=== PATIENT | male | born 1995 | race Caucasian/White ===

== ENCOUNTER 2023-07-01 23:10 | Emergency (ER) | payer MEDICAID, SELFPAY ==
[2023-07-01 23:11] VITALS: BP 147/94; PULSE 64; RESP 18; TEMP 36.1; O2SAT 100
[2023-07-01 23:22] VITALS: BMI 35.3
[2023-07-01] MEDS: Oxycodone/Apap 5/325 Tablet PO (23:37)
--- NOTE | 2023-07-01 23:38 | RAD_ITS ---
INDICATION: pain EXAMINATION/TECHNIQUE: X-RAY - RIGHT XR Ankle Min 3 Views 3 VIEWS COMPARISON: No relevant prior comparison study available FINDINGS: SOFT TISSUES: No soft tissue swelling or gas. No radiopaque foreign body. BONES/JOINTS: No acute fracture or subluxation.. Normal alignment. Preservation of the joint space.. No sclerotic or destructive changes observed. RAD/Ankle min 3 Views IMPRESSION: Negative. Electronically Signed: Moriah Arguelles MD at 0:15 EST ,
--- NOTE | 2023-07-02 00:26 | EX.ED.DYSGE1 ---
HPI History of Present Illness Chief Complaint: Lower Extremity Injury Informant: patient and spouse/S.O. Narrative Narrative: Patient is a 27-year-old male with no significant past medical history. He states on Thursday he jumped off a truck bed and when he landed it was on a piece of concrete that was uneven causing his right ankle to roll inward. He states he had pain at that time but felt that it would improve therefore he waited a few days. He states that despite taking it easy and giving it time the ankle has been persistently swollen and painful and has had difficulty ambulating. He has concern for fracture and therefore comes in for evaluation [facility] Medical History no medical history no medical history Home Medications oxycodone-acetaminophen 5 mg-325 mg tablet (Percocet) 1 tab PO Q6H PRN pain 3 days #12 tabs 07/02/23 [Rx Last Taken Unknown] Allergy/AdvReac Type Severity Reaction Status Date / Time Penicillins Allergy Severe Swelling Verified 07/01/23 23:12 Family History (Updated 07/01/23 @ 23:21 by Christina Douglass) Mother Thyroid disorder Surgical History (Updated 07/01/23 @ 23:21 by Christina Douglass) H/O wrist surgery Hx of appendectomy Social History (Updated 07/01/23 @ 23:21 by Christina Douglass) household members: significant other and children housing: apartment Smoking Status: Current every day smoker tobacco type: cigarettes ROS ROS ED Constitutional Constitutional ED: Denies chills or fever(s) ENT ENT ED: Denies sore throat Cardiovascular Cardiovascular: Denies chest pain Respiratory/Chest Respiratory/Chest: Denies cough or dyspnea Gastrointestinal Gastrointestinal: Denies abdominal pain, diarrhea, nausea or vomiting Genitourinary Genitourinary ED: Denies dysuria Musculoskeletal Musculoskeletal: Reports other Details: positive Right ankle pain Integumentary Denies rash Neurologic Neurologic: Denies headache(s) or paresthesias Hematologic/Lymphatic Hematologic/Lymphatic: Denies easy bleeding or easy bruising EXAM Physical Exam Const Vital Signs: 07/01/23 23:11 Temperature 96.9 F L Temperature Source Temporal Pulse Rate 64 Respiratory Rate 18 Blood Pressure 147/94 H Blood Pressure Mean 111 Pulse Ox 100 Oxygen Delivery Method Room Air Positive well nourished and well developed General Appearance ED: well developed HEENT HEENT Narrative: Normocephalic atraumatic Eyes PERRL and EOMs intact bilaterally Neck supple Resp normal respiratory effort and clear to auscultation bilaterally Cardio regular rate and regular rhythm Extremity Extremity Narrative: Right lower extremity is neurovascularly intact. There is mild soft tissue swelling along the lateral aspect. There is pain on palpation underneath the lateral malleolus. Achilles tendon is intact. There is mild laxity with inversion of the right ankle compared to the left. No obvious bony deformity or joint effusion. No pain with palpation of the right foot. remainder of the exam is normal Neuro oriented x3, CN's II-XII intact bilaterally and no sensory deficits noted Sensorium / Orientation: alert Psych mental status grossly normal Skin no rashes or lesions noted MDM MDM MDM Narrative Medical decision making narrative: Patient presented to the ER with report of a inversion injury to his right ankle. Despite taking time and reducing activity he has had persistent pain and swelling. Differential diagnosis is for acute ankle fracture versus grade 1 versus grade 2 ankle sprain versus ankle contusion. The x-ray was obtained to check for potential fracture and this revealed no fracture dislocation or joint effusion. By exam he has pain with inversion and slight laxity on the right compared to left indicating a grade 2 ankle sprain. He will be given a walking boot for stabilization but as he is neurovascular intact without any signs of acute fracture or dislocation he is otherwise safe for discharge History & Record Review Discussion w/independent historian: Patient and Significant other Radiography Diagnostic Testing: Clinical Impression(s) from Imaging Studies Ankle X-Ray 07/01/23 23:38 IMPRESSION: Negative. Electronically Signed: Moriah Arguelles MD at 0:15 EST , X-ray of the right ankle as interpreted by the emergency medicine physician reveals no acute fracture or dislocation or joint effusion Discharge Plan Triage Chief Complaint: Lower Extremity Injury ED Provider: Misha Cuenca Dx/Rx/DC Orders Clinical Impression: Grade 2 ankle sprain Instructions: ED Ankle Sprain (Adult) Prescriptions: New oxycodone-acetaminophen [Percocet] 5-325 mg tablet 1 tab PO Q6H PRN (Reason: pain) 3 Days Qty: 12 0RF Primary Care Provider: Care Physician,No Primary Referrals: Hubert Chiang DPM [Med Staff - Active Staff] - Care Physician,No Primary [Primary Care Provider] - Activity Restrictions/Additional Instructions: Please wear your walking boot to help stabilize your ankle which will reduce pain and speed healing. If you are still having symptoms after 7 to 10 days of wearing the walking boot then either return to the ER or follow-up with podiatry for further evaluation. Disposition Disposition: Home, Self Care
== END 2023-07-02 00:43 | disposition home or self-care (01) ==
PROVIDERS: Emergency Provider Emergency Medicine; Visit Provider Emergency Medicine
DX: S93.401A Sprain of unspecified ligament of right ankle, initial encounter (principal); F17.210 Nicotine dependence, cigarettes, uncomplicated; X50.1XXA Overexertion from prolonged static or awkward postures, initial encounter
CPT/HCPCS: 73610; 99283

== ENCOUNTER 2023-08-22 19:34 | Emergency (ER) | payer MEDICAID, SELFPAY ==
[2023-08-22 19:35] VITALS: BP 127/73; PULSE 117; RESP 24; TEMP 37.1; O2SAT 98; BMI 33.8
--- NOTE | 2023-08-22 20:10 | EDS_ITS ---
HPI History of Present Illness Chief Complaint: Weakness Informant: patient Onset/Context/Timing Onset: Today Context: Sudden Onset Quality: Weakness Location: Generalized Worsened by: Nothing Relieved by: Nothing Narrative Narrative: Patient presents with confusion that began today. states that the patient was bowling and a garage that was not well ventilated. states he had been doing this for approximately 4 hours. Patient started having some nausea and vomiting. states that the patient was confused and was not making sense when he was talking. Patient denies any hematemesis or coffee-ground emesis. Patient denies any urinary complaints. Patient admits to some subjective chills and a sore throat. Patient also admits to a headache. Patient states he feels weak all over. PFSH [facility] Medical History Asthma Home Medications ondansetron 4 mg disintegrating tablet 4 mg PO Q8H PRN PRN Nausea #10 tabs 08/22/23 [Rx Last Taken Unknown] Allergy/AdvReac Type Severity Reaction Status Date / Time Penicillins Allergy Severe Swelling Verified 08/22/23 19:40 Family History (Updated 07/01/23 @ 23:21 by Christina Douglass) Mother Thyroid disorder Surgical History H/O wrist surgery Hx of appendectomy Social History household members: significant other and children housing: apartment Smoking Status: Current every day smoker tobacco type: cigarettes ROS ROS ED Constitutional Constitutional ED: Reports chills and subjective; Denies fever(s) Eyes Eyes: Denies blurry vision or change in vision ENT ENT ED: Reports sore throat; Denies rhinorrhea Cardiovascular Cardiovascular: Denies chest pain or palpitations Respiratory/Chest Respiratory/Chest: Denies cough or dyspnea Gastrointestinal Gastrointestinal: Reports nausea and vomiting Genitourinary Genitourinary ED: Denies dysuria or hematuria Musculoskeletal Musculoskeletal: Denies back pain or neck pain Integumentary Denies abscess or rash Neurologic Neurologic: Reports headache(s) and paresthesias; Denies weakness Allergic/Immunologic Allergic/Immunologic ED: Denies mouth swelling or urticaria EXAM Physical Exam Const Vital Signs: 08/22/23 19:35 08/22/23 19:40 08/22/23 20:52 Temperature 98.7 F Temperature Source Oral Pulse Rate 117 H Pulse Rate [Lying] 104 H Pulse Rate [Sitting (for 1 minute prior to obtaining)] 118 H Respiratory Rate 24 H Respiratory Effort Normal Non-Labored Respiratory Pattern Tachypnea Blood Pressure 127/73 H Blood Pressure [Lying] 142/58 H Blood Pressure [Sitting (for 1 minute prior to obtaining)] 114/77 Blood Pressure Mean 91 Blood Pressure Mean [Lying] 86 Blood Pressure Mean [Sitting (for 1 minute prior to obtaining)] 89 Pulse Ox 98 Oxygen Delivery Method Room Air 08/22/23 21:34 Temperature Temperature Source Pulse Rate 105 H Pulse Rate [Lying] Pulse Rate [Sitting (for 1 minute prior to obtaining)] Respiratory Rate Respiratory Effort Respiratory Pattern Blood Pressure 135/73 H Blood Pressure [Lying] Blood Pressure [Sitting (for 1 minute prior to obtaining)] Blood Pressure Mean 93 Blood Pressure Mean [Lying] Blood Pressure Mean [Sitting (for 1 minute prior to obtaining)] Pulse Ox 96 Oxygen Delivery Method Room Air Positive well nourished and well developed General Appearance ED: well developed and NAD Neck supple and no JVD Resp normal respiratory effort and clear to auscultation bilaterally Cardio regular rhythm Rate: tachycardic GI non-distended Palpation: soft and tender epigastric, LUQ and RUQ; Negative for guarding or rebound tenderness present Neuro oriented x3, CN's II-XII intact bilaterally and no sensory deficits noted Sensorium / Orientation: alert Motor Exam: strength 5/5 throughout Psych mental status grossly normal MDM MDM MDM Narrative Medical decision making narrative: Differential diagnosis includes dehydration, acute kidney injury, electrolyte abnormality, gastroenteritis, intracranial bleeding, pneumonia, and pneumonitis. CT scan of the brain will be obtained to assess for intracranial bleeding. Chest x-ray will be obtained to assess for pneumonia and pneumonitis. CBC will be obtained to assess for leukocytosis and anemia. Comprehensive metabolic profile will be obtained to assess for hepatic function, renal function, and electrolyte abnormality. Serum lactate will be obtained to assess for sepsis. PT with INR and PTT will be obtained to assess for coagulopathy. Blood cultures will be obtained to assess for sepsis. Lab Data Attestation: I reviewed the patient's lab results. Lab results narrative: CBC was reviewed. There is a mild leukocytosis of 18.5. The remainder is within normal limits. Comprehensive metabolic profile was reviewed and was within normal limits. PT was INR and PTT were reviewed and were within normal limits. Serum lactate was reviewed and was normal at 1.5. Urinalysis was reviewed. There is no evidence of urinary tract infection or hematuria. COVID- 19 PCR was reviewed and was negative. Influenza PCR was reviewed and was negative. RSV PCR was reviewed and was negative. Labs: Laboratory Results - last 24 hr 08/22/23 08/22/23 20:30 20:50 WBC 18.5 H RBC 5.28 Hgb 16.1 Hct 47.7 MCV 90.3 MCH 30.5 MCHC 33.8 RDW Std Deviation 41.1 RDW Coeff of Jessica 12.5 Plt Count 220 MPV 11.0 Immature Gran % (Auto) 0.400 Neut % (Auto) 91.8 H Lymph % (Auto) 4.1 L [place] % (Auto) 2.8 Eos % (Auto) 0.7 Baso % (Auto) 0.2 Absolute Neuts (auto) 17.0 H Absolute Lymphs (auto) 0.75 L Nucleated RBC % 0 PT 13.5 INR 1.0 APTT 26.1 Sodium 140 Potassium 4.1 Chloride 110 H Carbon Dioxide 24.0 Anion Gap 6 BUN 19 H Creatinine 1.23 Estim Creat Clear Calc 119.56 Est GFR (MDRD) Af Amer 90 Est GFR (MDRD) Non-Af 74 BUN/Creatinine Ratio 15.4 Glucose 117 H Lactic Acid 1.5 Calcium 9.0 Total Bilirubin 0.50 AST 28 ALT 75 H Alkaline Phosphatase 73 Total Creatine Kinase 162 Total Protein 7.5 Albumin 3.9 Globulin 3.6 Albumin/Globulin Ratio 1.1 Urine Color Yellow Urine Clarity Clear Urine pH 6.0 Ur Specific [place] 1.020 Urine Protein 30 H Urine Glucose (UA) Normal Urine Ketones 5 H Urine Occult Blood 10 H Urine Nitrite Negative Urine Bilirubin 1 H Urine Urobilinogen 1 H Ur Leukocyte Esterase 25 H Urine RBC 0-5 SEEN Urine WBC 0-5 SEEN Ur Squamous Epith Cells 0-5 SEEN Urine Bacteria 0 SEEN Urine Mucus 0 SEEN Radiography Diagnostic Testing: Clinical Impression(s) from Imaging Studies Brain CT 08/22/23 20:17 IMPRESSION: Normal unenhanced CT scan of the brain. Electronically Signed: Jude Serrano MD at 21:35 EST , Chest X-Ray 08/22/23 21:01 IMPRESSION: Poor inspiration with some bibasilar atelectasis. Electronically Signed: Jude Serrano MD at 21:15 EST , CT scan of the brain was obtained. There is no acute intracranial abnormality. This was interpreted by the radiologist and was also independently reviewed by myself. PA and lateral chest x-ray was obtained. There are 2 views. On my independent interpretation, lung cameron are clear. There is normal cardiac silhouette. B trisha thorax is normal. There is no acute process noted. Radiologist also interpreted the x-ray and agrees. Treatment and Re-Evaluation :: Orthostatic vital signs were obtained and patient's blood pressure did drop from lying to sitting. Patient was given IV fluids and Zofran. Patient is feeling better on reevaluation. Patient was advised of his findings. Patient was given a prescription for Zofran. Patient was instructed to drink plenty of fluids. Patient was instructed to follow-up with his primary care physician in 5 to 7 days. Patient and family understood and were agreeable with the plan. All questions were answered. Discharge Plan Triage Chief Complaint: Weakness ED Provider: Carlos Diehl Dx/Rx/DC Orders Clinical Impression: Dyspnea, Dehydration Instructions: ED Dehydration (Adult) Prescriptions: New ondansetron [ondansetron] 4 mg tablet,disintegrating 4 mg PO Q8H PRN PRN (Reason: Nausea) Qty: 10 0RF Primary Care Provider: Care Physician,No Primary Referrals: Wade Vickers MD [Med Staff - Alarm Installation Technician] - 5-7 Days Care Physician,No Primary [Primary Care Provider] - Disposition Disposition: Home, Self Care
--- OUTSIDE RECORDS SUMMARY | 2023-08-22 20:14 | XMS RPT_ITS | CCD ---
Author Name Unknown Address [address] [place] [address] Organization [facility] Care Team Providers Care Oracle Security Consultant Name Role Phone [phone] Unavailable Unavailable MARION HERZOG Unavailable Unavailable Unavailable Primary Care Provider Unavailabl e Unavailable Primary Care Provider Unavailabl e Unavailable Primary Care Provider Unavailabl e No, Physician Primary Care Provider Unavailabl e GEORGINA NOONAN Attending Unavailable NO, PHYSICIAN Primary Care Unavailable HUBERT DARNELL Attending Unavailable NO, PHYSICIAN Primary Care Unavailable HUBERT DARNELL JR. Attending Unavail able NO, PHYSICIAN Primary Care Unavailable NO, PHYSICIAN Primary Care Unavailable TORI GUERRA Attending Unavailabl e Unavailable Primary Care Provider Unavailabl e LORI BLANCHARD Referring Unavailable LORI BLANCHARD Attending Unavailable LORI CONCEPCION Unavailable Unavailable Primary Care Provider Unavailabl e Allergies Allergy Classification Reported Allergen(s) Allergy Type Date of Onset Reaction(s) Facility Penicillins (antibiotic) (3 sources) Amoxicillin Drug Allergy 0 Swelling, Anaphylaxis [facility] (1 source) penicillin; Translations: [PCN (penicillin)] Drug Allergy [facility] (6 sources) Amoxicillin Drug Allergy 0 Swelling [facility] (10 sources) Penicillins; Translations: [PENICILLINS] Propensity to adverse reactions to drug 0 Swelling [facility] (1 source) Penicillins Propensity to adverse reactions to drug 1 Anaphylaxis [facility] (1 source) Penicillins Drug Allergy 0 Anaphylaxis, Swelling [facility] Medications Current Medications Medication Drug Class(es) Dates Sig (Normalized) Sig (Original) [id number] 200 actuat albuterol 0.09 mg/actuat metered dose inhaler (2 sources) beta2-Adrenergic Agonist Start: 05-10-2020 take 2 puff(s) by inhalation every four hours as needed for wheezing albuterol 108 (90 Base) MCG/ACT Aero Soln inhaler Inhale 2 puffs every 4 hours as needed for Wheezing. 1 Inhaler 0 05/10/2020 Active albuterol 108 (90 Base) MCG/ACT Aero Soln inhaler (1 source) Start: 05-10-2020 take 2 puff(s) by inhalation every four hours as needed for wheezing albuterol 108 (90 Base) MCG/ACT Aero Soln inhaler Inhale 2 puffs every 4 hours as needed for Wheezing. 1 Inhaler 0 05/10/2020 Active azithromycin 500 mg oral tablet (2 sources) Macrolide Antimicrobial Start: 08-09-2022 End: 08-13-2022 take 1 tablet by mouth once daily azithromycin 500 MG tablet Take 1 tablet by mouth daily for 4 days. 4 tablet 0 08/09/2022 08/13/2022 Active Completed/Discontinued Medications Medication Drug Class(es) Dates Sig (Normalized) Sig (Original) acetaminophen 500 mg oral tablet (1 source) Start: 05-10-2020 End: 05-10-2020 acetaminophen (TYLENOL) tablet 1,000 mg Problems Active Problems Problem Classification Problem Date Documented Date Episodic/Chronic Chronic obstructive pulmonary disease and bronchiectasis (3 sources) Bronchitis; Translations: [Bronchitis, not specified as acute or chronic] Onset: 08-09-2022 Episodic Disorders of teeth and jaw (1 source) Jaw pain; Translations: [Jaw pain] Episodic Fever of unknown origin (1 source) Fever; Translations: [Fever, unspecified fever cause] Episodic Immunizations and screening for infectious disease (2 sources) Exposure to sexually transmissible disorder; Translations: [Contact with and (suspected) exposure to other viral communicable diseases] Episodic Other ear and sense organ disorders (3 sources) Hearing loss; Translations: [Unspecified hearing loss, unspecified ear] Onset: 06-04-2021 Chronic Other lower respiratory disease (1 source) Cough; Translations: [Cough] Episodic Other skin disorders (1 source) Folliculitis; Translations: [Follicular disorder, unspecified] Episodic Other upper respiratory infections (3 sources) Upper respiratory infection; Translations: [Acute upper respiratory infection, unspecified] Onset: 08-09-2022 Episodic Skin and subcutaneous tissue infections (2 sources) Cellulitis of foot; Translations: [Cellulitis of right lower limb] Episodic Skin and subcutaneous tissue infections (1 source) Paronychia of finger of right hand; Translations: [Paronychia of finger of right hand] Sprains and strains (1 source) Strain of muscle, fascia and tendon of lower back, initial encounter; Translations: [Strain of lumbar region, initial encounter] Onset: 05-09-2022 Episodic Superficial injury; contusion (2 sources) Contusion of hand; Translations: [Contusion of lower back and pelvis, initial encounter] Onset: 05-09-2022 Episodic Unclassified (1 source) Acute bilateral low back pain without sciatica; Translations: [Acute bilateral low back pain without sciatica] Onset: 05-09-2022 Past or Other Problems Problem Classification Problem Date Documented Da te Episodic/Chronic Allergic reactions (1 source) Allergy, unspecified, initial encounter; Translations: [Allergic rash present on examination] Episodic Other ear and sense organ disorders (3 sources) Acute infective otitis externa; Translations: [Other infective otitis externa, left ear] Onset: 06-04-2021 Episodic NEGATED: Highlighted row has been ruled out!Unclassified (1 source) No known active problems 05-10-2020 Results Test Name Value Interpretation Reference Range Facil ity Vital Signs Date Time Vital Sign Value Performing Clinician Facility 08-09-2022 01:30-0500 Body height 185.4 cm Lori Concepcion DO Work Phone: [facility] 08-09-2022 01:29-0500 Body temperature 98.49 [degF] Lori Concepcion DO Work Phone: [facility] 08-09-2022 01:29-0500 Diastolic blood pressure 74 mm[Hg] Lori Concepcion DO Work Phone: [facility] 08-09-2022 01:29-0500 Heart rate 78 /min Lori Concepcion DO Work Phone: [facility] 08-09-2022 01:29-0500 Respiratory rate 19 /min Lori Concepcion DO Work Phone: [facility] 08-09-2022 01:29-0500 SaO2% (BldA) [Mass fraction] 98 % Lori Concepcion DO Work Phone: [facility] 08-09-2022 01:29-0500 Systolic blood pressure 133 mm[Hg] Lori Concepcion DO Work Phone: [facility] 02-18-2022 22:29-0400 Diastolic blood pressure 67 mm[Hg] Wayne Flores MD Work Phone: 4(853)948-002983 [place] [address] 02-18-2022 22:29-0400 Heart rate 59 /min Wayne Flores MD Work Phone: 4(552)293-040283 [place] [address] 02-18-2022 22:29-0400 Respiratory rate 16 /min Wayne Flores MD Work Phone: 3(982)987-661783 [place] [address] 02-18-2022 22:29-0400 SaO2% (BldA) [Mass fraction] 98 % Wayne Flores MD Work Phone: 2(281)956-402883 [place] [address] 02-18-2022 22:29-0400 Systolic blood pressure 125 mm[Hg] Wayne Flores MD Work Phone: 4(162)455-447183 [place] [address] 02-18-2022 19:39-0400 Body height 182.9 cm Wayne Flores MD Work Phone: 4(016)898-630283 [place] [address] 02-18-2022 19:39-0400 Body mass index (BMI) [Ratio] 27.12 kg/m2 Wayne Flores MD Work Phone: 0(923)056-818083 [place] [address] 02-18-2022 19:39-0400 Body weight 90.72 kg Wayne Flores MD Work Phone: 6(819)166-200583 [place] [address] 02-18-2022 19:38-0400 Body temperature 98.71 [degF] Wayne Flores MD Work Phone: 5(081)344-721183 [place] [address] 06-04-2021 14:02-0400 Body height 182.9 cm Hubert Darnell DO Work Phone: [facility] 06-04-2021 14:02-0400 Body mass index (BMI) [Ratio] 35.52 kg/m2 Hubert Darnell DO Work Phone: [facility] 06-04-2021 14:02-0400 Body temperature 98.6 [degF] Hubert Darnell DO Work Phone: [facility] 06-04-2021 14:02-0400 Body weight 118.8 kg Hubert Darnell DO Work Phone: [facility] 06-04-2021 14:02-0400 Diastolic blood pressure 75 mm[Hg] Hubert Navasde DO Work Phone: [facility] 06-04-2021 14:02-0400 Heart rate 97 /min Hubert Darnell DO Work Phone: [facility] 06-04-2021 14:02-0400 Systolic blood pressure 115 mm[Hg] Hubert Darnell DO Work Phone: [facility] 02-14-2021 08:55-0400 Body height 182.9 cm Georgina Saran DO Work Phone: [facility] 02-14-2021 08:55-0400 Body mass index (BMI) [Ratio] 29.84 kg/m2 Georgina Saran DO Work Phone: [facility] 02-14-2021 08:55-0400 Body temperature 98.01 [degF] Georgina Saran DO Work Phone: [facility] 02-14-2021 08:55-0400 Body weight 99.79 kg Georgina Saran DO Work Phone: [facility] 02-14-2021 08:55-0400 Diastolic blood pressure 92 mm[Hg] Georgina Saran DO Work Phone: [facility] 02-14-2021 08:55-0400 Heart rate 80 /min Georgina Saran DO Work Phone: [facility] 02-14-2021 08:55-0400 Respiratory rate 14 /min Georgina Saran DO Work Phone: [facility] 02-14-2021 08:55-0400 SaO2% (BldA) [Mass fraction] 97 % Georgina Saran DO Work Phone: [facility] 02-14-2021 08:55-0400 Systolic blood pressure 107 mm[Hg] Georgina Noonan DO Work Phone: [facility] 01-13-2021 10:08-0400 Body height 182.9 cm Orlando Almonte DO Work Phone: [facility] 01-13-2021 10:07-0400 Body temperature 97.39 [degF] Orlando Almonte DO Work Phone: [facility] 01-13-2021 10:07-0400 Diastolic blood pressure 94 mm[Hg] Orlando Graysonk DO Work Phone: [facility] 01-13-2021 10:07-0400 Heart rate 75 /min Orlando Almonte DO Work Phone: [facility] 01-13-2021 10:07-0400 Respiratory rate 16 /min Orlando Almonte DO Work Phone: [facility] 01-13-2021 10:07-0400 SaO2% (BldA) [Mass fraction] 99 % Orlando Almonte DO Work Phone: [facility] 01-13-2021 10:07-0400 Systolic blood pressure 136 mm[Hg] Orlando Almonte DO Work Phone: [facility] 05-10-2020 13:34-0400 BMI (Body Mass Index) 28.37 kg/m2 [facility] 05-10-2020 13:34-0400 Body weight 97.52 kg [facility] [employer] [facility] 05-10-2020 13:34-0400 Height 185.4 cm [facility] [employer] [facility] 05-10-2020 13:33-0400 Body Temperature 97.81 [degF] [facility] [employer] [facility] 05-10-2020 13:33-0400 BP Diastolic 70 mm[Hg] [facility] [employer] [facility] 05-10-2020 13:33-0400 BP Systolic 133 mm[Hg] [facility] [employer] [facility] 05-10-2020 13:33-0400 Pulse (Heart Rate) 98 /min [facility] [employer] [facility] 05-10-2020 13:33-0400 Pulse Oximetry 98 % [employer] [facility] 05-10-2020 13:33-0400 Respiratory Rate 16 /min [facility] 02-16-2020 17:16-0400 Height 177.8 [facility] 17:15-0400 Body Temperature 98.01 [degF] [facility]-16-[facility] 17:15-0400 BP Diastolic 67 mm[Hg] [facility] 02-16-2020 17:15-0400 BP Systolic 130 mm[Hg] [facility] 02-16-2020 17:15-0400 Pulse (Heart Rate) 88 /min [facility] 02-16-2020 17:15-0400 Pulse Oximetry 96 % [facility] 02-16-2020 17:15-0400 Respiratory Rate 16 /min [facility] 11-15-2019 06:11-0400 BMI (Body Mass Index) 29.16 kg/m2 [facility] 11-15-2019 06:11-0400 Body weight 97.52 kg [facility] 11-15-2019 06:11-0400 Height 182.9 cm [facility] 11-15-2019 06:10-0400 Body Temperature 98.2 [degF] [facility] 11-15-2019 06:10-0400 BP Diastolic 70 mm[Hg] [facility] 11-15-2019 06:10-0400 BP Systolic 125 mm[Hg] [facility] 11-15-2019 06:10-0400 Pulse (Heart Rate) 63 /min [facility] 11-15-2019 06:10-0400 Pulse Oximetry 98 % [facility] 11-15-2019 06:10-0400 Respiratory Rate 18 /min [facility] 09-15-2019 23:28-0500 Body weight 90.72 kg [facility] Encounters Encounter Date Encounter Type Care Provider Facility Start: 08-09-2022 End: 08-09-2022 Emergency department patient visit LORI CONCEPCION [facility] Start: 08-09-2022 End: 08-09-2022 Emergency department patient visit Lori Concepcion DO Work Phone: [facility] Start: 05-14-2022 ambulatory LORI Posadas [facility] Start: 05-09-2022 End: 05-09-2022 Emergency department patient visit Facility:[facility] Start: 02-18-2022 End: 02-18-2022 Emergency department patient visit Wayne Flores MD Work Phone: [facility] Start: 06-11-2021 End: 06-11-2021 Emergency department patient visit [facility] Start: 06-04-2021 End: 06-04-2021 ambulatory [facility] Start: 06-04-2021 End: 06-04-2021 [facility] Procedures Date Procedure Procedure Detail Performing Clinician Start: 02-18-2022 Ct maxillofacial w/o contrast material Wayne Flores MD Work Phone: Start: 02-14-2021 Gluc bld gluc mntr d ev cleared fda spec home use Georgina Noonan DO Work Phone: Start: 02-14-[address] [facility] Start: 01-13-2021 Radex foot complete minimum 3 views Orlando Almonte DO Work Phone: Start: 01-13-2021 Bacterial culture an d sensitivity Orlando Almonte DO Work Phone: Start: 05-10-2020 Iadna nos amplified probe tq each organism Gladis Hallman Work Phone: Start: 05-10-2020 Iaadiadoo streptococ cus group a Gladis Hallman Work Phone: Start: 05-10-2020 Throat culture Shorty Adames Work Phone: Start: 05-10-2020 Plain chest X-ray Gladis Hallman Work Phone: Start: 11-15-2019 Radiography of hand Rob Anglin Work Phone: Start: 08-13-2014 SURGICAL PATHOLOGY, CONVERTED Masood Neville MD Work Phone: Plan of Treatment Date Care Activity Detail Author Start: 04-10-2023 Influenza vaccination Influenza Vaccine (#1) [facility] Start: 08-10-2022 Depression Assessment Depression Assessment [facility] Start: 04-10-2022 Influenza vaccination INFLUENZA VACCINE (#1) [facility] Start: 06-25-2021 End: 06-25-2021 Patient encounter procedure 06/25/2021 Office Visit Otolaryngology Hubert Darnell, DO [address] [id number] [facility] Start: 04-10-2021 Influenza vaccination [facility] Start: 04-10-2020 Influenza vaccination [facility] Start: 04-10-2019 Influenza vaccination INFLUENZA VACCINE (#1) [facility] Start: 2013 Third diphtheria, tetanus and acellular pertussis (DTaP) vaccination TDAP (ADULT) [facility] Start: 2013 Urine microalbumin profile DTaP,Tdap,Td Vaccine (1 - Tdap) [facility] Start: 2012 Hepatitis C screening Hepatitis C Screening [facility] Start: 2012 Hepatitis C Screening Hepatitis C Screening [facility] Start: 2012 HIV Screening HIV Screening [facility] Start: 2012 Tetanus vaccination TETANUS [facility] Start: 2009 HIV screening [facility] Start: 2007 HIV screening HIV SCREENING DISCUSSION [facility] Start: 2006 COVID-19 VACCINE (1) COVID-19 VACCINE (1) [facility] Start: 2006 Depression screening using PHQ-9 (Patient Health Questionnaire 9) score Depression Screening (PHQ-2/9) [facility] Start: 2005 Vaccination for human papillomavirus HPV VACCINE ADOL (1 - Male 2-dose series) [facility] Start: 2000 PNEUMOCOCCAL VACCINE SERIES (1 - PCV) PNEUMOCOCCAL VACCINE SERIES (1 - PCV) [facility] Start: 2000 Pneumococcal Vaccine: Ped or At-Risk (1 of 2 - PPSV23) Pneumococcal Vaccine: Ped or At-Risk (1 of 2 - PPSV23) [facility] Start: 1997 History and physical examination, annual for health maintenance Wellness Visit [facility] Start: 02-23-1995 COVID-19 VACCINE (#1) COVID-19 VACCINE (#1) [facility] Start: 1994 Hepatitis B Vaccine (1 of 3 - 3-dose series) Hepatitis B Vaccine (1 of 3 - 3-dose series) [facility] Start: 1994 Hepatitis C antibody, confirmatory test HEPATITIS C VIRUS SCREENING [facility] Start: 1994 Hepatitis C screening HEPATITIS C VIRUS SCREENING [facility] Start: 1994 Tetanus vaccination [facility] Bacterial culture an d sensitivity CULTURE WOUND Microbiology STAT 01/13/2021 10:55 AM EDT [facility] NOVEL CORONAVIRUS- NASOPHARYNGEAL NOVEL CORONAVIRUS- NASOPHARYNGEAL Microbiology STAT 05/10/2020 2:41 PM EDT [facility] Throat culture CULTURE THROAT Microbiology Routine 05/10/2020 2:30 PM EDT [facility] Payers Date Payer Category Payer Unknown [facility] [id number] 2021-Present [address] [place] [address] [id number] 2021 Medicaid [id number] 2019 Unknown [employer] xxxxxxxxxxx 2019-Present xxxxxxxxxxx [id number] 2019 Unknown [employer] [id number] 2019-Present [id number] 1994 Unknown [id number] 1994 Unknown [id number] 1994 Unknown [id number] 1994 Unknown [id number] 1994 Unknown [id number] 1994 Unknown [id number] Unknown [id number] Social History Date Type Detail Facility Start: 09-15-2019 End: 11-15-2019 Tobacco smoking status NVIS Current every day smoker [facility] History of tobacco use Cigarette Smoker [employer] Start: 11-15-2019 End: 2022 Cigarettes smoked current (pack per day) - [facility] Start: 11-15-2019 End: 08-09-2022 Alcohol intake Ex-drinker (finding) [facility] Start: 1994 Sex Assigned At Not on file [employer] Exposure to SARS-CoV -2 (event) Unable to assess [employer] Start: 09-15-2019 End: 02-16-2020 Tobacco use and exposure [facility] Start: 02-16-2020 End: 01-13-2021 Alcohol intake Current [facility]finding[facility] Start: 04-29-2022 End: 08-09-2022 Exposure to SARS-CoV-2 (event) Not sure [employer] Start: 02-14-2021 End: 06-04-2021 Alcohol intake Lifetime non-drinker (finding) [facility] Start: 02-14-2021 History SDOH Alcohol Frequency 1 [facility] Start: 02-14-2021 Tobacco Comment 5 per day [facility] Start: 2022 Area Deprivation Index [facility] National Score (1-10 0), lower number is lower risk 92 [facility] Clinical Notes 01-13-2021 to 08-09-2022 Discharge InstructionsAttachmentsLori Concepcion DO - 08/09/2022 1:29 AM Jeramy Concepcion DO - 08/09/2022 1:29 AM Marquez Flores MD - 02/18/2022 10:40 PM EDTPatient InstructionsInstructions Note Date & Type Note Facility 08-09-2022 Hospital Discharg e instructions Lori Concepcion DO - 08/09/2022 1:45 AM EST Increase fluids. Drink plenty of water. Stay hydrated. Zithromax once a day for the next 4 days. Bromfed-DM syrup 4 times a day for cough congestion runny nose. Flonase nasal spray to spray twice a day for 7 days. Stop smoking. Recheck with her primary care provider in 2-4 days as needed. Return if worse cough, congestion, runny nose, shortness of breath, wheezing, weakness/lethargy, poor oral intake, fever. The following attachments cannot be sent through Care Everywhere.URI (Upper Respiratory Infection) (Tongan)Acute Bronchitis or Chest Cold Care Instructions ([facility]) (Tongan)Tobacco Use: Quitting (Tongan)documented in this encounter [facility] 08-09-2022 Physician Emergen cy department Note Emergency Department Report [facility] EMERGENCY MEDICINE Service Date:.08/09/22 PCP: No primary care provider on file. Chief Complaint: Chief Complaint Patient presents with Cough Headache One week of chills, CLEARY and non-productive cough. Pt stated I haven't been able to sleep because of this cough. Denied fever, stated I had a fever the first couple days but none since. HPI Carlyle Herrera is a 26 y.o. male presents to the ED today due to cough x 1 week. 26-year-old male presents to ER with complaint of a cough for about a week. Copy of clear yellow phlegm. States she has had some fever and chills for the past few days. Cough seems to be worse when he lays down. He is complaining of runny nose and nasal congestion. Some mild sore throat. He says it feels itchy. Vital signs are stable. He is afebrile. Pulse ox is 98% on room air. He is a smoker. States he is not taking any prescription medicines. Denies any other health problems. Review of Systems: Review of Systems Constitutional: Negative for chills, fever and unexpected weight change. HENT: Positive for rhinorrhea and sore throat. Negative for sinus pressure, sinus pain and trouble swallowing. Eyes: Negative for pain and redness. Respiratory: Positive for cough. Negative for shortness of breath and wheezing. Cardiovascular: Negative for chest pain, palpitations and leg swelling. Gastrointestinal: Negative for abdominal pain. Genitourinary: Negative for flank pain. Musculoskeletal: Negative for back pain and neck pain. Skin: Negative for rash. Neurological: Negative for dizziness and headaches. All other systems reviewed and are negative. Past Medical History: Past Medical History: Diagnosis Date Asthma Past Surgical History: Past Surgical History: Procedure Laterality Date APPENDECTOMY HAND SURGERY Right PENILE SURGERY Allergies: Allergies Allergen Reactions Amoxicillin Swelling Penicillins Swelling Medications: Discharge Medication List as of 08/09/2022 1:53 AM START taking these medications Details azithromycin 500 MG tablet Take 1 tablet by mouth daily for 4 days. Print Disp-4 tablet, R-0 fluticasone 50 MCG/ACT Suspension nasal spray 2 sprays per nostril BID for 7 days. Print Disp-16 g, R-0 dzijaohosjwlkcq-eibcgwmribdoibi-dlr tromethorphan (Bromfed DM) 30-2-10 MG/5ML Syrup Take 5 mL by mouth every 6 hours as needed for Cold Symptoms, Cough, Congestion or Rhinitis. Print Disp-118 mL, R-0 STOP taking these medications diclofenac sodium [address] Comments: Reason for Stopping: tizanidine 2 MG tablet Comments: Reason for Stopping: traMADol 50 MG tablet Comments: Reason for Stopping: Family History: History reviewed. No pertinent family history. Social History: Social History Socioeconomic History Marital status: Single Spouse name: Not on file Number of children: Not on file Years of education: Not on file Highest education level: Not on file Occupational History Not on file Tobacco Use Smoking status: Every Day Packs/day: 0.50 Types: Cigarettes Smokeless tobacco: Never Substance and Sexual Activity Alcohol use: Not Currently Drug use: Never Sexual activity: Not on file Other Topics Concern Not on file Social History Narrative Not on file Social Determinants of Health Financial Resource Strain: Not on file Food Insecurity: Not on file Transportation Needs: Not on file Physical Activity: Not on file Stress: Not on file Social Connections: Not on file Intimate Partner Violence: Not on file Housing Stability: Not on file Physical Exam: Physical Exam Vitals and nursing note reviewed. Constitutional: General: He is not in acute distress. Appearance: Normal appearance. He is normal weight. He is not ill-appearing or toxic-appearing. HENT: Head: Normocephalic and atraumatic. Right Ear: Tympanic membrane normal. Nose: Congestion present. Mouth/Throat: Mouth: Mucous membranes are moist. Pharynx: Oropharynx is clear. No oropharyngeal exudate or posterior oropharyngeal erythema. Eyes: General: Right eye: No discharge. Left eye: No discharge. Extraocular Movements: Extraocular movements intact. Conjunctiva/sclera: Conjunctivae normal. Pupils: Pupils are equal, round, and reactive to light. Cardiovascular: Rate and Rhythm: Normal rate and regular rhythm. Pulses: Normal pulses. Heart sounds: Normal heart sounds. No murmur heard. No gallop. Pulmonary: Effort: Pulmonary effort is normal. No respiratory distress. Breath sounds: Normal breath sounds. No wheezing, rhonchi or rales. Abdominal: General: Abdomen is flat. Bowel sounds are normal. Palpations: Abdomen is soft. Tenderness: There is no abdominal tenderness. There is no guarding or rebound. Musculoskeletal: General: No swelling or tenderness. Normal range of motion. Cervical back: Normal range of motion and neck supple. No rigidity or tenderness. Right lower leg: No edema. Left lower leg: No edema. Skin: General: Skin is warm and dry. Capillary Refill: Capillary refill takes less than 2 seconds. Findings: No bruising, erythema or rash. Neurological: General: No focal deficit present. Mental Status: He is alert and oriented to person, place, and time. Vital Signs During ED Visit Patient Vitals for the past 24 hrs: BP Temp Temp src Pulse Resp SpO2 Height 08/09/22 0130 -- -- -- -- -- -- 1.854 m (6' 1 ) 08/09/22 0129 133/74 98.5 F (36.9 C) Tympanic 78 19 98 % -- Orders/Results: Orders Placed This Encounter guaiFENesin-dextromethorphan (ROBITUSSIN DM) 100-10 MG/5ML syrup 10 mL Azithromycin (ZITHROMAX) tablet 500 mg azithromycin 500 MG tablet cniyxhhdwjbnrev-sdfpudctdvmjzwd-lqa tromethorphan (Bromfed DM) 30-2-10 MG/5ML Syrup fluticasone 50 MCG/ACT Suspension nasal spray Radiographic Imaging No orders to display Procedures: Procedures Moderate Sedation Procedure: No ED Summary/MDM DDx; upper respiratory infection, I will syndrome, flu, cold, pharyngitis, sinusitis, bronchitis, pneumonia. 26-year-old male presents to ER with complaint of cough congestion for about a week. Coughing up clear yellow phlegm. Runny nose and congestion. Vital signs are stable. He is afebrile. Pulse ox is 98% on room air.. Patient states he is a smoker. Physical exam was unremarkable. Lungs are clear. Moderate nasal congestion with some posterior drainage. Throat is slightly erythematous without exudate. Lungs are clear to auscultation bilaterally with some mild rails that clears with cough. He is not in any respiratory distress. Will treat for upper respiratory infection and bronchitis. Patient given a dose of Zithromax while in the ER. Also had Robitussin-DM. He will be on Zithromax once a day for next 4 days. Flonase nasal spray to spray bilaterally twice a day for 7 days. Bromfed-DM cough syrup 4 times a day as needed for cough congestion runny nose. Patient placed to quit smoking. Increase fluids. Drink plenty of water. Stay hydrated. Tylenol, ibuprofen as needed for pain fever and body aches. Recheck with his primary care provider in 2-4 days as needed. Return if worse cough, congestion, shortness of breath, wheezing, weakness/lethargy, poor oral intake, fever. Discharged home in good condition with his girlfriend. He voices understanding of his discharge instructions. Clinical Impression: 1. Upper respiratory tract infection, unspecified type 2. Bronchitis No follow-ups on file. Discharge Medication List as of 08/09/2022 1:53 AM START taking these medications Details azithromycin 500 MG tablet Take 1 tablet by mouth daily for 4 days. Print Disp-4 tablet, R-0 fluticasone 50 MCG/ACT Suspension nasal spray 2 sprays per nostril BID for 7 days. Print Disp-16 g, R-0 afcaslcseotcdxz-jfrqhwfbxdyifzd-kom tromethorphan (Bromfed DM) 30-2-10 MG/5ML Syrup Take 5 mL by mouth every 6 hours as needed for Cold Symptoms, Cough, Congestion or Rhinitis. Print Disp-118 mL, R-0 Discharge Medication List as of 08/09/2022 1:53 AM STOP taking these medications diclofenac sodium 50 MG Tab Comments: Reason for Stopping: tizanidine 2 MG tablet Comments: Reason for Stopping: traMADol 50 MG tablet Comments: Reason for Stopping: An After Visit Summary was printed and given to the patient with above information. . Lori Concepcion DO 08/09/22211 [facility] 08-09-2022 Emergency department Note Emergency Department Report [facility] EMERGENCY MEDICINE Service Date:.08/09/22 PCP: No primary care provider on file. Chief Complaint: Chief Complaint Patient presents with Cough Headache One week of chills, CLEARY and non-productive cough. Pt stated I haven't been able to sleep because of this cough. Denied fever, stated I had a fever the first couple days but none since. COURTNEY Herrera is a 26 y.o. male presents to the ED today due to cough x 1 week. 26-year-old male presents to ER with complaint of a cough for about a week. Copy of clear yellow phlegm. States she has had some fever and chills for the past few days. Cough seems to be worse when he lays down. He is complaining of runny nose and nasal congestion. Some mild sore throat. He says it feels itchy. Vital signs are stable. He is afebrile. Pulse ox is 98% on room air. He is a smoker. States he is not taking any prescription medicines. Denies any other health problems. Review of Systems: Review of Systems Constitutional: Negative for chills, fever and unexpected weight change. HENT: Positive for rhinorrhea and sore throat. Negative for sinus pressure, sinus pain and trouble swallowing. Eyes: Negative for pain and redness. Respiratory: Positive for cough. Negative for shortness of breath and wheezing. Cardiovascular: Negative for chest pain, palpitations and leg swelling. Gastrointestinal: Negative for abdominal pain. Genitourinary: Negative for flank pain. Musculoskeletal: Negative for back pain and neck pain. Skin: Negative for rash. Neurological: Negative for dizziness and headaches. All other systems reviewed and are negative. Past Medical History: Past Medical History: Diagnosis Date Asthma Past Surgical History: Past Surgical History: Procedure Laterality Date APPENDECTOMY HAND SURGERY Right PENILE SURGERY Allergies: Allergies Allergen Reactions Amoxicillin Swelling Penicillins Swelling Medications: Discharge Medication List as of 08/09/2022 1:53 AM START taking these medications Details azithromycin 500 MG tablet Take 1 tablet by mouth daily for 4 days. Print Disp-4 tablet, R-0 fluticasone 50 MCG/ACT Suspension nasal spray 2 sprays per nostril BID for 7 days. Print Disp-16 g, R-0 tlagudoxehrkbcc-gwgainqcutglpwc-lts tromethorphan (Bromfed DM) 30-2-10 MG/5ML Syrup Take 5 mL by mouth every 6 hours as needed for Cold Symptoms, Cough, Congestion or Rhinitis. Print Disp-118 mL, R-0 STOP taking these medications diclofenac sodium [address] Comments: Reason for Stopping: tizanidine 2 MG tablet Comments: Reason for Stopping: traMADol 50 MG tablet Comments: Reason for Stopping: Family History: History reviewed. No pertinent family history. Social History: Social History Socioeconomic History Marital status: Single Spouse name: Not on file Number of children: Not on file Years of education: Not on file Highest education level: Not on file Occupational History Not on file Tobacco Use Smoking status: Every Day Packs/day: 0.50 Types: Cigarettes Smokeless tobacco: Never Substance and Sexual Activity Alcohol use: Not Currently Drug use: Never Sexual activity: Not on file Other Topics Concern Not on file Social History Narrative Not on file Social Determinants of Health Financial Resource Strain: Not on file Food Insecurity: Not on file Transportation Needs: Not on file Physical Activity: Not on file Stress: Not on file Social Connections: Not on file Intimate Partner Violence: Not on file Housing Stability: Not on file Physical Exam: Physical Exam Vitals and nursing note reviewed. Constitutional: General: He is not in acute distress. Appearance: Normal appearance. He is normal weight. He is not ill-appearing or toxic-appearing. HENT: Head: Normocephalic and atraumatic. Right Ear: Tympanic membrane normal. Nose: Congestion present. Mouth/Throat: Mouth: Mucous membranes are moist. Pharynx: Oropharynx is clear. No oropharyngeal exudate or posterior oropharyngeal erythema. Eyes: General: Right eye: No discharge. Left eye: No discharge. Extraocular Movements: Extraocular movements intact. Conjunctiva/sclera: Conjunctivae normal. Pupils: Pupils are equal, round, and reactive to light. Cardiovascular: Rate and Rhythm: Normal rate and regular rhythm. Pulses: Normal pulses. Heart sounds: Normal heart sounds. No murmur heard. No gallop. Pulmonary: Effort: Pulmonary effort is normal. No respiratory distress. Breath sounds: Normal breath sounds. No wheezing, rhonchi or rales. Abdominal: General: Abdomen is flat. Bowel sounds are normal. Palpations: Abdomen is soft. Tenderness: There is no abdominal tenderness. There is no guarding or rebound. Musculoskeletal: General: No swelling or tenderness. Normal range of motion. Cervical back: Normal range of motion and neck supple. No rigidity or tenderness. Right lower leg: No edema. Left lower leg: No edema. Skin: General: Skin is warm and dry. Capillary Refill: Capillary refill takes less than 2 seconds. Findings: No bruising, erythema or rash. Neurological: General: No focal deficit present. Mental Status: He is alert and oriented to person, place, and time. Vital Signs During ED Visit Patient Vitals for the past 24 hrs: BP Temp Temp src Pulse Resp SpO2 Height 08/09/22 0130 -- -- -- -- -- -- 1.854 m (6' 1 ) 08/09/22 0129 133/74 98.5 F (36.9 C) Tympanic 78 19 98 % -- Orders/Results: Orders Placed This Encounter guaiFENesin-dextromethorphan (ROBITUSSIN DM) 100-10 MG/5ML syrup 10 mL Azithromycin (ZITHROMAX) tablet 500 mg azithromycin 500 MG tablet xkvgyjzaslcytnp-icywtmkpzilfnpe-lkv tromethorphan (Bromfed DM) 30-2-10 MG/5ML Syrup fluticasone 50 MCG/ACT Suspension nasal spray Radiographic Imaging No orders to display Procedures: Procedures Moderate Sedation Procedure: No ED Summary/MDM DDx; upper respiratory infection, I will syndrome, flu, cold, pharyngitis, sinusitis, bronchitis, pneumonia. 26-year-old male presents to ER with complaint of cough congestion for about a week. Coughing up clear yellow phlegm. Runny nose and congestion. Vital signs are stable. He is afebrile. Pulse ox is 98% on room air.. Patient states he is a smoker. Physical exam was unremarkable. Lungs are clear. Moderate nasal congestion with some posterior drainage. Throat is slightly erythematous without exudate. Lungs are clear to auscultation bilaterally with some mild rails that clears with cough. He is not in any respiratory distress. Will treat for upper respiratory infection and bronchitis. Patient given a dose of Zithromax while in the ER. Also had Robitussin-DM. He will be on Zithromax once a day for next 4 days. Flonase nasal spray to spray bilaterally twice a day for 7 days. Bromfed-DM cough syrup 4 times a day as needed for cough congestion runny nose. Patient placed to quit smoking. Increase fluids. Drink plenty of water. Stay hydrated. Tylenol, ibuprofen as needed for pain fever and body aches. Recheck with his primary care provider in 2-4 days as needed. Return if worse cough, congestion, shortness of breath, wheezing, weakness/lethargy, poor oral intake, fever. Discharged home in good condition with his girlfriend. He voices understanding of his discharge instructions. Clinical Impression: 1. Upper respiratory tract infection, unspecified type 2. Bronchitis No follow-ups on file. Discharge Medication List as of 08/09/2022 1:53 AM START taking these medications Details azithromycin 500 MG tablet Take 1 tablet by mouth daily for 4 days. Print Disp-4 tablet, R-0 fluticasone 50 MCG/ACT Suspension nasal spray 2 sprays per nostril BID for 7 days. Print Disp-16 g, R-0 jjnuhgxodaodqeb-tpljihncfcbotfw-qtg tromethorphan (Bromfed DM) 30-2-10 MG/5ML Syrup Take 5 mL by mouth every 6 hours as needed for Cold Symptoms, Cough, Congestion or Rhinitis. Print Disp-118 mL, R-0 Discharge Medication List as of 08/09/2022 1:53 AM STOP taking these medications diclofenac sodium 50 MG Tab Comments: Reason for Stopping: tizanidine 2 MG tablet Comments: Reason for Stopping: traMADol 50 MG tablet Comments: Reason for Stopping: An After Visit Summary was printed and given to the patient with above information. . Lori Concepcion DO 08/09/22211 documented in this encounter [facility] 02-18-2022 Emergency department Note Emergency Department Report [facility] EMERGENCY DEPARTMENT Service Date:.02/19/22 PCP: No primary care provider on file. Chief Complaint: Chief Complaint Patient presents with Jaw Pain Left jaw. States accidentally cracked jaw while trying to crack neck and now painful, hard to chew and can't close mouth x1 week. COURTNEY Herrera is a 26 y.o. male presents to the ED today due to Left jaw pain. Patient state he was trying to crack his neck and right-sided shoulder. Patient states that he felt a pop and difficulty closing his jaw. Patient denies difficulty swallowing denies neck pain. Patient denies fever or chills. Patient denies cough. Review of Systems: Review of Systems All other systems reviewed and are negative. Past Medical History: Past Medical History: Diagnosis Date Asthma Past Surgical History: Past Surgical History: Procedure Laterality Date APPENDECTOMY HAND SURGERY Right PENILE SURGERY Allergies: Allergies Allergen Reactions Amoxicillin Swelling Penicillins Swelling Medications: Discharge Medication List as of 02/18/2022 10:16 PM START taking these medications Details ibuprofen 600 MG tablet Take 1 tablet by mouth every 6 hours as needed for Mild Pain. Normal Disp-20 tablet, R-0 CONTINUE these medications which have NOT CHANGED Details albuterol 108 (90 Base) MCG/ACT Aero Soln inhaler Inhale 2 puffs every 4 hours as needed for Wheezing. Normal Disp-1 Inhaler,R-0 methylPREDNIsolone 4 MG Tab Therapy Pack tablet Take 6 tablets by mouth on day 1, 5 tabs on day 2, 4 tabs on day 3, 3 tabs on day 4, 2 tabs on day 5, 1 tab on day 6, then stop. Normal Disp-21 tablet,R-0 ymwaestn-uioutntmq-sdgtlsjkfzhwqs 3.5-64044-4 Solution otic solution 4 drops by Otic route 4 times daily. Print Disp-10 mL, R-0 sdsfnklqubcxgkc-uaqbxykfyygoapl-mxt tromethorphan (Bromfed DM) 30-2-10 MG/5ML Syrup Take 1/2 teaspoon PO every 6 hours as needed Normal Disp-100 mL,R-0 Family History: History reviewed. No pertinent family history. Social History: Social History Socioeconomic History Marital status: Single Spouse name: Not on file Number of children: Not on file Years of education: Not on file Highest education level: Not on file Occupational History Not on file Tobacco Use Smoking status: Current Every Day Smoker Packs/day: 0.50 Types: Cigarettes Smokeless tobacco: Never Used Substance and Sexual Activity Alcohol use: Not Currently Drug use: Never Sexual activity: Not on file Other Topics Concern Not on file Social History Narrative Not on file Social Determinants of Health Financial Resource Strain: Not on file Food Insecurity: Not on file Transportation Needs: Not on file Physical Activity: Not on file Stress: Not on file Social Connections: Not on file Intimate Partner Violence: Not on file Housing Stability: Not on file Physical Exam: Physical Exam Constitutional: Appearance: Normal appearance. HENT: Head: Normocephalic and atraumatic. Right Ear: Tympanic membrane, ear canal and external ear normal. Left Ear: Tympanic membrane, ear canal and external ear normal. Nose: Nose normal. Mouth/Throat: Mouth: Mucous membranes are moist. Pharynx: Oropharynx is clear. Eyes: Pupils: Pupils are equal, round, and reactive to light. Cardiovascular: Rate and Rhythm: Normal rate and regular rhythm. Heart sounds: Normal heart sounds. Pulmonary: Effort: Pulmonary effort is normal. Breath sounds: Normal breath sounds. Abdominal: General: Bowel sounds are normal. There is no distension. Palpations: Abdomen is soft. Tenderness: There is no abdominal tenderness. Musculoskeletal: General: Normal range of motion. Cervical back: Normal range of motion and neck supple. Comments: Left TMJ Skin: General: Skin is warm and dry. Capillary Refill: Capillary refill takes less than 2 seconds. Findings: No erythema. Neurological: General: No focal deficit present. Mental Status: He is alert and oriented to person, place, and time. Mental status is at baseline. Psychiatric: Mood and Affect: Mood normal. Behavior: Behavior normal. Vital Signs During ED Visit Patient Vitals for the past 24 hrs: BP Temp Temp src Pulse Resp SpO2 Height Weight 02/18/222228 125/67 -- -- 59 16 98 % -- -- 02/18/221938 -- -- -- -- -- -- 1.829 m (6') 90.7 kg (200 lb) 02/18/221937 129/67 98.7 F (37.1 C) Oral 85 18 98 % -- -- Differential Diagnosis: Contusion, sprain Orders/Results: Orders Placed This Encounter CT FACIAL WITHOUT CONTRAST AMB REFERRAL TO FAMILY PRACTICE ketorolac (TORADOL) injection 15 mg ibuprofen 600 MG tablet Results for orders placed or performed during the hospital encounter of 01/13/21 CULTURE WOUND Specimen: FOOT; Skin Result Value Ref Range SPECIMEN DESCRIPTION FOOT GRAM STAIN NO RESULT-CULT STREPTOCOCCUS PYOGENES SERO GROUP A REPORT STATUS 01/16/2021 ORGANISM IDENTIFIED STREPTOCOCCUS PYOGENES SERO GROUP A HEAVY GROWTH ORGANISM IDENTIFIED METHICILLIN RESISTANT STAPH AUREUS Susceptibility Methicillin resistant staph aureus - EVERARDO (UG/ML/INTERP)* Oxacillin Resistant Clindamycin Sensitive Erythromycin Resistant Tetracycline Sensitive Vancomycin Sensitive Rifampin Sensitive PENICILLIN G Resistant Gentamicin Sensitive Levofloxacin Sensitive Inducible Clindamycin Resistance Susceptible Trimethoprim/Sulfamethoxazol Sensitive * METHICILLIN RESISTANT STAPH AUREUS Streptococcus pyogenes sero group a heavy growth - EVERARDO (UG/ML/INTERP)* Ampicillin Sensitive Clindamycin Resistant Erythromycin Resistant PENICILLIN G Sensitive Tetracycline Resistant Vancomycin Sensitive Levofloxacin Sensitive Cefotaxime Sensitive Ceftriaxone Sensitive Inducible Clindamycin Resistance Resistant * STREPTOCOCCUS PYOGENES SERO GROUP A HEAVY GROWTH Radiographic Imaging CT FACIAL WITHOUT CONTRAST Final Result IMPRESSION: Unremarkable CT of the maxillofacial structures. The right and left TMJs appear normal. Moderate Sedation Procedure: No Procedures: Procedures ED Summary: Imaging is unremarkable. Patient be discharged home in stable condition with follow-up on outpatient patient. Patient be given analgesic medication. The patient has changes symptoms are worse symptoms, any other issues he can return for reevaluation otherwise a follow-up on outpatient basis Clinical Impression: 1. Jaw pain No follow-ups on file. Discharge Medication List as of 02/18/2022 10:16 PM START taking these medications Details ibuprofen 600 MG tablet Take 1 tablet by mouth every 6 hours as needed for Mild Pain. Normal Disp-20 tablet, R-0 Discharge Medication List as of 02/18/2022 10:16 PM An After Visit Summary was printed and given to the patient with above information. . . Wayne Flores MD 02/19/22 0429 documented in this encounter [facility] 02-18-2022 Physician Emergen cy department Note Emergency Department Report [facility] EMERGENCY DEPARTMENT Service Date:.02/19/22 PCP: No primary care provider on file. Chief Complaint: Chief Complaint Patient presents with Jaw Pain Left jaw. States accidentally cracked jaw while trying to crack neck and now painful, hard to chew and can't close mouth x1 week. HPI Carlyle Herrera is a 26 y.o. male presents to the ED today due to Left jaw pain. Patient state he was trying to crack his neck and right-sided shoulder. Patient states that he felt a pop and difficulty closing his jaw. Patient denies difficulty swallowing denies neck pain. Patient denies fever or chills. Patient denies cough. Review of Systems: Review of Systems All other systems reviewed and are negative. Past Medical History: Past Medical History: Diagnosis Date Asthma Past Surgical History: Past Surgical History: Procedure Laterality Date APPENDECTOMY HAND SURGERY Right PENILE SURGERY Allergies: Allergies Allergen Reactions Amoxicillin Swelling Penicillins Swelling Medications: Discharge Medication List as of 02/18/2022 10:16 PM START taking these medications Details ibuprofen 600 MG tablet Take 1 tablet by mouth every 6 hours as needed for Mild Pain. Normal Disp-20 tablet, R-0 CONTINUE these medications which have NOT CHANGED Details albuterol 108 (90 Base) MCG/ACT Aero Soln inhaler Inhale 2 puffs every 4 hours as needed for Wheezing. Normal Disp-1 Inhaler,R-0 methylPREDNIsolone 4 MG Tab Therapy Pack tablet Take 6 tablets by mouth on day 1, 5 tabs on day 2, 4 tabs on day 3, 3 tabs on day 4, 2 tabs on day 5, 1 tab on day 6, then stop. Normal Disp-21 tablet,R-0 qsjoplbn-fgbulrotu-myjyfiwxdwzcse 3.5-82439-1 Solution otic solution 4 drops by Otic route 4 times daily. Print Disp-10 mL, R-0 mbdhiqcktyolngw-swtejsafzoqyqgm-gcx tromethorphan (Bromfed DM) 30-2-10 MG/5ML Syrup Take 1/2 teaspoon PO every 6 hours as needed Normal Disp-100 mL,R-0 Family History: History reviewed. No pertinent family history. Social History: Social History Socioeconomic History Marital status: Single Spouse name: Not on file Number of children: Not on file Years of education: Not on file Highest education level: Not on file Occupational History Not on file Tobacco Use Smoking status: Current Every Day Smoker Packs/day: 0.50 Types: Cigarettes Smokeless tobacco: Never Used Substance and Sexual Activity Alcohol use: Not Currently Drug use: Never Sexual activity: Not on file Other Topics Concern Not on file Social History Narrative Not on file Social Determinants of Health Financial Resource Strain: Not on file Food Insecurity: Not on file Transportation Needs: Not on file Physical Activity: Not on file Stress: Not on file Social Connections: Not on file Intimate Partner Violence: Not on file Housing Stability: Not on file Physical Exam: Physical Exam Constitutional: Appearance: Normal appearance. HENT: Head: Normocephalic and atraumatic. Right Ear: Tympanic membrane, ear canal and external ear normal. Left Ear: Tympanic membrane, ear canal and external ear normal. Nose: Nose normal. Mouth/Throat: Mouth: Mucous membranes are moist. Pharynx: Oropharynx is clear. Eyes: Pupils: Pupils are equal, round, and reactive to light. Cardiovascular: Rate and Rhythm: Normal rate and regular rhythm. Heart sounds: Normal heart sounds. Pulmonary: Effort: Pulmonary effort is normal. Breath sounds: Normal breath sounds. Abdominal: General: Bowel sounds are normal. There is no distension. Palpations: Abdomen is soft. Tenderness: There is no abdominal tenderness. Musculoskeletal: General: Normal range of motion. Cervical back: Normal range of motion and neck supple. Comments: Left TMJ Skin: General: Skin is warm and dry. Capillary Refill: Capillary refill takes less than 2 seconds. Findings: No erythema. Neurological: General: No focal deficit present. Mental Status: He is alert and oriented to person, place, and time. Mental status is at baseline. Psychiatric: Mood and Affect: Mood normal. Behavior: Behavior normal. Vital Signs During ED Visit Patient Vitals for the past 24 hrs: BP Temp Temp src Pulse Resp SpO2 Height Weight 02/18/22 2229 125/67 -- -- 59 16 98 % -- -- 02/18/221938 -- -- -- -- -- -- 1.829 m (6') 90.7 kg (200 lb) 02/18/221937 129/67 98.7 F (37.1 C) Oral 85 18 98 % -- -- Differential Diagnosis: Contusion, sprain Orders/Results: Orders Placed This Encounter CT FACIAL WITHOUT CONTRAST AMB REFERRAL TO FAMILY PRACTICE ketorolac (TORADOL) injection 15 mg ibuprofen 600 MG tablet Results for orders placed or performed during the hospital encounter of 01/13/21 CULTURE WOUND Specimen: FOOT; Skin Result Value Ref Range SPECIMEN DESCRIPTION FOOT GRAM STAIN NO RESULT-CULT STREPTOCOCCUS PYOGENES SERO GROUP A REPORT STATUS 01/16/2021 ORGANISM IDENTIFIED STREPTOCOCCUS PYOGENES SERO GROUP A HEAVY GROWTH ORGANISM IDENTIFIED METHICILLIN RESISTANT STAPH AUREUS Susceptibility Methicillin resistant staph aureus - EVERARDO (UG/ML/INTERP)* Oxacillin Resistant Clindamycin Sensitive Erythromycin Resistant Tetracycline Sensitive Vancomycin Sensitive Rifampin Sensitive PENICILLIN G Resistant Gentamicin Sensitive Levofloxacin Sensitive Inducible Clindamycin Resistance Susceptible Trimethoprim/Sulfamethoxazol Sensitive * METHICILLIN RESISTANT STAPH AUREUS Streptococcus pyogenes sero group a heavy growth - EVERARDO (UG/ML/INTERP)* Ampicillin Sensitive Clindamycin Resistant Erythromycin Resistant PENICILLIN G Sensitive Tetracycline Resistant Vancomycin Sensitive Levofloxacin Sensitive Cefotaxime Sensitive Ceftriaxone Sensitive Inducible Clindamycin Resistance Resistant * STREPTOCOCCUS PYOGENES SERO GROUP A HEAVY GROWTH Radiographic Imaging CT FACIAL WITHOUT CONTRAST Final Result IMPRESSION: Unremarkable CT of the maxillofacial structures. The right and left TMJs appear normal. Moderate Sedation Procedure: No Procedures: Procedures ED Summary: Imaging is unremarkable. Patient be discharged home in stable condition with follow-up on outpatient patient. Patient be given analgesic medication. The patient has changes symptoms are worse symptoms, any other issues he can return for reevaluation otherwise a follow-up on outpatient basis Clinical Impression: 1. Jaw pain No follow-ups on file. Discharge Medication List as of 02/18/2022 10:16 PM START taking these medications Details ibuprofen 600 MG tablet Take 1 tablet by mouth every 6 hours as needed for Mild Pain. Normal Disp-20 tablet, R-0 Discharge Medication List as of 02/18/2022 10:16 PM An After Visit Summary was printed and given to the patient with above information. . . Wayne Flores MD 02/19/22 0421 [facility] 06-04-2021 Instructions Hubert Darnell DO - 06/04/2021 2:06 PM EDT Assessment Diagnoses and all orders for this visit: Acute infective otitis externa, left Specimen take for culture and sensitivity. Active infection is noted on examination today. I placed the patient on both cortisporin and clindamycin 150mg. I have instructed them to call or follow up as scheduled. Start cortisporin Suspension, 0.3-0.1 %, 4 drops into affected ear, Otic, Twice a day, 14 days, 1, Refills 1 Cindamycin 150 one by mouth every 8 hours for 10 days (check allergy) Therapeutically equivalent generic alternative is not available or appropriate. Hearing loss, unspecified hearing loss type, unspecified laterality documented in this encounter [facility] 06-04-2021 History of Presen t illness Narrative Images from the original note were not included. Subjective Patient ID: Carlyle Herrera is a 25 y.o. male. 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 Patient reports he woke up with red swollen ear, went to . Ear drops provided, patient reports the drops burned his ears. Timing: no recent audiograms. cortisporin drops were prescribed. Used cortisporin ear drops for two days then stopped on his own. The following portions of the patient's history were reviewed and updated as appropriate: allergies, current medications, past family history, past medical history, past social history, past surgical history and problem list. Review of Systems Constitutional: Negative for chills and diaphoresis. HENT: Positive for ear discharge and hearing loss. Negative for ear pain. Eyes: Negative for discharge and redness. Respiratory: Negative for apnea and cough. Cardiovascular: Negative for chest pain and palpitations. Musculoskeletal: Negative for neck pain and neck stiffness. Skin: Negative for color change and pallor. Allergic/Immunologic: Negative for immunocompromised state. Neurological: Negative for facial asymmetry and numbness. Hematological: Does not bruise/bleed easily. Psychiatric/Behavioral: Negative for agitation and confusion. Objective Physical Exam Vitals and nursing note reviewed. Constitutional: Appearance: Normal appearance. He is well-developed. Comments: The patient is well-developed and well-nourished without obvious deformity. HENT: Head: Normocephalic and atraumatic. Right Ear: Tympanic membrane, ear canal and external ear normal. Left Ear: Tympanic membrane, ear canal and external ear normal. Drainage and swelling present. Ears: Nose: Nose normal. Mouth/Throat: Mouth: Mucous membranes are moist. Eyes: General: Lids are normal. Conjunctiva/sclera: Conjunctivae normal. Left eye: No chemosis. Pupils: Pupils are equal, round, and reactive to light. Neck: Thyroid: No thyromegaly. Trachea: No tracheal deviation. Cardiovascular: Rate and Rhythm: Normal rate and regular rhythm. Heart sounds: Normal heart sounds. Pulmonary: Effort: Pulmonary effort is normal. Breath sounds: Normal breath sounds. No stridor. Musculoskeletal: Cervical back: Normal range of motion and neck supple. Lymphadenopathy: Head: Right side of head: No submental, submandibular, preauricular, posterior auricular or occipital adenopathy. Left side of head: No submental, submandibular, preauricular, posterior auricular or occipital adenopathy. Cervical: No cervical adenopathy. Right cervical: No superficial cervical adenopathy. Left cervical: No superficial or deep cervical adenopathy. Skin: General: Skin is warm and dry. Neurological: Mental Status: He is alert and oriented to person, place, and time. Coordination: Coordination normal. Gait: Gait normal. Comments: III, IV, : EOM normal V: 1,2,3: normal sensation VII: Normal strength in all divisions. IX, X: Normal voice, palatal elevation and sensation XI: Shoulder strength normal XII: Tongue mobility normal Psychiatric: Mood and Affect: Mood is not anxious. Affect is not angry. Speech: Speech is not delayed or slurred. Behavior: Behavior normal. Behavior is not agitated or aggressive. Behavior is cooperative. Assessment/Plan: Diagnoses and all orders for this visit: Acute infective otitis externa, left Specimen take for culture and sensitivity. Active infection is noted on examination today. I placed the patient on both cortisporin and clindamycin 150mg. I have instructed them to call or follow up as scheduled. Start cortisporin Suspension, 0.3-0.1 %, 4 drops into affected ear, Otic, Twice a day, 14 days, 1, Refills 1 Cindamycin 150 one by mouth every 8 hours for 10 days (check allergy) Therapeutically equivalent generic alternative is not available or appropriate. I spent at least 48 minutes prepping the chart, charting, interviewing and interacting with patient, and post visit charting. Hearing loss, unspecified hearing loss type, unspecified laterality documented in this encounter [facility] 02-14-2021 Emergency department Note Patient has verbalized understanding of follow up, home care instructions, and prescriptions. Has no further questions or concerns. No signs of distress or discomfort noted upon departure. Presents to the ED c/o open sores and blisters on bilateral feet x 2 days. ED PROVIDER NOTE [facility] EMERGENCY DEPARTMENT NAME: Carlyle Herrera AGE: 25 y.o. : 1995 VISIT DATE: 02/14/2021 CSN: [id number] PCP: No primary care provider on file. Chief Complaint Patient presents with Rash 25-year-old male presents to the emergency department for redness and discomfort plantar aspect bilateral feet right greater than left. States that approximately 1 month ago he was treated for cellulitis with Bactrim, though symptoms resolved but have now returned. No fever. Denies history of MRSA. Takes no medications on a regular basis. He also states that he is noted a pruritic type rash in the occipital scalp. No new soaps medications or detergents. No complaints of headache. No other associated symptoms or complaint History reviewed. No pertinent past medical history. Past Surgical History: Procedure Laterality Date ORTHOPEDIC SURGERY right hand w/pins History reviewed. No pertinent family history. Social History Socioeconomic History Marital status: Not on file Spouse name: Not on file Number of children: Not on file Years of education: Not on file Highest education level: Not on file Occupational History Not on file Tobacco Use Smoking status: Current Every Day Smoker Types: Cigarettes Smokeless tobacco: Never Used Tobacco comment: 5 per day Vaping Use Vaping Use: Never used Substance and Sexual Activity Alcohol use: Never Drug use: Never Sexual activity: Not on file Other Topics Concern Not on file Social History Narrative Not on file Social Determinants of Health Financial Resource Strain: Difficulty of Paying Living Expenses: Food Insecurity: Worried About Running Out of Food in the Last Year: Ran Out of Food in the Last Year: Transportation Needs: Lack of Transportation (Medical): Lack of Transportation (Non-Medical): Physical Activity: Days of Exercise per Week: Minutes of Exercise per Session: Stress: Feeling of Stress : Social Connections: Frequency of Communication with Friends and Family: Frequency of Social Gatherings with Friends and Family: Attends [employer] Services: Active Member of Clubs or Organizations: Attends Club or Organization Meetings: Marital Status: No current outpatient medications on file prior to encounter. Allergies Allergen Reactions Penicillins Anaphylaxis Review of Systems Skin: As per HPI All other systems reviewed and are negative. Patient Vitals for the past 24 hrs: BP Temp Temp src Pulse Resp SpO2 Height Weight 02/14/21 0855 (!) 107/92 98 F (36.7 C) Oral 80 14 97 % 6' 99.8 kg (220 lb) Physical Exam Vitals and nursing note reviewed. Constitutional: General: He is not in acute distress. Appearance: Normal appearance. He is not ill-appearing, toxic-appearing or diaphoretic. HENT: Head: Normocephalic and atraumatic. Right Ear: Tympanic membrane, ear canal and external ear normal. Left Ear: Tympanic membrane, ear canal and external ear normal. Mouth/Throat: Mouth: Mucous membranes are moist. Pharynx: Oropharynx is clear. No oropharyngeal exudate or posterior oropharyngeal erythema. Eyes: Conjunctiva/sclera: Conjunctivae normal. Cardiovascular: Rate and Rhythm: Normal rate and regular rhythm. Heart sounds: Normal heart sounds. Pulmonary: Effort: Pulmonary effort is normal. Breath sounds: Normal breath sounds. Musculoskeletal: General: Normal range of motion. Cervical back: Normal range of motion and neck supple. Right lower leg: No edema. Left lower leg: No edema. Comments: No asymmetry or palpable cord. No clinical evidence of DVT Lymphadenopathy: Cervical: No cervical adenopathy. Skin: Comments: Patient has areas of folliculitis on the occipital scalp region. No abscess. No vesicles. No secondary cellulitis. Plantar aspect bilateral feet patient has areas of excoriation in the areas of the MTP joints. No abscess. No necrosis. No crepitus. There are some minimal localized erythema in these areas. No foreign body. Skin exam is otherwise normal. No petechiae or purpura Neurological: Mental Status: He is alert and oriented to person, place, and time. Psychiatric: Mood and Affect: Mood normal. Behavior: Behavior normal. Laboratory & Radiographic Imaging (if done): Results for orders placed or performed during the hospital encounter of 02/14/21 POC Glucose Result Value Ref Range Glucose 90 65 - 99 mg/dL No orders to display Procedures MDM The patient has been informed that they may have pre-hypertension or hypertension based on a blood pressure reading in the Emergency Department. I recommend that the patient call the primary care provider listed on their discharge instructions or a physician of their choice as soon as possible to arrange follow-up in the next 4 weeks for further evaluation of possible pre-hypertension or hypertension. . Clinical Impression: 1. Cellulitis of other specified site 2. Folliculitis ED Disposition ED Disposition Condition Comment Discharge Good Carlyle Smart discharged to home/self care in stable condition. Follow-up Information 1. Primary care provider of your choosing from provided list. Contact information for after-discharge care Follow-up information has not been specified. New Prescriptions clindamycin (CLEOCIN) 150 MG capsule Take 3 (three) capsules (450 mg total) by mouth 3 (three) times a day for 7 days . Georgina Noonan DO 02/14/21 0918 documented in this encounter [facility] 01-13-2021 Hospital Discharg e Orlando Cazares DO - 01/13/2021 Return to the emergency room if high fever occurs or if there is a new or worsening symptoms. Follow-up with [facility] referral line if no improvement in 2-3 days. The following attachments cannot be sent through Care Everywhere.Cellulitis (Tongan)documented in this encounter [facility] 01-13-2021 Emergency department Note eMERGENCY dEPARTMENT report [facility] DATE: 01/13/21 PCP: No primary care provider on file. CHIEF COMPLAINT: Chief Complaint Patient presents with Foot Pain Pt reports has been having issues with blisters on feet for 3-4 days s/p allowing friend to use his shower. Reports was itching at first but now is just blistered and pus drainage. Easy resps and no acute distress HPI: Carlyle Herrera is a 25 y.o. male who presents with pain and purulent drainage from the toes of both feet. The patient reports that he had a blister on his left foot that he lanced it himself about 6 days ago. He then began to develop spreading redness and blistering to the toes of the left foot discomfort breast onto the right foot in between the toes as well. The patient has used multiple home treatments on his feet including soaps, peroxide, and a biotic ointment and antifungal ointments. He reports that the treatments make things worse and he has increased skin breakdown and multiple small blisters. There is been some drainage of pus. He has had no fever or chills. He has no redness or pain outside the area of the toes of both feet to about the MP joints. REVIEW OF SYSTEMS: Constitutional: Negative for fever, chills. Skin: Negative for rash, itching Musculoskeletal: See history of present illness PAST MEDICAL HISTORY: Past Medical History: Diagnosis Date Asthma SURGICAL HISTORY: Past Surgical History: Procedure Laterality Date APPENDECTOMY PENILE SURGERY CURRENT MEDICATIONS: Patient's Medications New Prescriptions SULFAMETHOXAZOLE-TRIMETHOPRIM 800-160 MG PER TABLET Take 1 tablet by mouth 2 times daily for 10 days. Previous Medications ALBUTEROL 108 (90 BASE) MCG/ACT AERO SOLN INHALER Inhale 2 puffs every 4 hours as needed for Wheezing. METHYLPREDNISOLONE 4 MG TAB THERAPY PACK TABLET Take 6 tablets by mouth on day 1, 5 tabs on day 2, 4 tabs on day 3, 3 tabs on day 4, 2 tabs on day 5, 1 tab on day 6, then stop. [id number] TROMETHORPHAN (BROMFED DM) 30-2-10 MG/5ML SYRUP Take 1/2 teaspoon PO every 6 hours as needed Modified Medications No medications on file Discontinued Medications No medications on file ALLERGIES: Allergies Allergen Reactions Amoxicillin Swelling Penicillins Swelling FAMILY HISTORY: History reviewed. No pertinent family history. SOCIAL HISTORY: Social History Socioeconomic History Marital status: Single Spouse name: Not on file Number of children: Not on file Years of education: Not on file Highest education level: Not on file Occupational History Not on file Tobacco Use Smoking status: Current Every Day Smoker Packs/day: 0.50 Types: Cigarettes Smokeless tobacco: Never Used Substance and Sexual Activity Alcohol use: Yes Drug use: Never Sexual activity: Not on file Other Topics Concern Not on file Social History Narrative Not on file Social Determinants of Health Financial Resource Strain: Difficulty of Paying Living Expenses: Food Insecurity: Worried About Running Out of Food in the Last Year: Ran Out of Food in the Last Year: Transportation Needs: Lack of Transportation (Medical): Lack of Transportation (Non-Medical): Physical Activity: Days of Exercise per Week: Minutes of Exercise per Session: Stress: Feeling of Stress : Social Connections: Frequency of Communication with Friends and Family: Frequency of Social Gatherings with Friends and Family: Attends [employer] Services: Active Member of Clubs or Organizations: Attends Club or Organization Meetings: Marital Status: Intimate Partner Violence: Fear of Current or Ex-Partner: Emotionally Abused: Physically Abused: Sexually Abused: PHYSICAL EXAM: Constitutional: Oriented and well-developed, well-nourished, and in no distress. Non-toxic appearance. HEENT: Normocephalic and atraumatic Musculoskeletal: The patient has several superficial-appearing blisters on his feet. These are found on the plantar surface in the area of his toes. There is no redness or swelling. There is no lymphangitic streaking. There is no pain proximal to the MP joints on either foot. The skin surrounding the tenderness appeared cracked and fissured with a whitish color that is more typical scalded or injured skin. Neurological: Alert and oriented. No weakness, tremor, or facial asymmetry. Normal speech. Normal muscle tone. Skin: Skin is warm and dry. No rash noted. No cyanosis or erythema. Psychiatric: Mood normal. Exhibits ordered thought content. Affect appears normal. VITAL SIGNS DURING ED VISIT: Patient Vitals for the past 24 hrs: BP Temp Temp src Pulse Resp SpO2 Height 01/13/21 1008 1.829 m (6') 01/13/21 1007 (!) 136/94 97.4 F (36.3 C) Temporal 75 16 99 % ED COURSE & MEDICAL DECISION MAKING: The Skin of the patient's feet has the appearance of an external injury by possibly chemical means and this may be secondary to the patient's treatment. There are areas which appear to have superficial infection. There is no air in the tissues. Plan will be to treat with Bactrim DS and the patient is instructed to use no more topical treatments to his feet. The patient is to return to the ED if he has any new or worsening symptoms. He is to follow-up with her physician if he is not seeing improvement within 2-3 days. ORDERS/RESULTS: Orders Placed This Encounter CULTURE WOUND XR FOOT LEFT 3 VIEWS sulfamethoxazole-trimethoprim 800-160 MG per tablet sulfamethoxazole-trimethoprim (BACTRIM DS) 800-160 MG per tablet 2 tablet IMAGING: XR FOOT LEFT 3 VIEWS Final Result IMPRESSION: No acute bony abnormality. No soft tissue gas. CLINICAL IMPRESSION: 1. Cellulitis of both feet DISPOSITION: Discharged to home. Plan as above No follow-ups on file. New Prescriptions SULFAMETHOXAZOLE-TRIMETHOPRIM 800-160 MG PER TABLET Take 1 tablet by mouth 2 times daily for 10 days. An after visit summary was printed and given to the patient with the above information. Portions of this chart were created using [employer] electronic dictation. Please excuse any typographical or grammatical errors contained herein. Orlando Almonte DO 01/13/21 1213 Ray@ bedside documented in this encounter [facility] Diagnosis Cellulitis of other specified site- Primary Folliculitis Other specified disease of hair and hair follicles [facility] Diagnosis Acute infective otitis externa, left- Primary Hearing loss, unspecified hearing loss type, unspecified laterality [facility] Diagnosis Jaw [facility]- Primary [facility] Diagnosis Upper respiratory tract infection, unspecified type- Primary Bronchitis Bronchitis, not specified as acute or chronic [facility]* Attachments The following attachments cannot be sent through Care Everywhere. * Cellulitis (Tongan) [facility] (narrative)* Consultation (Routine) - New Request Specialty Diagnoses / Procedures Referred By Baylee hartmann Referred To Contact Family Medicine Diagnoses Jaw pain Wayne Flores MD [address] [place] [address] Referral ID Status Reason Start Date Expiration Date V isits Requested Visits Authorized [id number] New Request 02/18/2022 03/15/2023 1 1 [facility] Summary Purpose Family History No Family History Records FoundNo Family History Records FoundNo Family History Records FoundNo Family History Records FoundNo Family History Records FoundNo Family History Records FoundNo Family History Records FoundNo Family History Records FoundNo Family History Records FoundNo Family History Records Found Advance Directives Documents on File Type Date Recorded 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 Expl anation Advance Directives and Livin g Will 02/14/2021 8:58 AM Reason for Referral Status Reason Specialty Diagnoses / Procedures Referred By Contact Referred To Contact New Request Family Medicine Diagnoses Traumatic hematoma of right hand, initial encounter Exposure to sexually transmitted disease (STD) Je Anglin MD [address] [place] [address] Status Reason Specialty Diagnoses / Procedures Referred By Contact Referred To Contact New Request Family Medicine Diagnoses Paronychia of finger of right hand Leanne Pak, [employer] [address] [place] [address] Status Reason Specialty Diagnoses / Procedures Referred By Contact Referred To Contact New Request Family Medicine Diagnoses Suspected COVID-19 virus infection Cough Fever, unspecified fever cause Gladis Hallman PA-C [address] [place] [address] Status Reason Specialty Diagnoses / Procedures Referred By Contact Referred To Contact Pending Review Urology Diagnoses Allergic rash present on examination Shorty Adames MD [address] [place] [address] Luly Pepper CNP [address] [phone] Discharge Instructions * Attachments The following attachments cannot be sent through Care Everywhere. * Sexually Transmitted Infections (STIs)([facility]) (Tongan) * Contusion: Hand (Tongan) documented in this encounter* Attachments The following attachments cannot be sent through Care Everywhere. * Paronychia (Tongan) documented in this encounter* Attachments The following attachments cannot be sent through Care Everywhere. * Coronavirus (COVID-19) Care Instructions After Testing ([facility]) (Tongan) documented in this encounter* Instructions* Shorty Adames MD - 09/15/2019 Benadryl 50 mg every 6 hours for next 48 hours. Apply bacitracin ointment to the area twice a day. Call Luly Billingsley tomorrow morning and schedule follow-up as soon as possible next week. Return to ER for reevaluation if you develop fever, increased redness, any difficulty urinating, orif you feel worse in any way. * Attachments The following attachments cannot be sent through Care Everywhere. * Allergic Reaction (Tongan) documented in this encounter Assessments Diagnosis Traumatic hematoma of right hand, initial encounter Exposure to sexually transmitted disease (STD) Contact with or exposure to venereal diseases Diagnosis Paronychia of finger of right hand Diagnosis Suspected COVID-19 virus infection- Primary Cough Fever, unspecified fever cause Diagnosis Allergic rash present on examination- Primary Additional Source Comments (unrecognized sect ion and content) No Status Records FoundNo Status Records FoundNo Status Records FoundNo Status Records FoundNo Status Records FoundNo Status Records FoundNo Status Records FoundNo Status Records FoundNo Status Records FoundNo Status Records Found INFORMATION SOURCE (unrecogn ized section and content) DATE CREATED AUTHOR AUTHOR'S ORGANIZ ATION 07/18/2018 [facility] DATE CREATED AUTHOR AUTHOR'S ORGANIZ ATION 05/11/2019 [facility] DATE CREATED AUTHOR AUTHOR'S ORGANIZ ATION 06/21/2019 [facility] DATE CREATED AUTHOR AUTHOR'S ORGANIZ ATION 04/04/2021 [facility] DATE CREATED AUTHOR AUTHOR'S ORGANIZ ATION 06/05/2021 [facility] DATE CREATED AUTHOR AUTHOR[facility]S [facility]IZ ATION [facility] CREATED AUTHOR AUTHOR'S ORGANIZ ATION 02/27/2022 [facility] DATE CREATED AUTHOR AUTHOR'S ORGANIZ ATION 05/13/2022 [facility] DATE CREATED AUTHOR AUTHOR'S ORGANIZ ATION 08/09/2022 [facility] Reason for Visit (unrecogniz ed section and content) Reason Comments Wound Infection Right pinky finger e dematous and red x 1 month after ingrown nail and injury in shop. Reason Comments Sore Throat Chills Fever Shortness of Breath Cough Pt presents with sor e throat, chills, cough and SOB since last night, states he went to work today and on temporal scan had temp of 101.2 Reason Comments Rash red rash around the penis area started last night, painful and itchy. Reason Comments Foot Pain Pt reports has been having issues with blisters on feet for 3-4 days s/p allowing friend to use his shower. Reports was itching at first but now is just blistered and pus drainage. 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 Patient reports he woke up with red swollen ear, went to . Ear drops provided, patient reports the drops burned his ears. Timing: no recent audiograms. cortisporin drops were prescribed. Reason Comments Jaw Pain Left jaw. States acc identally cracked jaw while trying to crack neck and now painful, hard to chew and can't close mouth x1 week. Reason Comments Cough Headache One week of chills, CLEARY and non-productive cough. Pt stated I haven't been able to sleep because of this cough. Denied fever, stated I had a fever the first couple days but none since. Xenia Francisco RN - 05/10/2020 3:15 PM Xenia Pedroza RN - 05/10/2020 2:54 PM Elizabeth Velasquez RN - 05/10/2020 1:26 PM EDT ED Notes (unrecognized secti on and content) Discharge instructions given verbalize understanding. Escort out door 16 per this RN COVID swab sent to lab Pt taken from door 16 to room 17 to negative airflow room, this nurse into room for triage and assessment in full PPE. documented in this encounter Scheduled Active and Recently Administ ered Medications (unrecognized section and content) Scheduled Medication Order 02/16/2022 02/17/2022 02/18/2022 ketorolac (TORADOL) injection 15 mg (COMPLETED) 15 mg, Intramuscular, ONCE, 1 dose, On 02/18/22 at 2230 2227 (Given - Provid er: Concepcion Mehta RN) Scheduled Medication Order 08/07/2022 08/08/2022 08/09/2022 Azithromycin (ZITHROMAX) tablet 500 mg (COMPLETED) 500 mg, Oral, ONCE, 1 dose, On 08/09/22 at 0145 0149 (Given - Provid er: Giacomo Tsai RN) guaiFENesin-dextromethorphan (ROBITUSSIN DM) 100-10 MG/5ML syrup 10 mL (COMPLETED) 10 mL, Oral, ONCE, 1 dose, On 08/09/22 at 0145 0149 (Given - Provid er: Giacomo Tsai RN) Care Teams (unrecognized sec tion and content) Source Comments (unrecognize d section and content) In the event this informatio n is protected by the Federal Confidentiality of Alcohol and Drug Abuse Patient Records regulations: The Federal rules restrict any use of the information to criminally investigate or prosecute any alcohol or drug abuse patient.[facility] FOR RECORDS PERTAINING TO PATIENTS WHO ARE OR HAVE BEEN ENROLLED IN A CHEMICAL DEPENDENCY/SUBSTANCEABUSE PROGRAM, SOME INFORMATION MAY BE OMITTED. This clinical summary was aggregated from multiple sources. Caution should be exercised in using it in the provision of clinical care. This summary normalizes information from multiple sources, and as a consequence, information in this document may materially change the coding, format and clinical context of patient data. In addition, data may be omitted in some cases. CLINICAL DECISIONS SHOULD BE BASED ON THE PRIMARY CLINICAL RECORDS. [facility]. provides no warranty or guarantee of the accuracy or completeness of information in this document.
--- NOTE | 2023-08-22 20:17 | CT_ITS ---
STUDY: CT BRAIN WITHOUT CONTRAST REASON FOR EXAM: Male, 27 years old. Headache RADIATION DOSAGE (If Supplied By Facility): CTDIvol = ( 44.99 ) mGy, DLP = ( 812.98 ) mGycm TECHNIQUE: Transaxial CT imaging of the brain was performed without administration of intravenous contrast material. Individualized dose optimization techniques were used for this CT. COMPARISON: No relevant priors. FINDINGS: Normal soft tissue structures. Normal calvarium. Normal size ventricles and extra-axial spaces for the patient''s age. Normal white matter tracts of the cerebral hemispheres. Normal basal ganglia and thalami. Normal brainstem. Normal cerebellum. There is no intracranial hemorrhage. There are no findings of an acute ischemic infarction. Normal visualized paranasal sinuses. CT/Brain/Head without Contrast IMPRESSION: Normal unenhanced CT scan of the brain. Electronically Signed: Jude Serrano MD at 21:35 EST ,
[2023-08-22] MEDS: 0.9% Normal Saline (1000mL) 1,000 ML 1000 ML IV ×2 (20:37→21:32)
[2023-08-22 20:52] VITALS: BP 114/77; BP 142/58; PULSE 104; PULSE 118
[2023-08-22 20:57] LABS: Absolute Lymphocyte Count 0.75 X10^3/uL (0.83-4.51); Basophil# 0.04 X10^3/uL; Basophil% 0.2 % (0-1); Eosinophil# 0.12 X10^3/uL; Eosinophils% 0.7 % (0-5); Hematocrit 47.7 % (40-54); Hemoglobin 16.1 g/dL (13.0-16.5); Lymphocyte # 0.75 X10^3/ul (0.83-4.51); Lymphocyte % 4.1 % (19-41); Mean Corp Hgb Conc 33.8 g/dL (32-36); Mean Corpuscular Hgb 30.5 pg (27.0-32.0); Mean Corpuscular Volume 90.3 fL (80-94); Monocyte# 0.51 X10^3/uL; Monocyte% 2.8 % (0-10); NRBC Flagged by Analyzer 0 % (0-5); Neutrophil # 16.95 X10^3/uL (2.7-7.7); Neutrophil % 91.8 % (47-70); Platelet Count 220 K/mm3 (150-450); RBC Distribution Width CV 12.5 % (11.6-14.6); RBC Distribution Width SD 41.1 fl (35.1-43.9); Red Blood Count 5.28 M/mm3 (4.6-6.2); White Blood Count 18.5 K/mm3 (4.4-11.0)
[2023-08-22 20:59] LABS: Bacteria 0 SEEN /hpf (None Seen); Mucous, Urine 0 SEEN /hpf (<or=2+)
--- NOTE | 2023-08-22 21:01 | RAD_ITS ---
STUDY: X-RAY CHEST REASON FOR EXAM: Male, 27 years old. Weakness TECHNIQUE: PA and lateral views of the chest. COMPARISON: None. FINDINGS: Poor inspiration with some bibasilar atelectasis. There is no demonstrated pleural abnormality. Normal size heart. Normal mediastinum and nissa. Normal visualized pulmonary arteries. Normal visualized aortic arch and descending thoracic aorta. Normal visualized thoracic spine. Normal visualized ribs, clavicles, and shoulders. There is no demonstrated abnormality of the visualized soft tissue structures of the upper abdomen. RAD/Chest PA and Lateral IMPRESSION: Poor inspiration with some bibasilar atelectasis. Electronically Signed: Jude Serrano MD at 21:15 [facility] ,
[2023-08-22 21:04] LABS: Prothrombin Time (Protime)PT. 13.5 SECONDS (11.7-14.9)
[2023-08-22 21:05] LABS: Partial Thromboplast Time 26.1 Seconds (24.1-36.2)
[2023-08-22 21:08] LABS: Color, Urine Yellow (Yellow); Glucose, Dipstick Normal (Normal); Ketone-Dipstick 5 mg/dl (Negative); Leukocyte Esterase-Dipstick 25 /ul (Negative); Nitrite-Dipstick Negative (Negative); Occult Blood-Urine 10 /ul (Negative); Protein-Dipstick 30 mg/dl (Negative); Urine Clarity Clear (Clear); Urine Urobilinogen 1 mg/dl (Normal)
[2023-08-22 21:08] LABS: ALB/GLOB Ratio 1.1 RATIO (0.9-2.4); AST(SGOT) 28 U/L (15-37); Alanine Aminotransfer ALT/SGPT 75 U/L (16-61); Albumin, Serum 3.9 g/dL (3.2-5.0); Alkaline Phosphatase 73 U/L (45-117); Anion Gap 6 (5-15); BUN 19 mg/dL (7-18); BUN/Creat Ratio 15.4 RATIO (10-20); CPK Total, Creatine Kinase 162 U/L (39-308); Chloride 110 mmol/L (98-107); Creatinine, Serum 1.23 mg/dL (0.70-1.30); EST Glomerular Filtration Rate 74 mL/min (>60); Est Glom Filt Rate - Afr Amer 90 mL/min (>60); Estimated Creatinine Clearance 119.56 ml/min; Globulin 3.6 g/dL (2.2-4.2); Glucose 117 mg/dL (74-106); Potassium 4.1 mmol/L (3.5-5.1); Protein, Total 7.5 g/dL (6.4-8.2); Sodium Level 140 mmol/L (136-145)
[2023-08-22 21:14] LABS: Urine Bilirubin Dipstick 1 mg/dL (Negative)
[2023-08-22 21:15] LABS: Red Blood Cells-Urine 0-5 SEEN /hpf (0-5); Squamous Epithelial Cells - UA 0-5 SEEN /hpf (0-5); White Blood Cells 0-5 SEEN /hpf (0-5)
[2023-08-22 21:31] LABS: Lactic Acid 1.5 mmol/L (0.4-1.9)
[2023-08-22] MEDS: Ondansetron 4 MG/2 ML Vial IV (21:31)
[2023-08-22 21:34] VITALS: BP 135/73; PULSE 105; O2SAT 96
[2023-08-22 22:38] VITALS: BP 134/69; PULSE 100; RESP 18; O2SAT 97
== END 2023-08-22 22:40 | disposition home or self-care (01) ==
PROVIDERS: Emergency Provider Emergency Medicine; Visit Provider Emergency Medicine
DX: R06.00 Dyspnea, unspecified (principal); J02.9 Acute pharyngitis, unspecified; Z11.52 Encounter for screening for COVID-19; R11.2 Nausea with vomiting, unspecified; R51.9 Headache, unspecified; E86.0 Dehydration; R41.0 Disorientation, unspecified; R20.2 Paresthesia of skin; J45.909 Unspecified asthma, uncomplicated; F17.210 Nicotine dependence, cigarettes, uncomplicated
CPT/HCPCS: 70450; 71046; 80053; 81001; 82550; 83605; 85025; 85610; 85730; 87631; 96361; 96374; 99285; J7030; A4216; J2405

== ENCOUNTER 2024-05-02 00:33 | Emergency (ER) | payer MEDICAID, SELFPAY ==
[2024-05-02 00:37] VITALS: BP 139/83; PULSE 85; RESP 18; TEMP 36.7; O2SAT 98; BMI 34.3
--- NOTE | 2024-05-02 00:50 | RAD_ITS ---
EXAM: XR LEFT FOREARM, 2 VIEWS CLINICAL INDICATION: injury TECHNIQUE: Frontal and lateral views of the left forearm. COMPARISON: No relevant prior studies available. FINDINGS: BONES/JOINTS: Unremarkable. No acute fracture. No dislocation. SOFT TISSUES: Unremarkable. RAD/Forearm 2 Views IMPRESSION: Negative left forearm x-rays. Electronically Signed: Luis Miguel Murcia MD at 1:21 EDT ,
--- NOTE | 2024-05-02 00:50 | EX.ED.UPPERE ---
HPI History of Present Illness Chief Complaint: Upper Extremity Injury Informant: patient and spouse/S.O. Narrative Narrative: 28-year-old male [id number] states he was standing on a 3 foot or so tall concrete wall lost his balance and fell off landing on his left elbow, with acute onset of significant pain in the elbow and down to the mid left forearm. Numbness and tingling in all fingers. This was at a [employer], desktop publishing associate splinted him, he did some Tylenol earlier and presents for evaluation. No other injury. [facility] Medical History Asthma Home Medications ?Medication ?Instructions ?Recorded ?Last Taken ?Type naproxen 500 mg tablet 500 mg PO BID PRN pain #14 tabs 05/02/24 Unknown Rx Allergy/AdvReac Type Severity Reaction Status Date / Time Penicillins Allergy Severe Swelling Verified 05/02/24 00:40 Family History (Updated 07/01/23 @ 23:21 by Christina Douglass) Mother Thyroid disorder Surgical History H/O wrist surgery Hx of appendectomy Social History household members: significant other and children housing: apartment Smoking Status: Current every day smoker tobacco type: cigarettes ROS ROS ED Constitutional Constitutional ED: Denies chills or fever(s) Musculoskeletal Musculoskeletal: Reports extremity pain; Denies neck pain Integumentary Denies Abrasions, rash or wounds Neurologic Neurologic: Denies paresthesias or weakness EXAM Physical Exam Const Vital Signs: 05/02/24 00:37 Temperature 98.0 F Temperature Source Temporal Pulse Rate 85 Respiratory Rate 18 Blood Pressure 139/83 H Blood Pressure Mean 101 Pulse Ox 98 Oxygen Delivery Method Room Air Positive well nourished and well developed General Appearance ED: well developed and NAD Neck full ROM and supple Back/Spine normal ROM and normal to inspection Extremity Extremity Narrative: Forearm sugar-tong splint left upper extremity taken down. There is swelling in the junction of the middle and proximal thirds dorsal left forearm without obvious deformity, tenderness throughout all bony prominences of the left elbow without deformity, extremely limited range of motion with regards to the wrist and the elbow. Able to move all his fingers without difficulty. No tenderness at the distal radius or ulna. No tenderness at the shoulder he can abduct without difficulty there. Neuro oriented x3 and no focal motor deficits Neuro Narrative: Subjective decreased sensation all fingers left hand, however sensation is intact and he can feel. Limited ability to test all nerve function due to limited range of motion at the wrist but he is able to move all of the fingers and spread them without difficulty. Sensorium / Orientation: alert Psych mental status grossly normal and thought process normal Skin no wounds Skin Narrative: Left upper extremity skin intact. Rashes: no rashes MDM MDM MDM Narrative Medical decision making narrative: Three-view x-ray series of the left elbow on my interpretation negative for acute fracture or large effusion. There is no dislocation. I also obtained 2 view x-ray series of the entire forearm so that I did not miss some more proximal radius or ulna shaft fracture or a fracture/dislocation syndrome involving the distal aspect. On my interpretation these are also normal. Patient reassured given a sling something for pain, and orthopedic follow-up if this does not improve within the next week or 2. Radiography Diagnostic Testing: Clinical Impression(s) from Imaging Studies Forearm X-Ray 05/02/24 00:50 IMPRESSION: Negative left forearm x-rays. Electronically Signed: Luis Miguel Murcia MD at 1:21 EDT , Elbow X-Ray 05/02/24 01:00 IMPRESSION: Negative left elbow. Electronically Signed: Luis Miguel Murcia MD at 1:21 EDT , Discharge Plan Triage Chief Complaint: Upper Extremity Injury ED Provider: Kaleb Hightower Dx/Rx/DC Orders Clinical Impression: Contusion of elbow, left Instructions: ED Contusion, Elbow, ED Sling Prescriptions: New naproxen 500 mg tablet 500 mg PO BID PRN (Reason: pain) Qty: 14 0RF Primary Care Provider: Care Physician,No Primary Referrals: Borruso,Bruno, DO [Med Staff - Active Staff] - 1 Week if not improving Care Physician,No Primary [Primary Care Provider] - Print Language: Cape Verdean Disposition Disposition: Home, Self Care
[2024-05-02] MEDS: oxyCODONE 5 MG Tablet PO (00:56)
--- NOTE | 2024-05-02 01:00 | RAD_ITS ---
EXAM: XR LEFT ELBOW COMPLETE, 3 OR MORE VIEWS CLINICAL INDICATION: injury TECHNIQUE: Frontal, lateral and oblique views of the left elbow. COMPARISON: No relevant prior studies available. FINDINGS: BONES/JOINTS: Unremarkable. There is no displacement of the anterior or posterior fat pads. No acute fracture. No subluxation. Normal alignment. Preservation of the joint space. No destructive or sclerotic lesions. SOFT TISSUES: Unremarkable. No soft tissue swelling or gas. No radiopaque foreign body. RAD/Elbow min 3 Views IMPRESSION: Negative left elbow. Electronically Signed: Luis Miguel Murcia MD at 1:21 EDT ,
[2024-05-02 01:30] VITALS: BP 125/75; PULSE 73; RESP 18; TEMP 36.2; O2SAT 94
== END 2024-05-02 01:31 | disposition home or self-care (01) ==
PROVIDERS: Emergency Provider Emergency Medicine; Visit Provider Emergency Medicine
DX: S50.02XA Contusion of left elbow, initial encounter (principal); W17.89XA Other fall from one level to another, initial encounter; F17.210 Nicotine dependence, cigarettes, uncomplicated
CPT/HCPCS: 73080; 73090; 99282

== ENCOUNTER 2024-05-23 13:51 | Inpatient (IN) | payer MEDICAID, SELFPAY ==
[2024-05-23] VITALS (9 sets, daily range): BP systolic 124–139; BP diastolic 80–87; PULSE 59–90; RESP 16–20; TEMP 36.6–36.7; O2SAT 96–98; BMI 35.4
[2024-05-23] MEDS: Morphine 4 MG/ML Syringe IV (14:00)
--- NOTE | 2024-05-23 14:00 | RAD_ITS ---
STUDY: X-RAY - RIGHT HAND REASON FOR EXAM: Male, 28 years old. Acute pain after trauma. TECHNIQUE: 3 view(s) of the hand. COMPARISON: None. FINDINGS: There is an acute, comminuted, osteochondral displaced and angulated fracture of the middle phalanx of the fourth digit. There is approximately 1 cm of overlap of the fracture fragments and valgus angulation at the fracture site. There is evidence of a soft tissue laceration and soft tissue swelling along with multiple small fracture fragments. There is anatomic alignment of the distal fracture fragment of the middle phalanx and the distal phalanx. There is an acute, comminuted, multi fragmented comminuted osteochondral and likely compound fracture of the proximal aspect of the proximal fifth phalanx with near amputation of the fifth finger between the fracture fragments. The distal fracture fragment of the proximal phalanx shows valgus angulation as well. There is anatomic alignment between the distal fracture fragment of the proximal fifth phalanx and the middle and distal phalanges. There is an apparent open wound between the fracture fragments suggesting compound fracture as mentioned above, there is significant soft tissue swelling. Normal radiocarpal articulation. Normal distal radioulnar joint. Normal visualized carpal bones. Normal carpal articulations Normal carpometacarpal articulation of the thumb. Normal second through fifth carpometacarpal joints. Normal metacarpi. Normal metacarpophalangeal joint of the thumb. Normal interphalangeal joint of the thumb. Normal proximal and distal phalanges of the thumb. Normal metacarpophalangeal joints of the second through fifth fingers. Normal proximal and distal interphalangeal joints of the second through fifth fingers. Normal remaining phalanges of the second through fifth fingers. RAD/Hand Min 3 Views IMPRESSION: There is an acute, comminuted, osteochondral displaced and angulated fracture of the middle phalanx of the fourth digit. There is overlap of the fracture fragments, valgus angulation at the fracture site and skin laceration and soft tissue swelling. There is an acute, comminuted, multi fragmented comminuted osteochondral and likely compound fracture of the proximal aspect of the proximal fifth phalanx with near amputation of the fifth finger between the fracture fragments. Orthopedic surgery consultation recommended Electronically Signed: Beck Pittman MD at 14:36 EDT ,
[2024-05-23] MEDS: Ondansetron 4 MG/2 ML Vial IV (14:01)
--- NOTE | 2024-05-23 14:02 | EDS_ITS ---
HPI History of Present Illness Chief Complaint: Trauma Informant: patient, friend and EMS Narrative Narrative: 28-year-old wuysw-avte-dpdqzewi male presents with a right hand injury, it was work-related. Apparently he somehow accidentally stuck his hand into the radiator fan of a forklift, which injured his fingers. Denies any other injury. Tetanus Immunization: Unknown [facility] Medical History Asthma Home Medications ?Medication ?Instructions ?Recorded ?Last Taken ?Type
--- NOTE | 2024-05-23 14:02 | EX.ED.UPPERE ---
HPI History of Present Illness Chief Complaint: Trauma Informant: patient, friend and EMS Narrative Narrative: 28-year-old yiygk-qspe-tkhbxfho male presents with a right hand injury, it was work-related. Apparently he somehow accidentally stuck his hand into the radiator fan of a forklift, which injured his fingers. Denies any other injury. Tetanus Immunization: Unknown [facility] Medical History Asthma Home Medications ?Medication ?Instructions ?Recorded ?Last Taken ?Type naproxen 500 mg tablet 500 mg PO BID PRN pain #14 tabs 05/02/24 Unknown Rx Allergy/AdvReac Type Severity Reaction Status Date / Time Penicillins Allergy Severe Swelling Verified 05/02/24 00:40 Family History (Updated 07/01/23 @ 23:21 by Christina Douglass) Mother Thyroid disorder Surgical History Hx of appendectomy H/O wrist surgery Social History household members: significant other and children housing: apartment Smoking Status: Current every day smoker tobacco type: cigarettes ROS ROS ED Constitutional Constitutional ED: Denies chills or fever(s) Musculoskeletal Musculoskeletal: Reports extremity pain; Denies neck pain Integumentary Reports wounds; Denies Abrasions or rash Neurologic Neurologic: Denies paresthesias or weakness EXAM Physical Exam Const Vital Signs: 05/23/24 13:52 Temperature 98.1 F Temperature Source Oral Oxygen Delivery Method Room Air Positive well nourished and well developed General Appearance ED: well developed and NAD Neck full ROM and supple Back/Spine normal ROM and normal to inspection Extremity Extremity Narrative: Complex finger injury multiple fingers right hand. The fifth digit there is a deformity of the proximal phalanx, he is not able to move the flexors or extensor of that finger. With regards to the ring finger there is also complex laceration, he is able to flex the FDS, but not clear that he is able to flex the FDP. He is able to extend a little. Range of motion extremely limited due to severe pain. There is a very superficial flap laceration 1.5 cm at the volar middle phalanx of the long finger without any dermal involvement, and the FDP and FDS and extensor all intact there. The index finger moves fully including FDP, FDS, extensor, without any pain or limitation. There is a dorsal laceration distal phalanx of the right thumb that is 2 cm, involves the base of the nail, the nail is intact at the bed which appears to be intact as well, he can extend but has significant pain in doing so and distal phalanx is tender including at the IPJ. There is no proximal injuries to the MCPJ's. Neuro oriented x3, no focal motor deficits and no sensory deficits noted Sensorium / Orientation: alert Psych mental status grossly normal and thought process normal Skin Skin Narrative: Major wounds to the right fourth and fifth digits, as well as laceration to the dorsum of the right thumb see above. Total laceration length of the fourth and fifth digits is approximately 8 cm, in addition to the 2 cm laceration of the dorsum of the right thumb. Rashes: no rashes MDM MDM MDM Narrative Medical decision making narrative: Patient was given several doses of IV analgesics while we obtained x-rays and then I reexamined him. 3 view x-ray series of my interpretation shows open displaced fractures of the fourth middle phalanx and the fifth proximal phalanx, in addition to an open nondisplaced fracture of the distal phalanx of the thumb. He has some sensation and 2-3 sec cap refill to the 4th and 5th digits. Discussed with jody Parra who advises continuing to keep the patient comfortable, and plan will be taking him directly to the operating room. His tetanus was updated and he has been given Ancef 1 g IV, we maintain him n.p.o. His last oral intake was around noon. Management Discussion w/another healthcare provider: Environmental Engineer Scientist (jody Parra) Critical Care Time Critical Care Time: Yes Critical care time (excluding procedures): 30-74 minutes (33 min), Including time spent:, Discussing w/Patient &/or Family/Eligibility Examiner, Discussing w/Consultants, Arranging Admission or Transfer and Performing Direct Patient Care at Bedside Discharge Plan Triage Chief Complaint: Trauma ED Provider: Kaleb Hightower Dx/Rx/DC Orders Clinical Impression: Open fracture of finger of right hand, Immunization, tetanus-diphtheria Prescriptions: No Action naproxen 500 mg tablet 500 mg PO BID PRN (Reason: pain) Qty: 14 0RF Primary Care Provider: Care Physician,No Primary Referrals: Care Physician,No Primary [Primary Care Provider] - Print Language: Georgian Disposition Disposition: Acute Care Hospital [facility]
[2024-05-23] MEDS: Cefazolin 1 GM/50 ML BAG IV (14:40)
[2024-05-23] MEDS: HYDROmorphone 1 MG/ML Syringe IV ×2 (14:40→15:26)
[2024-05-23] MEDS: Diphth,Pertuss(Acell),Tet Vac 0.5 ML Vial IM (14:41)
--- NOTE | 2024-05-23 16:09 | RAD_ITS ---
EXAM: XR RIGHT HAND COMPLETE, 3 OR MORE VIEWS CLINICAL INDICATION: FX TECHNIQUE: Frontal, lateral and oblique views of the right hand. COMPARISON: Preoperative right hand radiographs of this same date. FINDINGS: 38 intraoperative images are obtained. Intraoperative views show interval placement of surgical fixation pins which transfix a fracture of the right little finger proximal phalanx, right thumb distal phalanx, and an intra-articular fracture of the ring finger middle phalanx. Please see operative report. Electronically Signed: Thong Greenberg MD at 3:36 EDT , RAD/Hand Min 3 Views IMPRESSION: undefined
[2024-05-23] MEDS: HYDROmorphone 0.5 MG/0.5 ML SYRINGE 1 MG IV (16:35)
--- NOTE | 2024-05-23 16:54 | CON.PCM.SX_ITS ---
Assessment & Plan Assessment/Plan (1) Open fracture of finger of right hand: (2) Digital nerve laceration, finger: (3) Tendon injury: PLAN: Plan I talked the patient extensively about the risks of surgery, including bleeding, infection, hardware failure/infection, damage to surrounding structures, surgical site dehiscence and wound formation, need for wound care, need for repeat operations, failure to obtain the desired result (including finger wounds/tissue ), DVT/PE, and the risks of anesthesia including . All of their questions were answered, and they agreed to proceed with surgery. Plan for emergent exploration in the operating room, wash out of open fractures, bony fixation, repair of tendons/nerves. HPI Consult Data Date of Consult: 05/23/24 HPI Narrative Reason for Consultation: Right hand trauma HPI Narrative: CARLYLE HERRERA, is a 28 M, jmoxi-epjh-tesigini, who presents with right hand trauma that happened at work today when he accidentally stuck his hand into a radiator fan of a forklift, injuring his right small ring and thumb fingers. He has broken metacarpal bones in this hand before which were fixed with K wires he reports. Patient is otherwise healthy and does not report any daily medication use. His tetanus was updated today in the emergency department. He does not have any history of bleeding or clotting problems personally or in his family. No family history or personal history of problems with anesthesia. He is a current every day smoker (discussed smoking cessation for wound healing). No other injury and he is cleared for surgery from the emergency department (trauma workup) Patient NPO since lunch at 1 pm. [facility] Medical History Asthma Home Medications ?Medication ?Instructions ?Recorded ?Last Taken ?Type NK 05/23/24 Unknown History Allergy/AdvReac Type Severity Reaction Status Date / Time Penicillins Allergy Severe Swelling Verified 05/02/24 00:40 Family History Mother Thyroid disorder Surgical History Hx of appendectomy H/O wrist surgery Social History household members: significant other and children housing: apartment Smoking Status: Current every day smoker tobacco type: cigarettes Physical Exam Narrative Right upper extremity: Open fractures right hand thumb, ring and small fingers. Volar to dorsal degloving injuries of the ring and small fingers, with a full-thickness laceration on the thumb. Motor: Able to bend and extend all MP, PIP, and DIP joints of the index and long fingers. He is able to bend and extend the IP joint of the thumb. He is unable to move his ring or small fingers on the right hand. Sensory: A needle was used for examination of his neurofunction. He had intact sensation to pinprick on the ulnar border of the small finger, but he did not have pinprick sensation on the radial border of the small finger. Sensation to pinprick was intact on the other fingers on the radial and ulnar borders including the ring finger. Vascular: The the fingers all had Doppler signal distal to the zone of injury out to the fingertips. Const alert and oriented x3 Resp normal respiratory effort Cardio Rate: regular rate Rhythm: regular rhythm Imaging Radiology Impression Hand X-Ray 05/23/24 14:00 IMPRESSION: There is an acute, comminuted, osteochondral displaced and angulated fracture of the middle phalanx of the fourth digit. There is overlap of the fracture fragments, valgus angulation at the fracture site and skin laceration and soft tissue swelling. There is an acute, comminuted, multi fragmented comminuted osteochondral and likely compound fracture of the proximal aspect of the proximal fifth phalanx with near amputation of the fifth finger between the fracture fragments. Orthopedic surgery consultation recommended Electronically Signed: Beck Pittman MD at 14:36 EDT , I personally reviewed the x-rays Charges/Coding Visit Charges Office Visits / Consults: 43782 OV L5 New 60min (57 modifier for decision to perform major surgery )
[2024-05-23] MEDS: Ipratropium/Albuterol Sulfate 3 ML AMPUL.NEB INHALATION (17:25)
--- NOTE | 2024-05-23 17:51 | PCM.PRE.AN2 ---
ASA Classification* ASA Classification ASA Classification: 2 and E Assessment & Plan Anesthesia* Anesthesia Assessment Anesthesia Assessment: Discussed sedation and/or anesthesia options, risks, benefits, and alternatives with patient/parents/legal guardian/POA. Questions invited. The patient/parents/legal guardian/POA seems to understand and agrees to proceed with anesthesia plan. Reviewed the physical assessment, medical history, allergy history and patient home medications list prior to surgery/procedure/anesthetic and documented any changes. Performed airway and anesthesia risk assessments. Anesthesia Type Anesthesia Type: General (RSI food at 2 pm) Anesthesia Focused Assessment* Temperature: 98.1 F Pulse Rate: 90 Blood Pressure: 124/80 Respiratory Rate: 20 Pulse Ox: 97 Airway Assessment Mouth opens: >3 cm Mallampati Score: I Focused Labs Anesthesia Preop lab: CBC WBC 18.5 K/mm3 (4.4-11.0) H 08/22/23 20:30 RBC 5.28 M/mm3 (4.6-6.2) 08/22/23 20:30 Hgb 16.1 g/dL (13.0-16.5) 08/22/23 20:30 Hct 47.7 % (40-54) 08/22/23 20:30 Plt Count 220 K/mm3 (150-450) 08/22/23 20:30 CHEMISTRY Potassium 4.1 mmol/L (3.5-5.1) 08/22/23 20:30 Sodium 140 mmol/L (136-145) 08/22/23 20:30 BUN 19 mg/dL (7-18) H 08/22/23 20:30 Creatinine 1.23 mg/dL (0.70-1.30) 08/22/23 20:30 Glucose 117 mg/dL (74-106) H 08/22/23 20:30 COAG PT 13.5 SECONDS (11.7-14.9) 08/22/23 20:30 Pre-Assessment Diagnosis/Proposed Procedure Planned Operative Procedure(s): Right Hand exploration repair injury to nerve, tendons, vessels Anesthesia History 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 When Was Last Pacemaker Check QUESTION #4 FULL TEXT: You/Your Family Experience fever (hyperthermia) with Anesthesia Last Oral Intake Last Oral intake: Last Oral Intake NPO since 13:30 05/23/24 16:26 Meds taken in AM with sips of water? Meds patient instructed to take am of surgery PONV PONV - electrical experimental mechanic: PONV - electrical experimental mechanic Female HX of Motion Sickness HX of N/V After Surgery Non-Smoker Duration of Surgery greater than 60 minutes Number of Risk Factors PONV Score Height & Weight Height & Weight: Anesthesia: Height & Weight Height 6 ft 0.05 in 05/23/24 16:26 Weight: 118.6 kg 05/23/24 16:26 Body Mass Index (BMI) 35.4 05/23/24 16:26 Respiratory Assessment Respiratory Assessment - electrical experimental mechanic: Respiratory Tract Infection Hx - electrical experimental mechanic Hx Respiratory Tract Infection No 05/23/24 16:26 STOP Sleep Apnea STOP Sleep Apnea - electrical experimental mechanic: STOP Sleep Apnea - electrical experimental mechanic Hx Hypertension No 05/23/24 16:26 Hx Sleep Apnea No 05/23/24 16:26 CPAP BIPAP Do you snore loudly (louder No 05/23/24 16:26 than talking or can be heard Do you often feel tired/ No 05/23/24 16:26 fatigued/ sleepy during daytime? Has anyone observed you stop No 05/23/24 16:26 breathing during sleep? STOP Results Negative 05/23/24 16:26 QUESTION #5 FULL TEXT : Do you snore loudly (louder than talking or can be heard through closed doors)? 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 Specify any problems Hx of Preganancy in last 3 Months Nurse Filling Out Transfusion & Questions: Date: Time: Patient unable to answer at this time (ie. confused, unrespo /Reproduction History /Reproductive History - electrical experimental mechanic: /Reproductive Hx- electrical experimental mechanic Hx Now No 05/23/24 16:26 Gestational Age (in weeks): EDC: Hx Hx Para Hx Section SAB Active Medications Active Medications: Current Medications Generic Name Dose Route Start Last Admin Trade Name Freq PRN Reason Stop Dose Admin Acetaminophen 1,000 mg 05/23/24 22:00 Acetaminophen 500 Mg Tablet PO Q8 ISABELLE Al Hydroxide/Mg Hydroxide 30 ml 05/23/24 17:10 Mag Hydrox/Al Hydrox/Simeth 30 Ml Udc PO Q6H PRN PRN Gastric Burning Docusate Sodium 100 mg 05/23/24 17:10 Docusate Sodium 100 Mg Capsule PO BID PRN PRN Constipation Enoxaparin Sodium 40 mg 05/24/24 10:00 Enoxaparin 40 Mg/0.4 Ml Syringe SC DAILY ISABELLE Hydromorphone HCl 1 mg 05/23/24 16:28 05/23/24 16:35 Hydromorphone 0.5 Mg/0.5 Ml Syringe IV 1 mg Q1H PRN Administration Pain Score 6-10 Hydromorphone HCl 0.5 mg 05/23/24 17:15 Hydromorphone 0.5 Mg/0.5 Ml Syringe IV Q3H PRN PRN Pain Score 6-10 Clindamycin Phosphate 600 mg in 50 mls @ 100 mls/hr 05/23/24 18:00 Cleocin IV Q6 ISABELLE Melatonin 3 mg 05/23/24 17:10 Melatonin 3 Mg Tablet PO QHS PRN PRN INSOMNIA Ondansetron HCl 4 mg 05/23/24 17:10 Ondansetron 4 Mg/2 Ml Vial IV Q8H PRN PRN NAUSEA/VOMITING Oxycodone HCl 5 mg 05/23/24 17:10 Oxycodone 5 Mg Tablet PO Q4H PRN PRN Pain Score 4-10 PFSH Medical History Asthma Home Medications ?Medication ?Instructions ?Recorded ?Last Taken ?Type NK 05/23/24 Unknown History Allergy/AdvReac Type Severity Reaction Status Date / Time Penicillins Allergy Severe Swelling Verified 05/02/24 00:40 Family History Mother Thyroid disorder Surgical History Hx of appendectomy H/O wrist surgery Social History household members: significant other and children housing: apartment Smoking Status: Current every day smoker tobacco type: cigarettes Review of Systems (Anesthesia) ROS Narrative System reviewed and no additional complaints, except as documented.
[2024-05-23] MEDS: Cefazolin 3 GM in Syringe 1 EACH IV (18:58)
[2024-05-23] MEDS: Bupivacaine 0.25% 30 ML Vial (23:42)
[2024-05-24] VITALS (12 sets, daily range): BP systolic 110–138; BP diastolic 53–84; PULSE 83–124; RESP 13–20; TEMP 36.5–37.1; O2SAT 88–97; BMI 35.4
--- NOTE | 2024-05-24 00:13 | PCM.POST.ANE ---
Anesthesia: Postop Eval I Current Vital Signs Temperature: 98 F Pulse Rate: 124 Blood Pressure: 138/82 Respiratory Rate: 20 Pulse Ox: 94 Oxygen Delivery Method: Room Air Assessment Airway patent: Yes Spontaneous unlabored respirations: Yes Mental status: Awake and Calm nausea: No Vomiting: No Anesthesia Complication: No Fluid Hydration Crystalloid volume administer (ml): 1,200 Total IV fluid infused: 1,200 Progress Note Anesthesia document: Postop Eval 1 completed: Yes
--- NOTE | 2024-05-24 00:14 | POSTOPAN2_ITS ---
Anesthesia Postop Eval I Sum Postop Eval Completion status Anesthesia document: Postop Eval 1 completed: Yes Anesthesia Postop Eval I Summary Anesthesia Postop Eval I Summary: Anesthesia Postop Eval I: Assessment Summary Airway patent Yes 05/24/24 00:14 DATA WAREHOUSE CONSULTANT.[email or web address] Spontaneous unlabored Yes 05/24/24 00:14 DATA WAREHOUSE CONSULTANT.OT respirations Mental status Awake,Calm 05/24/24 00:14 DATA WAREHOUSE CONSULTANT.MDOT nausea No 05/24/24 00:14 DATA WAREHOUSE CONSULTANT.MDOT Vomiting No 05/24/24 00:14 DATA WAREHOUSE CONSULTANT.MDOT Anesthesia Postop Eval I: Fluid Summary Crystalloid volume administer 1,200 05/24/24 00:14 DATA WAREHOUSE CONSULTANT.MDOT (ml) Colloids volume administered ( ml) Blood Product volume administered (ml) Total IV fluid infused 1,200 05/24/24 00:14 DATA WAREHOUSE CONSULTANT.[email or web address] Anesthesia Postop Eval I: Summary Notes Anesthesia Complication No 05/24/24 00:14 DATA WAREHOUSE CONSULTANT.[email or web address] Anesthesia Complication Comment: Post-operative progress note Anesthesia: Postop Eval II Evaluation Mental status: Awake and Calm Pain Level: 2 nausea: No Vomiting: No Complications Anesthesia Complication: No
--- NOTE | 2024-05-24 00:14 | PCM.POSTANE2 ---
Anesthesia Postop Eval I Sum Postop Eval Completion status Anesthesia document: Postop Eval 1 completed: Yes Anesthesia Postop Eval I Summary Anesthesia Postop Eval I Summary: Anesthesia Postop Eval I: Assessment Summary Airway patent Yes 05/24/24 00:14 PARLIAMENTARY COUNSEL.[email or web address] Spontaneous unlabored Yes 05/24/24 00:14 PARLIAMENTARY COUNSEL.OT respirations Mental status Awake,Calm 05/24/24 00:14 PARLIAMENTARY COUNSEL.MDOT nausea No 05/24/24 00:14 PARLIAMENTARY COUNSEL.MDOT Vomiting No 05/24/24 00:14 PARLIAMENTARY COUNSEL.MDOT Anesthesia Postop Eval I: Fluid Summary Crystalloid volume administer 1,200 05/24/24 00:14 PARLIAMENTARY COUNSEL.MDOT (ml) Colloids volume administered ( ml) Blood Product volume administered (ml) Total IV fluid infused 1,200 05/24/24 00:14 PARLIAMENTARY COUNSEL.CHRIS Anesthesia Postop Eval I: Summary Notes Anesthesia Complication No 05/24/24 00:14 PARLIAMENTARY COUNSEL.CHRIS Anesthesia Complication Comment: Post-operative progress note Anesthesia: Postop Eval II Evaluation Mental status: Awake and Calm Pain Level: 2 nausea: No Vomiting: No Complications Anesthesia Complication: No
[2024-05-24] MEDS: oxyCODONE 5 MG Tablet PO ×5 (01:34→22:12)
[2024-05-24] MEDS: HYDROmorphone 0.5 MG/0.5 ML SYRINGE 1 MG IV (02:48)
[2024-05-24] MEDS: 0.9% Saline Lock 10 ML Syringe IV ×7 (02:49→22:18)
[2024-05-24] MEDS: Acetaminophen 500 MG Tablet 1000 MG PO ×3 (05:09→22:12)
[2024-05-24 06:48] LABS: Absolute Lymphocyte Count 2.33 X10^3/uL (0.83-4.51); Absolute Neutrophil Count 17.8 X10^3/uL (2.0-7.7); Basophil# 0.05 X10^3/uL; Basophil% 0.2 % (0-1); Eosinophil# 0.04 X10^3/uL; Eosinophils% 0.2 % (0-5); Hematocrit 41.2 % (40-54); Hemoglobin 13.6 g/dL (13.0-16.5); Lymphocyte # 2.33 X10^3/ul (0.83-4.51); Lymphocyte % 10.8 % (19-41); Mean Corpuscular Hgb 30.6 pg (27.0-32.0); Mean Corpuscular Volume 92.8 fL (80-94); Mean Platelet Vol. 10.7 fl (6.2-12.0); Monocyte# 1.28 X10^3/uL; Monocyte% 5.9 % (0-10); NRBC Flagged by Analyzer 0 % (0-5); Neutrophil # 17.79 X10^3/uL (2.7-7.7); Neutrophil % 82.5 % (47-70); Platelet Count 223 K/mm3 (150-450); RBC Distribution Width CV 12.7 % (11.6-14.6); RBC Distribution Width SD 43.5 fl (35.1-43.9); Red Blood Count 4.44 M/mm3 (4.6-6.2); White Blood Count 21.6 K/mm3 (4.4-11.0)
[2024-05-24] MEDS: HYDROmorphone 0.5 MG/0.5 ML SYRINGE IV ×4 (08:22→14:05)
--- NOTE | 2024-05-24 08:34 | PCM.OP.BLANK ---
Operative Report Date of Procedure: 05/23/24 Surgery/Procedure Date: 23 May 2024 Incision/Procedure Start Time: 18:51 Incision Close/Procedure End Time: 23:52 (5 hours, 1 minute) Tourniquet times: 19:56-20:34 (38 min) 22:04-23:34 (90 min) PATIENT: Chemo Angel SURGEON: Masood Parra MD INTENSIVE CARE UNIT REGISTERED NURSE: Magdalene Taylor (held retractors and stabilized fingers during pinning) PRE-OPERATIVE DIAGNOSIS: Right hand trauma from radiator fan of fork lift POST-OPERATIVE DIAGNOSIS: same PROCEDURE PERFORMED: 1) Wash out of open distal phalanx fracture, right thumb (CPT 91765 ) 2) Open reduction percutaneous pinning of right thumb distal phalanx (CPT: 57893) 3) Nail bed repair, right thumb (CPT 57739) 4) Wash out of right ring finger (RRF) middle phalanx fracture (CP 79860) 5) Open reduction percutaneous pinning of RRF middle phalanx (P2) fracture (CPT: 41159) 6) Radial collateral ligament repair, right ring finger proximal interphalangeal (PIP) joint (CPT 04202) 7) Zone 2 Flexor digitorum profundus repair (FDP) of RRF (CP 80272) 8) Wash out of open proximal phalanx fracture, right small finger (RSF) proximal phalanx (P1), (CPT 71053) 9) Open reduction percutaneous pinning RSF P1 fracture (CPT: 43424) 10) Zone 2 Flexor digitorum profundus repair (FDP) of (CPT 65458) 11) Zone 2 Flexor digitorum superficialis repair (FDS), radial slip (CPT 40801) 12) Repair of extensor tendon, right small finger (CPT: 57144) 13) Radial digital nerve repair, RSF (CPT: 53095) 14) Simple repair of hand lacerations, 10 cm (CPT 88246) OPERATIVE FINDINGS: Severely comminuted fracture of the proximal phalanx of the right small finger with missing bone from the injury. Severely comminuted fracture of the middle phalanx base of the right ring finger. Radial collateral ligament injury with avulsion of the FDS insertions and avulsion of the A3 and 4 pulleys. Dirt in the wound INDICATIONS: Kadeem Angel is a 28-year-old male who presented to the emergency department today, 23 May 2024, after accidentally placing his hand in a radiator fan on a forklift. I talked to him extensively about finger salvage versus amputation and the alternatives and risks and benefits of surgery for reconstruction. I talked the patient extensively about the bleeding, infection, damage to surrounding structures, surgical site dehiscence and wound formation, need for wound care, need for repeat operations, failure to obtain the desired result, DVT/PE, and the risks of anesthesia including . All of their questions were answered, and they agreed to proceed with surgery. I discussed all risks, benefits, and alternatives. OPERATIVE DETAILS: Patient was taken emergently back to the operating room where he was administered general anesthesia and he was prepped and draped in sterile fashion. His hand was extensively scrubbed and washed and peroxide and chlorhexidine were used to further remove debris and dirt from work. A tourniquet was applied on the arm []. Once the hand was satisfactorily cleaned, we began the procedure. I began the procedure by removing the nail plate from the right thumb exposing an open distal phalanx fracture with nailbed laceration. The wound was irrigated with 3 L normal saline and the fracture was manually reduced. Two 0.035 cross K wires were placed to stabilize the fracture and the mini C arm was used to confirm stabilization. Chromic Gut suture was used to repair the eponychium and 5-0 fast gut was used to repair the sterile matrix. The eponychial him was stented with a piece of aluminum from the suture packet which was sutured into place with a chromic. Attention was then turned to the ring finger. This wound was washed out with 3 L of normal saline for washout of open fracture. Through the lacerations I was able to identify the cut ends of the flexor digitorum profundus. The radial and ulnar digital neurovascular bundles were intact. The FDS insertions and the A3 and A4 pulleys were avulsed and broken. The radial collateral ligament was torn. There was a severe comminuted fracture at the base of P2 of the ring finger. Three 0.035 K wires were placed to attempt stabilization of the proximal fragment to the distal fragment. Following bony stabilization we turned our attention to tendon repair. The FDP tendon was repaired with 4 core strands of 3-0 Ethibond using 2 modified Steel sutures on both sides of the tendon followed by 6-0 running epitendinous suture. The FDS repair was deferred. A cruciate pattern 3-0 Ethibond was placed for the repair of the torn radial collateral ligament. Attention was then turned to the small finger. The wound was explored and the cut radial digital neurovascular bundle identified. The FDS and FDP tendons were also identified. There was also severe injury to the nikkie system from the laceration. The A2 and 3 pulleys were avulsed. There was an open fracture to the proximal phalanx. There was missing bone in the wound and the bone was quite dirty and required washout with 6 L of normal saline and debridement of dirt. The fracture was then manually reduced as best as possible and attempt at crossing two 0.035 K wires was made to stabilize the fracture. One 0.035 K wire was placed through the metacarpal into both bony fragments. Following stabilization of the fragments, the FDS and FDP were repaired. The FDP was repaired with a 4 core strand repair using 3-0 Ethibond with 2 modified Steel sutures followed by a 6-0 running epitendinous suture. The radial slip of the FDS was then repaired with 2 cruciate 4-0 Ethibond sutures for a 4 core strand repair followed by a epitendinous 6-0 Prolene running suture. Attention was then turned to the digital nerve repair on the radial side of the small finger. The nerve edges were identified under magnification of the microscope and approximated with two 180 degree 8-0 nylon sutures followed by placement of a nerve protector (Axogen AoGaurd Nerve Connector (2mm x 15 mm)). The wounds were then closed with interrupted 3-0 Nylon suture (10 cm simple repair lacerations). The hand was then placed in a thumb spica/dorsal blocking splint with the fingers in slight flexion. The fingers were warm and well-perfused at the end of the case. The patient was awakened and taken the PACU in stable condition and admitted. EBL: 50 cc Anesthesia: General and 0.25% Marcaine digital block (20 cc) at the completion of the case ASA: 2 IVF: 1100 cc LR UOP: Unmeasured (no barnes) Transfusions: none Antibiotics: 3 g Ancef at the start of the case)
--- NOTE | 2024-05-24 09:06 | RAD_ITS ---
INDICATION: hand trauma - post surgery EXAMINATION/TECHNIQUE: X-RAY - RIGHT XR Hand Min 3 Views 4 VIEWS COMPARISON: May 23, 2024 FINDINGS: There is a fracture within the diaphysis of the first distal phalanx with 2 screws traversing the fracture. In addition, there is a comminuted fracture of the third middle phalanx with 3 fixation pins traversing the mid and proximal middle phalanx. There is a comminuted fracture of the base of the fifth proximal phalanx with a surgical fixation pin traversing the mid and base of the fifth proximal phalanx as well as the distal fifth MCP, third MCP joint and the proximal aspect of the fifth proximal phalanx. The alignment of the thumb is grossly anatomic. There is improved alignment of the fourth and fifth digits. There is diffuse soft tissue swelling. RAD/Hand Min 3 Views IMPRESSION: Status post surgical fixation of the first distal, fourth middle and fifth proximal phalanges. Electronically Signed: Elida Rodriguez MD at 9:32 EDT ,
[2024-05-24] MEDS: Enoxaparin 40 MG/0.4 ML Syringe SC (09:30)
[2024-05-24] MEDS: Cefazolin 1 GM/50 ML BAG IV (09:31)
[2024-05-24] MEDS: Ondansetron 4 MG/2 ML Vial IV (09:41)
--- NOTE | 2024-05-24 09:54 | PCM.PN.SRG ---
Subjective Subjective Postop #1 Patient is having a lot of discomfort. He is feeling nauseated with his pain. He has been keeping his right hand elevated. Objective Data Objective Data Vital Signs: Vital Signs Temp Pulse Resp BP Pulse Ox O2 Del Method O2 Flow Rate 97.8 F 94 16 119/67 96 Nasal Cannula 2 05/24/24 05:11 05/24/24 05:11 05/24/24 05:11 05/24/24 05:11 05/24/24 05:11 05/24/24 05:11 05/24/24 05:11 Oxygen Flow Rate (L/min) 2 Oxygen Delivery Method Nasal Cannula Weight: 261 lb 7.492 oz Body Mass Index (BMI) 35.4 Intake & Output: Intake and Output for Last 24 Hours 05/22/24 05/23/24 05/24/24 23:59 23:59 23:59 Intake Total 80 / 80 1650 / 1650 Output Total 200 / 200 1000 / 1000 Balance -120 / -120 650 / 650 Lab / Micro Data Attestation: I reviewed the patient's lab results. 05/24/24 06:19 Labs: Laboratory Results - last 24 hr 05/24/24 06:19: WBC 21.6 H, RBC 4.44 L, Hgb 13.6, Hct 41.2, MCV 92.8, MCH 30.6, MCHC 33.0, RDW Std Deviation 43.5, RDW Coeff of Jessica 12.7, Plt Count 223, MPV 10.7, Immature Gran % (Auto) 0.400, Neut % (Auto) 82.5 H, Lymph % (Auto) 10.8 L, [place] % (Auto) 5.9, Eos % (Auto) 0.2, Baso % (Auto) 0.2, Absolute Neuts (auto) 17.8 H, Absolute Lymphs (auto) 2.33, Nucleated RBC % 0 Radiography Diagnostic Testing: Radiology Impression Hand X-Ray 05/23/24 14:00 IMPRESSION: There is an acute, comminuted, osteochondral displaced and angulated fracture of the middle phalanx of the fourth digit. There is overlap of the fracture fragments, valgus angulation at the fracture site and skin laceration and soft tissue swelling. There is an acute, comminuted, multi fragmented comminuted osteochondral and likely compound fracture of the proximal aspect of the proximal fifth phalanx with near amputation of the fifth finger between the fracture fragments. Orthopedic surgery consultation recommended Electronically Signed: Beck Pittman MD at 14:36 EDT , Hand X-Ray 05/23/24 16:09 IMPRESSION: undefined Hand X-Ray 05/24/24 09:06 IMPRESSION: Status post surgical fixation of the first distal, fourth middle and fifth proximal phalanges. Electronically Signed: Elida Rodriguez MD at 9:32 EDT , Physical Exam Narrative Removed right hand splint for 3 view x-ray of right hand. It was extremely painful for patient to have it removed. Right hand is very swollen. Pins in place on right thumb, right ring finger and right small finger. Pain with supination of forearm. Capillary refill < 2 seconds right hand. Once x-ray was completed, reapplied gauze and cotton then replaced splint and secured with SOCO wrap. Const alert and oriented x3 General Appearance: cooperative HEENT normocephalic Eyes General Eye: normal appearance of both eyes Resp normal respiratory effort Effort and Inspection: able to speak in complete sentences Cardio regular rate Assessment & Plan Assessment/Plan (1) Hand trauma: (2) Tendon injury: (3) Digital nerve laceration, finger: (4) Immunization, tetanus-diphtheria: (5) Open fracture of finger of right hand: PLAN: Plan Patient taken to OR 05/23/[address] Parra for washout and ORIF. Keep hand elevated. He is receiving Cefazolin IV. ID consulted for assistance with antibiotic management. Having issue with pain control. Will increase his Oxycodone to 5-10 mg and will give a range on the Dilaudid. Spoke with Dr. Parra about plan of care and pain control, he agrees with scheduled Toradol to see if this will help with pain control. Will continue to monitor him closely. X-ray obtained this morning which shows: INDICATION: hand trauma - post surgery EXAMINATION/TECHNIQUE: X-RAY - RIGHT XR Hand Min 3 Views 4 VIEWS COMPARISON: May 23, 2024 FINDINGS: There is a fracture within the diaphysis of the first distal phalanx with 2 screws traversing the fracture. In addition, there is a comminuted fracture of the third middle phalanx with 3 fixation pins traversing the mid and proximal middle phalanx. There is a comminuted fracture of the base of the fifth proximal phalanx with a surgical fixation pin traversing the mid and base of the fifth proximal phalanx as well as the distal fifth MCP, third MCP joint and the proximal aspect of the fifth proximal phalanx. The alignment of the thumb is grossly anatomic. There is improved alignment of the fourth and fifth digits. There is diffuse soft tissue swelling. RAD/Hand Min 3 Views IMPRESSION: Status post surgical fixation of the first distal, fourth middle and fifth proximal phalanges. Electronically Signed: Elida Rodriguez MD at 9:32 EDT , Charges/Coding Procedures Integumentary [id number]: [id number] Global Visit
--- NOTE | 2024-05-24 10:47 | PCM.CONS.GEN ---
Assessment & Plan Assessment/Plan (1) Open fracture of finger of right hand: (2) Hand trauma: PLAN: Taken to OR emergently by Dr. Parra 05/23/24 for I&D and ORIF of R 1st, 4th, and 5th fingers after hand trauma at work. On cefazolin. H/o PCN allergy, no issues with cefazolin here. Will continue. Thank you. 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 He is R handed. Given tetanus shot in ED. Taken to OR by Dr. Parra emergently 05/23 for washout, ORIF. Now on cefazolin, pain controlled, some nausea. Full ROS performed and neg except as noted above. [facility] Medical History Asthma Home Medications ?Medication ?Instructions ?Recorded ?Last Taken ?Type NK 05/23/24 Unknown History Allergy/AdvReac Type Severity Reaction Status Date / Time Penicillins Allergy Severe Swelling Verified 05/02/24 00:40 Family History Mother Thyroid disorder Surgical History Hx of appendectomy H/O wrist surgery Social History household members: significant other and children housing: apartment Smoking Status: Current every day smoker tobacco type: cigarettes Physical Exam Const alert, oriented x3 and no apparent distress General Appearance: cooperative HEENT normocephalic and head/scalp atraumatic Eyes PERRL and EOMs intact bilaterally Neck supple and No nodes Resp normal air movement and clear to auscultation bilaterally Cardio regular rate and regular rhythm GI soft to palpation, non-tender and non-distended Extremity General Extremity: Negative for edema Skin Skin Narrative: R hand wrapped, reviewed photos Neuro CN's II-XII intact bilaterally Lab / Micro Data Attestation: I reviewed the patient's lab results. 05/24/24 06:19 Labs: Laboratory Results - last 24 hr 05/24/24 06:19: WBC 21.6 H, RBC 4.44 L, Hgb 13.6, Hct 41.2, MCV 92.8, MCH 30.6, MCHC 33.0, RDW Std Deviation 43.5, RDW Coeff of Jessica 12.7, Plt Count 223, MPV 10.7, Immature Gran % (Auto) 0.400, Neut % (Auto) 82.5 H, Lymph % (Auto) 10.8 L, Mchenry % (Auto) 5.9, Eos % (Auto) 0.2, Baso % (Auto) 0.2, Absolute Neuts (auto) 17.8 H, Absolute Lymphs (auto) 2.33, Nucleated RBC % 0 Imaging Radiology Impression Hand X-Ray 05/23/24 14:00 IMPRESSION: There is an acute, comminuted, osteochondral displaced and angulated fracture of the middle phalanx of the fourth digit. There is overlap of the fracture fragments, valgus angulation at the fracture site and skin laceration and soft tissue swelling. There is an acute, comminuted, multi fragmented comminuted osteochondral and likely compound fracture of the proximal aspect of the proximal fifth phalanx with near amputation of the fifth finger between the fracture fragments. Orthopedic surgery consultation recommended Electronically Signed: Beck Pittman MD at 14:36 EDT , Hand X-Ray 05/23/24 16:09 IMPRESSION: undefined Hand X-Ray 05/24/24 09:06 IMPRESSION: Status post surgical fixation of the first distal, fourth middle and fifth proximal phalanges. Electronically Signed: Elida Rodriguez MD at 9:32 EDT ,
--- NOTE | 2024-05-24 11:18 | CASEMGMT ---
Addendum entered by Anjali Negrete 05/24/24 14:43: Pt has an appt on Thursday with [place] PCP. Appt at 1:30p, pt to be there at 1pm. Pt made aware. Placed on dc instructions and in handoff should pt not be dc'd by then, appt will need to be cancelled. Original Note: JAYY PEREZ Assessment: Face to Face with pt for initial transition planning/care coordination assessment. JAYY PREEZ introduced self and role at [facility], pt voices understanding and consents to assessment. Pt is A&O x4 and answers all questions appropriately at this time. Pt sitting up in bed in no distress. Care providers, pharmacy, and demographics verified/updated. Admitting Dx: R hand multi trauma Strata Score: 2 PCP:No PCP, provided pt with a local healthcare directory list. Pt would like JAYY PEREZ to set up appt with [place] office, he has no preference on which doctor and is aware they are both female. Pt wants an appt after 2:30pm if possible. Specialists:Denies Preferred Pharmacy:[facility] Insurance: [employer] [facility] Prescription Benefit: yes LNOK: Shobha Sherice, sig other Living Arrangements: Pt lives with sig other and 2 step children in a single story home with no steps to enter. Pt reports he is I in ADLs and denies concerns at home. Transportation: Pt drives self and denies concerns with transportation. Pt sig other can transport him until pt can drive. DME:Denies HHC/SNF: Denies hx of Pt states no concerns with going home at time of dc. Pt aware that JAYY PEREZ to follow for pt needs at dc. Pt states he thinks he will be going back to surgery for amputation of finger. Pt states he does not want this submitted under workers comp. 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 Pt states no further concerns/needs. CM to follow. Advised pt to ask CM if any further question/concerns/needs arise, voices understanding. Pt Goal: Home Plan: Home pending course of hospitalization, PCP appt to be set up. Follow ID recs and any wound care needed. Aria HOPE CM
[2024-05-24] MEDS: Cefazolin 2 GM in 0.9% Normal Saline (100mL Bag) 100 ML IV ×2 (13:58→22:17)
[2024-05-24] MEDS: Ketorolac 15 MG/ML Vial IV (16:15)
--- NOTE | 2024-05-24 16:41 | NURSING ---
Up to wheelchair and being pushed in the soliman by his mother. Pt wanted to get out of his room for a bit.
[2024-05-24] MEDS: HYDROmorphone 1 MG/ML Syringe IV (19:39)
[2024-05-24] MEDS: Docusate Sodium 100 MG Capsule PO (22:12)
[2024-05-25] VITALS (14 sets, daily range): BP systolic 105–155; BP diastolic 56–87; PULSE 76–118; RESP 14–19; TEMP 36.5–37.8; O2SAT 88–98; BMI 35.4
[2024-05-25] MEDS: HYDROmorphone 1 MG/ML Syringe IV ×4 (00:19→22:15)
[2024-05-25] MEDS: 0.9% Saline Lock 10 ML Syringe IV ×4 (00:19→08:21)
[2024-05-25] MEDS: oxyCODONE 5 MG Tablet PO (06:07)
[2024-05-25] MEDS: Cefazolin 2 GM in 0.9% Normal Saline (100mL Bag) 100 ML IV ×3 (06:07→22:12)
[2024-05-25] MEDS: Acetaminophen 500 MG Tablet 1000 MG PO ×2 (06:07→22:12)
--- NOTE | 2024-05-25 07:57 | PCM.PN.SRG ---
Subjective Subjective Severe pain this morning. Adding Neurontin. IV pain medication helping. Elevation helping. Objective Data Objective Data Vital Signs: Vital Signs Temp Pulse Resp BP Pulse Ox O2 Del Method O2 Flow Rate 98.1 F 79 14 105/61 98 Nasal Cannula 2 05/25/24 04:00 05/25/24 04:00 05/25/24 04:00 05/25/24 04:00 05/25/24 04:00 05/25/24 04:00 05/25/24 04:00 Oxygen Flow Rate (L/min) 2 Oxygen Delivery Method Nasal Cannula Weight: 261 lb 7.492 oz Body Mass Index (BMI) 35.4 Intake & Output: Intake and Output for Last 24 Hours 05/23/24 05/24/24 05/25/24 23:59 23:59 23:59 Intake Total 80 / 80 2380 / 2380 220 / 220 Output Total 200 / 200 1000 / 1000 Balance -120 / -120 1380 / 1380 220 / 220 Lab / Micro Data 05/24/24 06:19 Radiography Diagnostic Testing: Radiology Impression Hand X-Ray 05/24/24 09:06 IMPRESSION: Status post surgical fixation of the first distal, fourth middle and fifth proximal phalanges. Electronically Signed: Elida Rodriguez MD at 9:32 EDT , Physical Exam Narrative Fingers are warm well-perfused and splint is in place. They are in a flexed position with the wrist in slight extension. Hand is elevated. Const alert and oriented x3 General Appearance: cooperative HEENT normocephalic Eyes General Eye: normal appearance of both eyes Resp normal respiratory effort Effort and Inspection: able to speak in complete sentences Cardio regular rate Assessment & Plan Assessment/Plan (1) Hand trauma: PLAN: I reviewed the x-rays from yesterday. The PIP joint of the ring finger has an unstable P2 base fracture that is inadequately fixated with the K wires. I need revision of the PIP joint ring finger K wires, with the plan to put them through the joint to stabilize the fracture. I counseled the patient extensively about how his PIP joint of the ring finger will be very stiff, but that in the setting of a collateral ligament injury as well/the fracture pattern, I do not think a dynamic Ex-Fix or any other treatment with help him better than this option. I also believe that we can further revise the small finger fracture, and would benefit from another washout as the wound was previously dirty. I can then place cadaver bone chips more safely to improve fracture healing of P1 of the small finger, and revise the k wires. I talked to him about the placement of bone chips and the risks of infection. The patient understands the risks and benefits of the above-discussed surgical intervention today. I talked to him about continued finger salvage. 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 He agreed and would like to proceed. Again he understands the risk of hardware failure, need for repeat surgeries, failure to obtain the desired result, damage to surrounding structures, need for revision of the tendons or nerves, nonunion and need for potential bone grafting in the future. Charges/Coding Procedures Integumentary [id number]: [id number] Global Visit
--- NOTE | 2024-05-25 08:04 | NURSING ---
pt is NPO and is aware.
[2024-05-25] MEDS: Ketorolac 15 MG/ML Vial IV (08:20)
--- NOTE | 2024-05-25 08:35 | WOUNDNOTE ---
In to assess the right hand dressing. pt states Dr Parra was in this am and plans to take patient back to surgery today. will leave dressing in place at this time. patient able to move all the fingers today except for the pinky finger. pt states pain is much improved today. will follow as needed.
[2024-05-25] MEDS: HYDROmorphone 0.5 MG/0.5 ML SYRINGE IV ×2 (09:05→11:36)
--- NOTE | 2024-05-25 13:29 | PCM.PN.ID ---
Physical Exam Const alert and no apparent distress General Appearance: cooperative Resp normal air movement and clear to auscultation bilaterally Cardio regular rate and regular rhythm GI soft to palpation, non-tender and non-distended Skin Skin Narrative: hand wrapped ID ID: Route of nutrition/ use of supplements: [] Nutritional Intake: [] IV Site: [] Fisher Catheter: [] Assessment & Plan Assessment/Plan (1) Open fracture of finger of right hand: (2) Hand trauma: PLAN: Taken to OR emergently by Dr. Parra 05/23/24 for I&D and ORIF of R 1st, 4th, and 5th fingers after hand trauma at work. On cefazolin. H/o PCN allergy, no issues with cefazolin here. OR planned for today. Will continue.
--- NOTE | 2024-05-25 14:42 | HP.PCM.SX_ITS ---
HPI - General General Date of Admission: 05/23/24 HPI Narrative CARLYLE HERRERA, is a 28 M who presents for repeat wash out, revision K wires and cadaver bone chip placement. [facility] Medical History Asthma Home Medications ?Medication ?Instructions ?Recorded ?Last Taken ?Type NK 05/23/24 Unknown History Allergy/AdvReac Type Severity Reaction Status Date / Time Penicillins Allergy Severe Swelling Verified 05/02/24 00:40 Family History Mother Thyroid disorder Surgical History Hx of appendectomy H/O wrist surgery Social History household members: significant other and children housing: apartment Smoking Status: Current every day smoker tobacco type: cigarettes Vital Signs Vital Signs Vital Signs: 05/24/24 19:35 05/24/24 19:35 05/25/24 00:00 Temperature 97.9 F Temperature Source Oral Pulse Rate 83 Pulse Strength Normal (2+) Respiratory Rate 13 Blood Pressure 110/53 L Blood Pressure Mean 72 Blood Pressure Source Monitor Blood Pressure Position Semi-Fowlers Blood Pressure Location Left Arm Pulse Ox 95 88 Oxygen Delivery Method Room Air Room Air Oxygen Flow Rate (L/min) 05/25/24 00:05 05/25/24 04:00 05/25/24 08:00 Temperature 98.6 F 98.1 F 98.1 F Temperature Source Oral Oral Oral Pulse Rate 93 79 82 Pulse Strength Respiratory Rate 14 14 19 H Blood Pressure 110/56 L 105/61 122/69 H Blood Pressure Mean 74 75 86 Blood Pressure Source Monitor Monitor Monitor Blood Pressure Position Semi-Fowlers Supine Semi-Fowlers Blood Pressure Location Left Arm Left Arm Left Arm Pulse Ox 94 98 96 Oxygen Delivery Method Nasal Cannula Nasal Cannula Nasal Cannula Oxygen Flow Rate (L/min) 2 2 05/25/24 08:37 05/25/24 11:26 Temperature 97.7 F L Temperature Source Oral Pulse Rate 76 Pulse Strength Normal (2+) Respiratory Rate 17 Blood Pressure 129/75 H Blood Pressure Mean 93 Blood Pressure Source Monitor Blood Pressure Position Semi-Fowlers Blood Pressure Location Left Forearm Pulse Ox 96 Oxygen Delivery Method Room Air Oxygen Flow Rate (L/min) Weight Weight: 261 lb 7.492 oz Body Mass Index (BMI) 35.4 Physical Exam Narrative Narrative Fingers are warm well-perfused and splint is in place. They are in a flexed position with the wrist in slight extension. Hand is elevated. Const alert and oriented x3 General Appearance: cooperative HEENT normocephalic Eyes General Eye: normal appearance of both eyes Resp normal respiratory effort Effort and Inspection: able to speak in complete sentences Cardio regular rate Results Lab / Micro Data 05/24/24 06:19 Assessment & Plan Assessment/Plan (1) Hand trauma: PLAN: Plan PLAN: I reviewed the x-rays from yesterday. The PIP joint of the ring finger has an unstable P2 base fracture that is inadequately fixated with the K wires. I need revision of the PIP joint ring finger K wires, with the plan to put them through the joint to stabilize the fracture. I counseled the patient extensively about how his PIP joint of the ring finger will be very stiff, but that in the setting of a collateral ligament injury as well/the fracture pattern, I do not think a dynamic Ex-Fix or any other treatment with help him better than this option. I also believe that we can further revise the small finger fracture, and would benefit from another washout as the wound was previously dirty. I can then place cadaver bone chips more safely to improve fracture healing of P1 of the small finger, and revise the k wires. I talked to him about the placement of bone chips and the risks of infection. The patient understands the risks and benefits of the above-discussed surgical intervention today. I talked to him about continued finger salvage. 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 He agreed and would like to proceed. Again he understands the risk of hardware failure, need for repeat surgeries, failure to obtain the desired result, damage to surrounding structures, need for revision of the tendons or nerves, nonunion and need for potential bone grafting in the future.
--- NOTE | 2024-05-25 16:23 | NURSING ---
Pt was sleeping until close to 1600 when this RN went in to tell him and his family that surgery staff was coming up to get him to bring him down to surgery. Pt stated that he had no feeling in his Rt hand any longer. Pt states he just started having no feeling in that hand when he woke up. Pt kept his Rt arm/hand elevated on elevated pillow. This RN told transporter to let Dr. Parra know about that when they brought pt down.
--- NOTE | 2024-05-25 16:31 | PCM.PRE.AN2 ---
ASA Classification* ASA Classification ASA Classification: 2 Assessment & Plan Anesthesia* Anesthesia Assessment Anesthesia Assessment: Discussed sedation and/or anesthesia options, risks, benefits, and alternatives with patient/parents/legal guardian/POA. Questions invited. The patient/parents/legal guardian/POA seems to understand and agrees to proceed with anesthesia plan. Reviewed the physical assessment, medical history, allergy history and patient home medications list prior to surgery/procedure/anesthetic and documented any changes. Performed airway and anesthesia risk assessments. Anesthesia Type Anesthesia Type: General History Source History Obtained from:: Patient and Chart Anesthesia Focused Assessment* Temperature: 97.7 F Pulse Rate: 76 Blood Pressure: 129/75 Respiratory Rate: 17 Pulse Ox: 96 Oxygen Delivery Method: Room Air Airway Assessment Mouth opens: >3 cm Mallampati Score: III Teeth Condition: Intact Neck Range of motion (ROM): Full ROM Focused Labs Anesthesia Preop lab: CBC WBC 21.6 K/mm3 (4.4-11.0) H 05/24/24 06:19 RBC 4.44 M/mm3 (4.6-6.2) L 05/24/24 06:19 Hgb 13.6 g/dL (13.0-16.5) 05/24/24 06:19 Hct 41.2 % (40-54) 05/24/24 06:19 Plt Count 223 K/mm3 (150-450) 05/24/24 06:19 CHEMISTRY Potassium 4.1 mmol/L (3.5-5.1) 08/22/23 20:30 Sodium 140 mmol/L (136-145) 08/22/23 20:30 BUN 19 mg/dL (7-18) H 08/22/23 20:30 Creatinine 1.23 mg/dL (0.70-1.30) 08/22/23 20:30 Glucose 117 mg/dL (74-106) H 08/22/23 20:30 COAG PT 13.5 SECONDS (11.7-14.9) 08/22/23 20:30 Pre-Assessment Diagnosis/Proposed Procedure Planned Operative Procedure(s): Right Hand washout with bone chips. 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 When Was Last Pacemaker Check QUESTION #4 FULL TEXT: You/Your Family Experience fever (hyperthermia) with Anesthesia Last Oral Intake Last Oral intake: Last Oral Intake NPO since 08:00 05/25/24 11:26 Meds taken in AM with sips of No 05/25/24 11:26 water? 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 Female HX of Motion Sickness HX of N/V After Surgery Non-Smoker Duration of Surgery greater than 60 minutes Number of Risk Factors PONV Score Height & Weight Height & Weight: Anesthesia: Height & Weight Height 6 ft 0.05 in 05/25/24 11:26 Weight: 118.6 kg 05/25/24 11:26 Body Mass Index (BMI) 35.4 05/25/24 11:26 Respiratory Assessment Respiratory Assessment - regional company truck driver: Respiratory Tract Infection Hx - regional company truck driver Hx Respiratory Tract Infection No 05/23/24 16:26 STOP Sleep Apnea STOP Sleep Apnea - regional company truck driver: STOP Sleep Apnea - regional company truck driver Hx Hypertension No 05/23/24 16:26 Hx Sleep Apnea No 05/23/24 16:26 CPAP No 05/24/24 00:13 BIPAP Do you snore loudly (louder No 05/23/24 16:26 than talking or can be heard Do you often feel tired/ No 05/23/24 16:26 fatigued/ sleepy during daytime? Has anyone observed you stop No 05/23/24 16:26 breathing during sleep? STOP Results Negative 05/24/24 00:13 QUESTION #5 FULL TEXT : Do you snore loudly (louder than talking or can be heard through closed doors)? 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 Specify any problems Hx of Preganancy in last 3 Months Nurse Filling Out Transfusion & Questions: Date: Time: Patient unable to answer at this time (ie. confused, unrespo /Reproduction History /Reproductive History - regional company truck driver: /Reproductive Hx- regional company truck driver Hx Now No 05/23/24 16:26 Gestational Age (in weeks): EDC: Hx Hx Para Hx Section SAB Active Medications Active Medications: Current Medications Generic Name Dose Route Start Last Admin Trade Name Freq PRN Reason Stop Dose Admin Acetaminophen 1,000 mg 05/23/24 22:00 05/25/24 13:41 Acetaminophen 500 Mg Tablet PO Not Given Q8 ISABELLE Al Hydroxide/Mg Hydroxide 30 ml 05/23/24 17:10 Mag Hydrox/Al Hydrox/Simeth 30 Ml Udc PO Q6H PRN PRN Gastric Burning Docusate Sodium 100 mg 05/23/24 17:10 05/24/24 22:12 Docusate Sodium 100 Mg Capsule PO 100 mg BID PRN PRN Administration Constipation Enoxaparin Sodium 40 mg 05/24/24 10:00 05/25/24 08:20 Enoxaparin 40 Mg/0.4 Ml Syringe SC Not Given DAILY ISABELLE Hydromorphone HCl 0.5 - 1 mg 05/24/24 12:36 05/25/24 11:36 Hydromorphone 0.5 Mg/0.5 Ml Syringe IV 1 mg Q2H PRN PRN Administration Pain Score 7-10 Hydromorphone HCl 0.5 - 1 mg 05/24/24 12:45 05/25/24 13:40 Hydromorphone 1 Mg/Ml Syringe IV 1 mg Q2H PRN PRN Administration Pain Score 7-10 Sodium Chloride 100 mls @ 15 mls/hr 05/24/24 01:13 IV .Q6H40M PRN Saline Flush Sodium Chloride 100 mls @ 15 mls/hr 05/24/24 01:13 IV .Q6H40M PRN Additional IVPB Infusion Cefazolin Sodium 2 gm/ Sodium 110 mls @ 150 mls/hr 05/24/24 14:00 05/25/24 14:30 Chloride IV Infused Q8 ISABELLE Infusion Ketorolac Tromethamine 15 mg 05/24/24 13:49 05/25/24 08:20 Ketorolac 15 Mg/Ml Vial IV 05/29/24 12:35 15 mg Q6 PRN Administration Pain Score 1-10 Melatonin 3 mg 05/23/24 17:10 Melatonin 3 Mg Tablet PO QHS PRN PRN INSOMNIA Ondansetron HCl 4 mg 05/23/24 17:10 05/24/24 09:41 Ondansetron 4 Mg/2 Ml Vial IV 4 mg Q8H PRN PRN Administration NAUSEA/VOMITING Oxycodone HCl 5 - 10 mg 05/24/24 09:08 05/25/24 06:07 Oxycodone 5 Mg Tablet PO 10 mg Q4H PRN PRN Administration Pain Score 4-10 Sodium Chloride 10 - 40 ml 05/24/24 01:13 05/25/24 08:21 0.9% Saline Lock 10 Ml Syringe IV 10 ml UD PRN Administration SALINE FLUSH Throat Lozenges 1 lozenge 05/25/24 03:55 Benzocaine/Menthol 1 Lozenge MUCOUS MEM Q2H PRN PRN SORE THROAT PFSH Medical History Asthma Home Medications ?Medication ?Instructions ?Recorded ?Last Taken ?Type NK 05/23/24 Unknown History Allergy/AdvReac Type Severity Reaction Status Date / Time Penicillins Allergy Severe Swelling Verified 05/02/24 00:40 Family History Mother Thyroid disorder Surgical History Hx of appendectomy H/O wrist surgery Social History household members: significant other and children housing: apartment Smoking Status: Current every day smoker tobacco type: cigarettes Review of Systems (Anesthesia) ROS Narrative System reviewed and no additional complaints, except as documented.
--- NOTE | 2024-05-25 18:45 | RAD_ITS ---
STUDY: X-RAY - RIGHT HAND REASON FOR EXAM: Male, 28 years old. Pain. TECHNIQUE: 18 intraoperative C-arm fluoroscopic spot films of the right hand. COMPARISON: Right hand radiographs dated 05/24/2024. FINDINGS: The intraoperative spot films demonstrate realignment of surgical pins in the fourth middle phalanx and fifth proximal phalanx. The final images demonstrate 2 surgical pins realignment across the fourth PIP joint and 2 surgical pins aligned across the fifth MCP joint. The previously demonstrated 2 pins traversing the fracture of the first distal phalanx is not well shown. RAD/Hand Min 3 Views IMPRESSION: Realignment of surgical pins the fourth middle phalanx and fifth proximal phalanx. Electronically Signed: Bryan Campos MD at 8:28 EDT ,
[2024-05-25] MEDS: Bupivacaine 0.25% 30 ML Vial (20:15)
--- NOTE | 2024-05-25 20:37 | PCM.POST.ANE ---
Anesthesia: Postop Eval I Current Vital Signs Temperature: 100.1 F Pulse Rate: 118 Blood Pressure: 140/78 Respiratory Rate: 16 Pulse Ox: 93 Oxygen Delivery Method: Non-Rebreather Oxygen Flow Rate (L/min): 9 Assessment Airway patent: Yes Spontaneous unlabored respirations: Yes Mental status: Asleep nausea: No Vomiting: No Anesthesia Complication: No Fluid Hydration Crystalloid volume administer (ml): 600 Total IV fluid infused: 600 Progress Note Anesthesia document: Postop Eval 1 completed: Yes
[2024-05-26 00:01] VITALS: BP 131/62; PULSE 109; RESP 18; TEMP 37; O2SAT 95
[2024-05-26] MEDS: Ketorolac 15 MG/ML Vial IV (00:01)
[2024-05-26] MEDS: HYDROmorphone 1 MG/ML Syringe IV ×2 (00:02→02:51)
[2024-05-26 02:25] VITALS: BP 113/56; PULSE 79; RESP 18; TEMP 36.6; O2SAT 98
[2024-05-26] MEDS: Cefazolin 2 GM in 0.9% Normal Saline (100mL Bag) 100 ML IV ×2 (06:10→14:04)
[2024-05-26] MEDS: Acetaminophen 500 MG Tablet 1000 MG PO ×2 (06:10→14:05)
--- NOTE | 2024-05-26 07:38 | ANES.CONFIRM ---
Anesthesia: Confirm Documents Multiple Procedures on Account (2) Confirmed Documents: Yes
--- NOTE | 2024-05-26 07:44 | OP.PCM_ITS ---
Operative Report Date of Procedure: 05/25/24 Surgery/Procedure Date: 25 May 2024 incision/Procedure Start Time: 18:26 Incision Close/Procedure End Time: 20:20 (1 hour 54 minutes) PATIENT: Chemo Angel SURGEON: Masood Parra MD PUMP MECHANIC: Marielle Amos PRE-OPERATIVE DIAGNOSIS: Right hand trauma POST-OPERATIVE DIAGNOSIS: Same PROCEDURE PERFORMED: 1) Right ring finger middle phalanx base intra-articular fracture (PIP joint) closed reduction percutaneous pinning for revision of K wires, CPT: 72622 2) Right small finger proximal phalanx shaft fracture open reduction percutaneous pinning with addition of cadaver bone chips, CPT: 59294 OPERATIVE FINDINGS: * Intact tendon and nerve repairs following manipulation of the fingers after reduction via percutaneous pinning * No signs of infection INDICATIONS: Patient is a 28-year-old with a work-related injury on 23 May 2024 where he accidentally placed his hand 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 He was taken back to the operating room and I performed a repair of multiple structures, but discussed with the patient need for K wire revision based on postoperative x-rays. I discussed with him extensively my plan which was to immobilize the PIP joint of the ring finger for stabilization of the P2 base fracture, knowing full well that he will be very stiff in the PIP joint. He agreed with this and wanted to proceed. I also talked with him extensively about the severity of the small finger fracture and need for revision of the K wires with interposition cadaver bone chips (discussed risk of infection). He agreed to proceed. Understood that the small finger would be stiff as well. I talked to him about need for hand therapy and potential repeat operations for reconstruction. He understands the risks and benefits and alternatives of going forward with reconstruction and hand therapy. He wanted to proceed with digit salvage. OPERATIVE DETAILS: Patient was correctly identified in preoperative holding and taken back to the operating room where he was administered general anesthesia and prepped and draped in sterile fashion. His hand was again washed carefully and peroxide was applied. A timeout was performed. The K wires on the ring finger fracture were removed and the ring finger was re- reduced so as to realign as best as possible the PIP intra-articular fracture at the P2 base. I then placed two 0.035 K wires through the joint, one through the volar articular fragment and one through a dorsal ulnar articular fragment. This appeared stable and the decision was made to not place another K wire as there was concern that the fracture may further displace her comminute. The digit was in slight flexion. Attention was then turned to the small finger. The volar incisions were opened. The K wires were removed and revised with a 0.035 K wire and a 0.045 K wire through the MCP joint stabilizing the proximal P1 base fracture to the distal P1 bone. There was some gapping and therefore cadaver allograft bone chips were placed via the volar incision. The digit was pinned in slight flexion. C arm x-rays confirmed acceptable alignment at the end of the case. The small and ring finger stitches were then removed and the tendon and nerve repairs were examined since the bones had been manipulated. They were all intact. The small and ring finger wounds were then washed out with 1 L of normal saline each and closed with 3-0 nylon interrupted sutures. The patient was splinted in a dorsal blocking splint with slight flexion in a thumb spica component. He was awakened and taken the PACU in stable condition. The fingers are all warm and well-perfused. EBL: Minimal Anesthesia: General And 20 cc 0.25% plain Marcaine block at the end of the case ASA: 2 IVF: 400 cc of LR UOP: Unmeasured Transfusions: None Ancef for perioperative antibiotics POST-OPERATIVE PLAN: Admit overnight for pain control likely discharge tomorrow morning following infectious disease recommendations for home antibiotic regiment. Infectious diseases following and is recommended Ancef which has been carried out while he has been admitted to our service. We will continue to work on his pain control.
[2024-05-26 08:03] VITALS: O2SAT 95
[2024-05-26 09:58] VITALS: BP 111/67; PULSE 71; RESP 16; TEMP 36.7; O2SAT 99
[2024-05-26] MEDS: oxyCODONE 5 MG Tablet PO ×2 (10:11→14:20)
[2024-05-26] MEDS: Enoxaparin 40 MG/0.4 ML Syringe SC (10:12)
--- NOTE | 2024-05-26 10:16 | PCM.PN.ID ---
Physical Exam Narrative Feeling better, pain controlled, no fever, d/c planned Const alert and no apparent distress General Appearance: cooperative Resp normal air movement and clear to auscultation bilaterally Cardio regular rate and regular rhythm GI soft to palpation, non-tender and non-distended Skin Skin Narrative: hand wrapped ID ID: Route of nutrition/ use of supplements: [] Nutritional Intake: [] IV Site: [] Fisher Catheter: [] Assessment & Plan Assessment/Plan (1) Open fracture of finger of right hand: (2) Hand trauma: PLAN: Taken to OR emergently by Dr. Parra 05/23/24 for I&D and ORIF of R 1st, 4th, and 5th fingers after hand trauma at work. On cefazolin. H/o PCN allergy, no issues with cefazolin here. Ok for home on 5 more days keflex. Wrote rx. Will continue to follow prn
--- NOTE | 2024-05-26 11:12 | PCM.DC ---
Discharge Instructions Diet Discharge Diet: No restrictions (High protein diet to help with healing) Activity Discharge Activity: May Not Drive Lifting Restrictions: No right arm/hand lifting Keep extremity elevated above heart level: Operative Extremity and Right Arm Additional Activity Instructions:: May shower if right hand splint covered with plastic bag Dressing / Incision Call your doctor if your incision/area has: Continuous Slow Oozing, Sudden Increased Bleeding, Increased Pain/ Swelling, Increased Redness and Foul Smelling Discharge Call your doctor if you observe: Fever of 101 or Higher, Coldness, Increased Pain, Inability to have a bowel movement, Shortness of breath, Chest pain, Calf discomfort and Uncontrolled pain Follow Up Care Please Follow Up With: Masood Parra MD When: Thursday05/31/24 at 0945 at [facility]. [phone] Test Results: Test results from this visit will be discussed in further detail at your follow-up appointment, if applicable. Discharge Plan Admission Admit Date/Time: 05/23/24 17:06 Attending Provider: Masood Parra Primary Care Provider: Anne Contreras Consulting Providers: Masood Ramos Discharge Orders/Prescriptions Prescriptions: New cephalexin 500 mg capsule 500 mg PO TID Qty: 14 0RF gabapentin 300 mg capsule 300 mg PO BID 15 Days Qty: 30 0RF oxycodone 5 mg capsule 5 - 10 mg PO Q6H PRN (Reason: pain (scale score 7-10)) 7 Days Qty: 30 0RF ondansetron 4 mg tablet,disintegrating 4 mg PO Q8H PRN (Reason: nausea and vomiting) 5 Days Qty: 10 0RF Referrals / Follow Up: Anne Contreras MD [Primary Care Provider] - 06/16/24 12:30 pm (Appt is with Trip Guadalupe. Please be at appt at noon ) Masood Parra MD [Med Staff - Active Staff] - 05/31/24 9:45 am (This appointment is at [place] [address]) Disposition Disposition (needs filled in before D/C Order can be placed): Home, Self Care
--- NOTE | 2024-05-26 11:12 | CASEMGMT ---
JAYY PEREZ NOTE: Per Rena, LOAN SERVICES PROFESSIONAL, pt will discharge home today. Pt to f/u with Dr Aida Berry 05/31 @ 0945 @ [facility]. Pt to also keep splint/dsg in place until then and Dr Parra will address therapy w/pt at that time. JAYY PEREZ to room. Pt and sig other, Shobha, are aware and agreeable to this plan. Pt to discharge home on PO atb, which has been e-scribed to [facility]. Pt prefers to get this @ [facility] along with his other medications. Call placed to Orly in the pharmacy and she was made aware. Per pt, he received a call from Dr Contreras's office yesterday, stating they called him to cancel the appt with Jamaal tomorrow, stating Jamaal would not be in the office tomorrow. Call placed to Dr Contreras's office and they confirmed this, stating Jamaal would not be returning until Jun 16 and they do not have another provider that could see pt earlier to get established as a new pt. They also state it is not an option to do Hospital f/u visit earlier since pt is not established yet. The 1st available appt is Jun 16. Appt scheduled for Jun 16 @ 12:30 PM. DC plan updated and pt made aware. He states this would work fine, since he will be seeing Dr Parra for follow-up. Pt denies having other discharge needs/concerns. Robin MEEK RN, CM
--- NOTE | 2024-05-26 11:57 | PN.SURG_ITS ---
<Statement entered by Masood Parra MD - 05/26/24 17:33> Pt seen & evaluated w/CONCEPCION. I personally interviewed & exam the pt. I was involved in all aspects of pt's orders, interpretation of results & treatment Subjective Subjective Postop from 05/23/24 and 05/25/24. Patient states pain is controlled with oral pain medication. He states he has been keeping his hand elevated. He is would like to go home today. Objective Data Objective Data Vital Signs: Vital Signs Temp Pulse Resp BP Pulse Ox O2 Del Method O2 Flow Rate 98.1 F 71 16 111/67 99 Room Air 2 05/26/24 09:58 05/26/24 09:58 05/26/24 09:58 05/26/24 09:58 05/26/24 09:58 05/26/24 10:00 05/26/24 02:25 Oxygen Flow Rate (L/min) 2 Oxygen Delivery Method Room Air Weight: 261 lb 7.492 oz Body Mass Index (BMI) 35.4 Intake & Output: Intake and Output for Last 24 Hours 05/24/24 05/25/24 05/26/24 23:59 23:59 23:59 Intake Total 2380 / 2380 440 / 440 110 / 110 Output Total 1000 / 1000 Balance 1380 / 1380 440 / 440 110 / 110 Lab / Micro Data 05/24/24 06:19 Radiography Diagnostic Testing: Radiology Impression Hand X-Ray 05/25/24 18:45 IMPRESSION: Realignment of surgical pins the fourth middle phalanx and fifth proximal phalanx. Electronically Signed: Bryan Campos MD at 8:28 EDT , Physical Exam Narrative Right hand/forearm elevated on foam wedge. Right hand splint in place. Splint dry and intact. Fingers are warm to touch with capillary refill <2 seconds. Const alert, oriented x3 and no apparent distress General Appearance: cooperative HEENT normocephalic Eyes General Eye: normal appearance of both eyes Resp normal respiratory effort Effort and Inspection: able to speak in complete sentences Cardio regular rate Back/Spine normal ROM Neuro oriented x3 Psych thought process normal and cooperative Assessment & Plan Assessment/Plan (1) Open fracture of finger of right hand: (2) Digital nerve laceration, finger: (3) Tendon injury: (4) Hand trauma: PLAN: Plan Patient is doing well. His pain is well controlled with oral pain medication. We will plan on him being discharged home today. ID is consulted and he has prescribed Keflex for 5 additional days. For pain control at home will start him on Gabapentin 300 mg BID and Oxycodone 5-10 mg every 6 hours as needed. He will follow up with Dr. Parra on Thursday at 0945 at [facility]. Discussed plan of care with Dr. Parra.
--- NOTE | 2024-05-26 13:46 | WOUNDNOTE ---
In to assess the right hand with Dr Parra. SOCO wrap, splint and dressing at to remain intact. pt states pain has been improving. states there is some throbbing at times. pt is to be discharged home later today and will follow up with Dr Parra on Thursday at [facility]. pt very appreciative of care.
[2024-05-26 14:00] VITALS: BP 125/69; PULSE 81; RESP 17; TEMP 37.2; O2SAT 97
[2024-05-26] MEDS: 0.9% Saline Lock 10 ML Syringe IV (14:23)
--- NOTE | 2024-05-27 13:15 | PCM.DC.SUM ---
Providers Date of Admission: 05/23/24 Primary Care Physician: Dr. Anne Contreras MD Consultations 05/23/24 17:09 Consult: Onc/Wound/route sales representative Routine Comment: Reason for Consult:: Right hand traumatic wound 05/24/24 09:55 Consult: Infectious Disease Routine Consulting Provider: Masood Ramos Reason for Consult: Antibiotic management, rt hand trauma debris in bone EMERGENT Consult: No MD Notified: Yes Date Notified: 05/24/24 Time Notified: 09:55 Method of Notification: Verbal 05/24/24 09:58 Consult: Infectious Disease Routine Consulting Provider: Masood Ramos Reason for Consult: right hand trauma - infection EMERGENT Consult: No MD Notified: Yes Date Notified: 05/24/24 Time Notified: 09:58 Method of Notification: Verbal Reason For Visit: RT HAND MULTI TRAUMA Diagnosis Discharge Diagnosis (1) Open fracture of finger of right hand: Status: Acute Code(s): S62.609B - Fracture of unspecified phalanx of unspecified finger, initial encounter for open fracture (2) Digital nerve laceration, finger: Status: Acute Code(s): S64.40XA - Injury of digital nerve of unspecified finger, initial encounter (3) Tendon injury: Status: Acute (4) Hand trauma: Status: Acute Code(s): S69.90XA - Unspecified injury of unspecified wrist, hand and finger(s), initial encounter Plan PLAN: I reviewed the x-rays from yesterday. The PIP joint of the ring finger has an unstable P2 base fracture that is inadequately fixated with the K wires. I need revision of the PIP joint ring finger K wires, with the plan to put them through the joint to stabilize the fracture. I counseled the patient extensively about how his PIP joint of the ring finger will be very stiff, but that in the setting of a collateral ligament injury as well/the fracture pattern, I do not think a dynamic Ex-Fix or any other treatment with help him better than this option. I also believe that we can further revise the small finger fracture, and would benefit from another washout as the wound was previously dirty. I can then place cadaver bone chips more safely to improve fracture healing of P1 of the small finger, and revise the k wires. I talked to him about the placement of bone chips and the risks of infection. The patient understands the risks and benefits of the above-discussed surgical intervention today. I talked to him about continued finger salvage. 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 He agreed and would like to proceed. Again he understands the risk of hardware failure, need for repeat surgeries, failure to obtain the desired result, damage to surrounding structures, need for revision of the tendons or nerves, nonunion and need for potential bone grafting in the future. Medications at Discharge Home Medications cephalexin 500 mg capsule 500 mg PO TID #14 caps 05/26/24 gabapentin 300 mg capsule 300 mg PO BID 15 days #30 caps 05/26/24 ondansetron 4 mg disintegrating tablet 4 mg PO Q8H PRN nausea and vomiting 5 days #10 tabs 05/26/24 oxycodone 5 mg capsule 5 - 10 mg (1 - 2 x 5 mg) PO Q6H PRN pain (scale score 7-10) 7 days #30 caps 05/26/24 Hospital Course Operations - (Hand surgery x 2 ) Summary of Care Provided Hospital Course: Surgery/Procedure Date: 23 May 2024 Incision/Procedure Start Time: 18:51 Incision Close/Procedure End Time: 23:52 (5 hours, 1 minute) Tourniquet times: 19:56-20:34 (38 min) 22:04-23:34 (90 min) PATIENT: Chemo Angel SURGEON: Masood Parra MD BIOMASS POWER PLANT SUPERINTENDENT: Magdalene Taylor (held retractors and stabilized fingers during pinning) PRE-OPERATIVE DIAGNOSIS: Right hand trauma from radiator fan of fork lift POST-OPERATIVE DIAGNOSIS: same PROCEDURE PERFORMED: 1) Wash out of open distal phalanx fracture, right thumb (CPT 69212 ) 2) Open reduction percutaneous pinning of right thumb distal phalanx (CPT: 39660) 3) Nail bed repair, right thumb (CPT 44526) 4) Wash out of right ring finger (RRF) middle phalanx fracture (CP 06383) 5) Open reduction percutaneous pinning of RRF middle phalanx (P2) fracture (CPT: 94419) 6) Radial collateral ligament repair, right ring finger proximal interphalangeal (PIP) joint (CPT 78725) 7) Zone 2 Flexor digitorum profundus repair (FDP) of RRF (CP 08830) 8) Wash out of open proximal phalanx fracture, right small finger (RSF) proximal phalanx (P1), (CPT 88333) 9) Open reduction percutaneous pinning RSF P1 fracture (CPT: 09177) 10) Zone 2 Flexor digitorum profundus repair (FDP) of (CPT 84448) 11) Zone 2 Flexor digitorum superficialis repair (FDS), radial slip (CPT 46647) 12) Repair of extensor tendon, right small finger (CPT: 37881) 13) Radial digital nerve repair, RSF (CPT: 23141) 14) Simple repair of hand lacerations, 10 cm (CPT 65671) OPERATIVE FINDINGS: Severely comminuted fracture of the proximal phalanx of the right small finger with missing bone from the injury. Severely comminuted fracture of the middle phalanx base of the right ring finger. Radial collateral ligament injury with avulsion of the FDS insertions and avulsion of the A3 and 4 pulleys. Dirt in the wound INDICATIONS: Kadeem Angel is a 28-year-old male who presented to the emergency department today, 23 May 2024, after accidentally placing his hand in a radiator fan on a forklift. I talked to him extensively about finger salvage versus amputation and the alternatives and risks and benefits of surgery for reconstruction. I talked the patient extensively about the bleeding, infection, damage to surrounding structures, surgical site dehiscence and wound formation, need for wound care, need for repeat operations, failure to obtain the desired result, DVT/PE, and the risks of anesthesia including . All of their questions were answered, and they agreed to proceed with surgery. I discussed all risks, benefits, and alternatives. Surgery/Procedure Date: 25 May 2024 incision/Procedure Start Time: 18:26 Incision Close/Procedure End Time: 20:20 (1 hour 54 minutes) PATIENT: Chemo Angel SURGEON: Masood Parra MD BIOMASS POWER PLANT SUPERINTENDENT: Marielle Amos PRE-OPERATIVE DIAGNOSIS: Right hand trauma POST-OPERATIVE DIAGNOSIS: Same PROCEDURE PERFORMED: 1) Right ring finger middle phalanx base intra-articular fracture (PIP joint) closed reduction percutaneous pinning for revision of K wires, CPT: 61613 2) Right small finger proximal phalanx shaft fracture open reduction percutaneous pinning with addition of cadaver bone chips, CPT: 41356 OPERATIVE FINDINGS: Intact tendon and nerve repairs following manipulation of the fingers after reduction via percutaneous pinning No signs of infection INDICATIONS: Patient is a 28-year-old with a work-related injury on 23 May 2024 where he accidentally placed his hand 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 He was taken back to the operating room and I performed a repair of multiple structures, but discussed with the patient need for K wire revision based on postoperative x-rays. I discussed with him extensively my plan which was to immobilize the PIP joint of the ring finger for stabilization of the P2 base fracture, knowing full well that he will be very stiff in the PIP joint. He agreed with this and wanted to proceed. I also talked with him extensively about the severity of the small finger fracture and need for revision of the K wires with interposition cadaver bone chips (discussed risk of infection). He agreed to proceed. Understood that the small finger would be stiff as well. I talked to him about need for hand therapy and potential repeat operations for reconstruction. He understands the risks and benefits and alternatives of going forward with reconstruction and hand therapy. He wanted to proceed with digit salvage. Hospital Course: Patient underwent above-noted surgeries during his hospital course. He was admitted on 23 May 2020 for following up for surgery for pain control and infectious disease consultation. Infectious disease recommended Ancef while in house and 5 days of Keflex upon the day of discharge which was 26 May 2024. Patient's pain was under control on the day of discharge and he was discharged home with pain medication and the Keflex with follow-up on 31 May 2024 with me. Physical Exam Narrative Narrative Right hand/forearm elevated on foam wedge. Right hand splint in place. Splint dry and intact. Fingers are warm to touch with capillary refill <2 seconds. Const alert, oriented x3 and no apparent distress General Appearance: cooperative HEENT normocephalic Eyes General Eye: normal appearance of both eyes Resp normal respiratory effort Effort and Inspection: able to speak in complete sentences Cardio regular rate Back/Spine normal ROM Neuro oriented x3 Psych thought process normal and cooperative Weight / BMI Weight Weight: 261 lb 7.492 oz Body Mass Index (BMI) 35.4 ABG / Lab / Microbiology Data 05/24/24 06:19 D/C Instructions Discharge Diet: No restrictions (High protein diet to help with healing) Keep extremity elevated above heart level: Operative Extremity and Right Arm Additional Activity Instructions: May shower if right hand splint covered with plastic bag Call your doctor if your incision/area has: Continuous Slow Oozing, Sudden Increased Bleeding, Increased Pain/ Swelling, Increased Redness and Foul Smelling Discharge Call your doctor if you observe: Fever of 101 or Higher, Coldness, Increased Pain, Inability to have a bowel movement, Shortness of breath, Chest pain, Calf discomfort and Uncontrolled pain Please Follow Up With: Masood Parra MD When: Thursday05/31/24 at 0945 at [facility]. [phone] Meaningful Use Info Meaningful Use Meaningful Use Diagnoses (Choose all that apply): None applicable Ischemic Stroke Statin Dosing Therapy Reference: STATIN DOSE THERAPY REFERENCE: * Patients > 75 years receive moderate or high dose statin therapy. * Patients 75 years or YOUNGER should receive HIGH intensity statin dose unless contraindicated. You will be required to document reason for non-treatment if statin daily dose does not meet guidelines. HIGH DOSE STATIN THERAPY DAILY Atorvastatin > than or = to 40 mg Rosuvastatin > than or = to 20 mg Amlodipine + Atorvastatin > than or = to 2.5/40 mg Ezetimibe + Simvastatin 10/80 mg Simvastatin 80mg Discharge Plan Admission Admit Date/Time: 05/23/24 17:06 Attending Provider: Masood Parra Primary Care Provider: Anne Contreras Consulting Providers: Masood Ramos Discharge Orders/Prescriptions Prescriptions: New cephalexin 500 mg capsule 500 mg PO TID Qty: 14 0RF gabapentin 300 mg capsule 300 mg PO BID 15 Days Qty: 30 0RF oxycodone 5 mg capsule 5 - 10 mg PO Q6H PRN (Reason: pain (scale score 7-10)) 7 Days Qty: 30 0RF ondansetron 4 mg tablet,disintegrating 4 mg PO Q8H PRN (Reason: nausea and vomiting) 5 Days Qty: 10 0RF Referrals / Follow Up: Anne Contreras MD [Primary Care Provider] - 06/16/24 12:30 pm (Appt is with Trip Guadalupe. Please be at appt at noon ) Masood Parra MD [Med Staff - Active Staff] - 05/31/24 9:45 am (This appointment is at [facility]. [address], [place] [facility] [address]) Disposition Disposition (needs filled in before D/C Order can be placed): Home, Self Care
== END 2024-05-26 16:26 | disposition home or self-care (01) | DRG 316 ==
LOC: ED 15:57 → SDC 16:13 → AC 16:14 → MS3 05-24 02:12 → SDC 05-24 02:12 → MS3 05-24 02:12
PROVIDERS: Nurse Practitioner Family; Admitting Provider Surgery Plastic and Reconstructive Surgery; Emergency Provider Emergency Medicine; PCP Internal Medicine; Referring Provider Emergency Medicine; Visit Provider Surgery Plastic and Reconstructive Surgery
DX: S62.524B Nondisplaced fracture of distal phalanx of right thumb, initial encounter for open fracture (principal); F17.210 Nicotine dependence, cigarettes, uncomplicated; J45.909 Unspecified asthma, uncomplicated; S66.326A Laceration of extensor muscle, fascia and tendon of right little finger at wrist and hand level, initial encounter; S62.622B Displaced fracture of middle phalanx of right middle finger, initial encounter for open fracture; S62.616B Displaced fracture of proximal phalanx of right little finger, initial encounter for open fracture; S66.126A Laceration of flexor muscle, fascia and tendon of right little finger at wrist and hand level, initial encounter; S64.496A Injury of digital nerve of right little finger, initial encounter; W24.0XXA Contact with lifting devices, not elsewhere classified, initial encounter; Y99.0 Civilian activity done for income or pay; Z23 Encounter for immunization
CPT/HCPCS: 36415; 73130; 76000; 85025; 90715; 94640; 97802; 99284; J7030; J7120; A4216; J2405

== ENCOUNTER → 2024-06-02 | Outpatient (CLI) | payer MEDICAID, SELFPAY ==
--- NOTE | 2024-06-02 14:50 | RAD_ITS ---
STUDY: X-RAY - RIGHT HAND REASON FOR EXAM: Male, 28 years old. Fall after cast and pins being placed TECHNIQUE: 4 views of the right hand. COMPARISON: Right hand radiographs dated 05/31/2024. FINDINGS: Normal radiocarpal articulation. Normal distal radioulnar joint. Normal visualized carpal bones. Normal carpal articulations Normal carpometacarpal articulation of the thumb. Normal second through fifth carpometacarpal joints. Intact metacarpi. Again seen are 2 surgical pins in the fourth proximal and middle phalanges across the fourth PIP joint. Again seen are 2 surgical pins in the fifth finger across the fifth MCP joint. Again seen are 2 pins traversing the fracture of the first distal phalanx. Again seen is a metallic BB in the anterior soft tissues of the distal forearm. RAD/Hand Min 3 Views IMPRESSION: No significant interval change compared to the prior right hand radiographs dated 05/31/2024. Electronically Signed: Bryan Campos MD at 15:57 EDT ,
== END | disposition home or self-care (01) ==
PROVIDERS: PCP Internal Medicine; Referring Provider Nurse Practitioner Family; Visit Provider Nurse Practitioner Family
DX: S62.609B Fracture of unspecified phalanx of unspecified finger, initial encounter for open fracture (principal); S64.40XA Injury of digital nerve of unspecified finger, initial encounter; S69.90XA Unspecified injury of unspecified wrist, hand and finger(s), initial encounter; X58.XXXA Exposure to other specified factors, initial encounter
CPT/HCPCS: 73130

== ENCOUNTER 2024-07-05 11:43 | Day surgery (SDC) | payer MEDICAID, SELFPAY ==
[2024-07-05] VITALS (7 sets, daily range): BP systolic 122–154; BP diastolic 72–91; PULSE 67–102; RESP 14–18; TEMP 35.9–36.6; O2SAT 94–98; BMI 34.9
--- NOTE | 2024-07-05 12:30 | RAD_ITS ---
INDICATION: RT HAND HARDWARE REMOVAL EXAMINATION/TECHNIQUE: X-RAY - RIGHT XR Hand 2 Views 11 VIEWS COMPARISON: Right hand series 06/28/2024 FINDINGS: 11 intraoperative fluoroscopic spot films were obtained during removal of orthopedic hardware from the right hand. For details please refer to the operative report. Total fluoroscopic time 1 minute 47 seconds. RAD/Hand 2 Views IMPRESSION: Intraoperative spot films for hardware removal right hand. Electronically Signed: Newton Carter MD at 20:36 EST ,
--- NOTE | 2024-07-05 12:30 | PCM.PRE.AN2 ---
ASA Classification* ASA Classification ASA Classification: 2 Assessment & Plan Anesthesia* Anesthesia Assessment Anesthesia Assessment: Discussed sedation and/or anesthesia options, risks, benefits, and alternatives with patient/parents/legal guardian/POA. Questions invited. The patient/parents/legal guardian/POA seems to understand and agrees to proceed with anesthesia plan. Reviewed the physical assessment, medical history, allergy history and patient home medications list prior to surgery/procedure/anesthetic and documented any changes. Performed airway and anesthesia risk assessments. Anesthesia Type Anesthesia Type: MAC (see written pre anesthesia record for full assessment) Anesthesia Focused Assessment* Temperature: 97.8 F Pulse Rate: 67 Blood Pressure: 127/72 Respiratory Rate: 16 Pulse Ox: 98 Airway Assessment Mouth opens: >3 cm Mallampati Score: II Focused Labs Anesthesia Preop lab: CBC WBC 21.6 K/mm3 (4.4-11.0) H 05/24/24 06:19 RBC 4.44 M/mm3 (4.6-6.2) L 05/24/24 06:19 Hgb 13.6 g/dL (13.0-16.5) 05/24/24 06:19 Hct 41.2 % (40-54) 05/24/24 06:19 Plt Count 223 K/mm3 (150-450) 05/24/24 06:19 CHEMISTRY Potassium 4.1 mmol/L (3.5-5.1) 08/22/23 20:30 Sodium 140 mmol/L (136-145) 08/22/23 20:30 BUN 19 mg/dL (7-18) H 08/22/23 20:30 Creatinine 1.23 mg/dL (0.70-1.30) 08/22/23 20:30 Glucose 117 mg/dL (74-106) H 08/22/23 20:30 COAG PT 13.5 SECONDS (11.7-14.9) 08/22/23 20:30 Pre-Assessment Diagnosis/Proposed Procedure Planned Operative Procedure(s): hardware remov from R hand Anesthesia History 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 When Was Last Pacemaker Check QUESTION #4 FULL TEXT: You/Your Family Experience fever (hyperthermia) with Anesthesia Last Oral Intake Last Oral intake: Last Oral Intake NPO since Meds taken in AM with sips of water? Meds patient instructed to take am of surgery PONV PONV - facing machine operator: PONV - facing machine operator Female No 07/01/24 11:30 HX of Motion Sickness No 07/01/24 11:30 HX of N/V After Surgery No 07/01/24 11:30 Non-Smoker No 07/01/24 11:30 Duration of Surgery greater Yes 07/01/24 11:30 than 60 minutes Number of Risk Factors 1 07/01/24 11:30 PONV Score Low Risk 07/01/24 11:30 Height & Weight Height & Weight: Anesthesia: Height & Weight Height 6 ft 07/05/24 12:12 Weight: 117.1 kg 07/05/24 12:12 Body Mass Index (BMI) 34.9 07/05/24 12:12 Respiratory Assessment Respiratory Assessment - facing machine operator: Respiratory Tract Infection Hx - facing machine operator Hx Respiratory Tract Infection No 07/01/24 11:30 STOP Sleep Apnea STOP Sleep Apnea - facing machine operator: STOP Sleep Apnea - facing machine operator Hx Hypertension No 07/01/24 11:30 Hx Sleep Apnea No 07/01/24 11:30 CPAP No 07/01/24 11:30 BIPAP Do you snore loudly (louder Yes 07/01/24 11:30 than talking or can be heard Do you often feel tired/ No 07/01/24 11:30 fatigued/ sleepy during daytime? Has anyone observed you stop No 07/01/24 11:30 breathing during sleep? STOP Results Negative 07/01/24 11:30 QUESTION #5 FULL TEXT : Do you snore loudly (louder than talking or can be heard through closed doors)? 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 Specify any problems Hx of Preganancy in last 3 N/A 07/01/24 11:30 Months Nurse Filling Out Transfusion DSCHRIBER 07/01/24 11:30 & Questions: Date: 07/01/24 07/01/24 11:30 Time: 11:31 07/01/24 11:30 Patient unable to answer at this time (ie. confused, unrespo /Reproduction History /Reproductive History - facing machine operator: /Reproductive Hx- facing machine operator Hx Now No 07/01/24 11:30 Gestational Age (in weeks): EDC: Hx Hx Para Hx Section SAB No 07/01/24 11:30 Active Medications Active Medications: Current Medications Generic Name Dose Route Start Last Admin Trade Name Freq PRN Reason Stop Dose Admin Clindamycin Phosphate 900 mg in 50 mls @ 75 mls/hr 07/05/24 13:30 Cleocin IV 07/05/24 14:09 PREOP [facility] Medical History Wears glasses Back pain Heartburn Vapes nicotine containing substance Hx of hypospadias Asthma Home Medications ?Medication ?Instructions ?Recorded ?Last Taken ?Type acetaminophen 500 mg tablet 1,000 mg PO Q8H PRN PRN pain 06/14/24 Unknown History (Tylenol Extra Strength) Allergy/AdvReac Type Severity Reaction Status Date / Time Penicillins Allergy Severe Swelling Verified 07/05/24 12:11 Family History Mother Thyroid disorder Surgical History (Updated 07/01/24 @ 11:35 by Padmini Treviño) Hx of hand surgery Hx of appendectomy H/O wrist surgery Social History household members: significant other and children housing: apartment current occupational status: employed 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
--- NOTE | 2024-07-05 13:14 | HP.PCM_ITS ---
HPI - General HPI Narrative 23 May 2024: PRE-OPERATIVE DIAGNOSIS: Right hand trauma from radiator fan of fork lift POST-OPERATIVE DIAGNOSIS: same PROCEDURE PERFORMED: 1) Wash out of open distal phalanx fracture, right thumb (CPT 45445 ) 2) Open reduction percutaneous pinning of right thumb distal phalanx (CPT: 53214) 3) Nail bed repair, right thumb (CPT 27591) 4) Wash out of right ring finger (RRF) middle phalanx fracture (CP 03857) 5) Open reduction percutaneous pinning of RRF middle phalanx (P2) fracture (CPT: 17515) 6) Radial collateral ligament repair, right ring finger proximal interphalangeal (PIP) joint (CPT 43167) 7) Zone 2 Flexor digitorum profundus repair (FDP) of RRF (CP 67627) 8) Wash out of open proximal phalanx fracture, right small finger (RSF) proximal phalanx (P1), (CPT 22715) 9) Open reduction percutaneous pinning RSF P1 fracture (CPT: 76629) 10) Zone 2 Flexor digitorum profundus repair (FDP) of (CPT 91725) 11) Zone 2 Flexor digitorum superficialis repair (FDS), radial slip (CPT 00972) 12) Repair of extensor tendon, right small finger (CPT: 67544) 13) Radial digital nerve repair, RSF (CPT: 26666) 14) Simple repair of hand lacerations, 10 cm (CPT 02477) OPERATIVE FINDINGS: * Severely comminuted fracture of the proximal phalanx of the right small finger with missing bone from the injury. * Severely comminuted fracture of the middle phalanx base of the right ring finger. Radial collateral ligament injury with avulsion of the FDS insertions and avulsion of the A3 and 4 pulleys. * Dirt in the woundINDICATIONS: Kadeem Herrera is a 28-year-old male who presented to the emergency department today, 23 May 2024, after accidentally placing his hand in a radiator fan on a forklift. I talked to him extensively about finger salvage versus amputation and the alternatives and risks and benefits of surgery for reconstruction. I talked the patient extensively about the bleeding, infection, damage to surrounding structures, surgical site dehiscence and wound formation, need for wound care, need for repeat operations, failure to obtain the desired result, DVT/PE, and the risks of anesthesia including . All of their questions were answered, and they agreed to proceed with surgery. I discussed all risks, benefits, and alternatives. 25 May 2024 PATIENT: Carlyle Herrera SURGEON: Masood Parra MD HEALTH EQUIPMENT SERVICER: Marielle Amos PRE-OPERATIVE DIAGNOSIS: Right hand trauma POST-OPERATIVE DIAGNOSIS: Same PROCEDURE PERFORMED: 1) Right ring finger middle phalanx base intra-articular fracture (PIP joint) closed reduction percutaneous pinning for revision of K wires, CPT: 73018 2) Right small finger proximal phalanx shaft fracture open reduction percutaneous pinning with addition of cadaver bone chips, CPT: 03046 OPERATIVE FINDINGS: * Intact tendon and nerve repairs following manipulation of the fingers after reduction via percutaneous pinning * No signs of infectionINDICATIONS: Patient is a 28-year-old with a work-related injury on 23 May 2024 where he accidentally placed his hand 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 He was taken back to the operating room and I performed a repair of multiple structures, but discussed with the patient need for K wire revision based on postoperative x-rays. I discussed with him extensively my plan which was to immobilize the PIP joint of the ring finger for stabilization of the P2 base fracture, knowing full well that he will be very stiff in the PIP joint. He agreed with this and wanted to proceed. I also talked with him extensively about the severity of the small finger fracture and need for revision of the K wires with interposition cadaver bone chips (discussed risk of infection). He agreed to proceed. Understood that the small finger would be stiff as well. I talked to him about need for hand therapy and potential repeat operations for reconstruction. He understands the risks and benefits and alternatives of going forward with reconstruction and hand therapy. He wanted to proceed with digit salvage. Hospital Course: Patient underwent above-noted surgeries during his hospital course. He was admitted on 23 May 2020 for following up for surgery for pain control and infectious disease consultation. Infectious disease recommended Ancef while in house and 5 days of Keflex upon the day of discharge which was 26 May 2024. Patient's pain was under control on the day of discharge and he was discharged home with pain medication and the Keflex with follow-up on 31 May 2024 with me. 31 May 2024: Doing well today overall. Some pain from hand, but controlled with PO medications and elevation. No fevers/chills. 07 Jun 2024: Pain under better control now since he saw our nurse practitioner and myself late last week after falling in the shower. His cast was removed and an x-ray taken and there was acceptable pin site alignment and no substantial changes identified. Today he denies any fevers or chills or any signs of infection. He is completing antibiotic course per infectious disease for prophylaxis (5 days of Keflex following discharge). 14 Jun 2024: Patient reports that the cast is too tight. Reports that it was tight on his hand on the ulnar side of his wrist and requested to be removed today. No fevers or chills 21 Jun 2024: Doing well overall. He has been complaint with OT splinting at all times. Reports improved pain control (2/10 dull steady pain). 28 Jun 2024: Doing well. No pain over thumb or ring, but persistent pain still at base of the small finger. Still smoking (discussed cessation and wound healing). CURRENT ENCOUNTER, 05 Jul 2024: CARLYLE HERRERA is a 28 M who presents today for pin removal. NO PAIN in the thumb or the proximal phalanx of the small finger. No pain the ring finger since removal of the pin. No sensations of shifting/displacement during hand therapy. [facility] Medical History Wears glasses Back pain Heartburn Vapes nicotine containing substance Hx of hypospadias Asthma Home Medications ?Medication ?Instructions ?Recorded ?Last Taken ?Type acetaminophen 500 mg tablet 1,000 mg PO Q8H PRN PRN pain 06/14/24 Unknown History (Tylenol Extra Strength) Allergy/AdvReac Type Severity Reaction Status Date / Time Penicillins Allergy Severe Swelling Verified 07/05/24 12:11 Family History Mother Thyroid disorder Surgical History (Updated 07/01/24 @ 11:35 by Padmini Treviño) Hx of hand surgery Hx of appendectomy H/O wrist surgery Social History household members: significant other and children housing: apartment current occupational status: employed 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 Smoking Status: Current every day smoker tobacco type: cigarettes and e- cigarettes alcohol intake: never substance use type: does not use what type of physical activity do you participate in: none seatbelt use: always do you feel safe at home: Yes Vital Signs Vital Signs Vital Signs: 07/05/24 12:12 07/05/24 12:12 07/05/24 12:30 Temperature 97.8 F 97.8 F Temperature Source Temporal Pulse Rate 67 67 Respiratory Rate 16 16 Respiratory Pattern Normal Blood Pressure 127/72 H 127/72 H Blood Pressure Mean 90 Blood Pressure Source Monitor Blood Pressure Position Semi-Fowlers Blood Pressure Location Left Arm Pulse Ox 98 98 Oxygen Delivery Method Room Air Weight Weight: 258 lb 2.581 oz Body Mass Index (BMI) 34.9 Physical Exam Narrative Right upper extremity examined Inspection: Pin sites healthy, no signs of drainage/infection. Have healed without any significant tissue necrosis except some partial-thickness eschar over the tip of the ring finger. Palpation: No TTP over thumb or on the ring finger fracture sites. No tenderness over P1 of small finger. Motor: Able to bend and extend thumb, index and long fingers. Vascular: Fingers are warm and well perfused. Assessment & Plan Assessment/Plan (1) Open fracture of finger of right hand: (2) Digital nerve laceration, finger: PLAN: Plan Plan for pin removal today from the right thumb and the right small finger, as well as debridement of ring finger eschar. Patient in agreement with plan and understands the risks, benefits and alternatives to today's procedure (discussed) and would like to proceed. Understands risks of loss of fracture reduction/bony fixation. INTERVAL H&P PLAN, DATE OF SURGERY: We will proceed with surgery today.
[2024-07-05] MEDS: Clindamycin 900 MG/50 ML BAG 75 MG IV (13:55)
[2024-07-05] MEDS: Lidocaine 1% /Epi 1:100 (20ml) 20 ML Vial (14:10)
--- NOTE | 2024-07-05 14:34 | PCM.POST.ANE ---
Anesthesia: Postop Eval I Current Vital Signs Temperature: 97 F Pulse Rate: 102 Blood Pressure: 154/91 Respiratory Rate: 18 Pulse Ox: 94 Oxygen Delivery Method: Room Air Assessment Airway patent: Yes Spontaneous unlabored respirations: Yes Mental status: Awake and Calm nausea: No Vomiting: No Anesthesia Complication: No Fluid Hydration Crystalloid volume administer (ml): 300 Total IV fluid infused: 300 Progress Note Anesthesia document: Postop Eval 1 completed: Yes
[2024-07-05] MEDS: Lactated Ringers 1,000 ML 15 ML IV (14:53)
--- NOTE | 2024-07-05 15:27 | POSTOPAN2_ITS ---
Anesthesia Postop Eval I Sum Postop Eval Completion status Anesthesia document: Postop Eval 1 completed: Yes Anesthesia Postop Eval I Summary Anesthesia Postop Eval I Summary: Anesthesia Postop Eval I: Assessment Summary Airway patent Yes 07/05/24 14:35 MEDICAL RECORDS [email or web address] Spontaneous unlabored Yes 07/05/24 14:35 MEDICAL RECORDS [email or web address] respirations Mental status Awake,Calm 07/05/24 14:35 MEDICAL RECORDS [email or web address].[email or web address] nausea No 07/05/24 14:35 MEDICAL RECORDS AUDITOR.[email or web address] Vomiting No 07/05/24 14:35 MEDICAL RECORDS AUDITOR.[email or web address] Anesthesia Postop Eval I: Fluid Summary Crystalloid volume administer 300 07/05/24 14:35 MEDICAL RECORDS AUDITOR.[email or web address] (ml) Colloids volume administered ( ml) Blood Product volume administered (ml) Total IV fluid infused 300 07/05/24 14:35 MEDICAL RECORDS AUDITOR.[email or web address] Anesthesia Postop Eval I: Summary Notes Anesthesia Complication No 07/05/24 14:35 MEDICAL RECORDS [email or web address].[email or web address] Anesthesia Complication Comment: Post-operative progress note Anesthesia: Postop Eval II Evaluation Mental status: Awake Pain Level: 0 nausea: No Vomiting: No
--- NOTE | 2024-07-05 15:27 | PCM.POSTANE2 ---
Anesthesia Postop Eval I Sum Postop Eval Completion status Anesthesia document: Postop Eval 1 completed: Yes Anesthesia Postop Eval I Summary Anesthesia Postop Eval I Summary: Anesthesia Postop Eval I: Assessment Summary Airway patent Yes 07/05/24 14:35 GREASE [email or web address].[email or web address] Spontaneous unlabored Yes 07/05/24 14:35 GREASE [email or web address].GDOTT respirations Mental status Awake,Calm 07/05/24 14:35 GREASE [email or web address].[email or web address] nausea No 07/05/24 14:35 GREASE [email or web address].GDOTT Vomiting No 07/05/24 14:35 GREASE [email or web address].[email or web address] Anesthesia Postop Eval I: Fluid Summary Crystalloid volume administer 300 07/05/24 14:35 GREASE [email or web address].GDOTT (ml) Colloids volume administered ( ml) Blood Product volume administered (ml) Total IV fluid infused 300 07/05/24 14:35 GREASE [email or web address].GDOTT Anesthesia Postop Eval I: Summary Notes Anesthesia Complication No 07/05/24 14:35 GREASE [email or web address].GDOTT Anesthesia Complication Comment: Post-operative progress note Anesthesia: Postop Eval II Evaluation Mental status: Awake Pain Level: 0 nausea: No Vomiting: No
--- NOTE | 2024-07-06 06:55 | OP.PCM_ITS ---
Operative Report (Standard) Operative Information Surgery/Procedure Performed: 1) Hardware removal (pins) from right thumb distal phalanx and right small finger proximal phalanx, CPT 12933 2) Excision of ring finger tip wound, 1 x 1 cm, CPT 28089 Surgeon: Masood Parra Date of Procedure: 07/05/24 Procedure Start Time: 14:10 Procedure Stop Time: 14:25 Pre-Operative Diagnosis: Right hand trauma s/p percutaneous pinning Post-Operative Diagnosis: Same Select all DRAINS/GRAFTS/IMPLANTS that apply: None Type of Anesthesia: MAC/Supplemental (5 cc of 1% lidocaine without epinephrine) Estimated Blood Loss: minimal Fluids Replaced: 30 cc LR Specimen collected: No Description of surgery: INDICATIONS: Patient is a 28-year-old with a work-related injury on 23 May 2024 where he accidentally placed his hand 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 He is 6 weeks out from his injury and here for pin removal from the thumb and the small finger. He has begun hand therapy for the ring finger flexor tendon injuries after pin removal for fracture last week. His small finger is no longer tender to palpation and therefore believe it is ready for pin removal. PROCEDURE DETAILS: Patient was correct identified in preoperative holding and taken back to the operating room where he was administered sedation and local. He was prepped and draped in sterile fashion and all proper timeouts were performed. The mini C arm was used to assess the fractures, please note the below operative findings. The pins were removed without difficulty. Attention was then turned to the ring finger tip wound, which was excised with a 15 blade scalpel down to healthy subcutaneous tissue for a 1 x 1 cm sharp excision. Hemostasis was obtained with pressure. Xeroform was applied, followed by his removable splint from OT. Postoperative plan: Patient will follow-up with hand therapy tomorrow to continue exercises for flexor tendon therapy/protocol. Follow-up with me in 1 week for repeat x-rays to check progress of fracture healing in the setting of continued hand therapy. XF changes BID to finger tip wound. No use of the hand other than for therapy. 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
== END 2024-07-05 15:24 | disposition home or self-care (01) ==
LOC: SDC 11:43 → AC 11:45
PROVIDERS: PCP Internal Medicine; Referring Provider Surgery Plastic and Reconstructive Surgery; Visit Provider Surgery Plastic and Reconstructive Surgery
PROC: (CPT 20670; principal; 2024-07-05 13:15)
DX: S62.521D Displaced fracture of distal phalanx of right thumb, subsequent encounter for fracture with routine healing (principal); S62.616D Displaced fracture of proximal phalanx of right little finger, subsequent encounter for fracture with routine healing; S62.624D Displaced fracture of middle phalanx of right ring finger, subsequent encounter for fracture with routine healing; W31.89XD Contact with other specified machinery, subsequent encounter; J45.909 Unspecified asthma, uncomplicated; F17.210 Nicotine dependence, cigarettes, uncomplicated; F17.290 Nicotine dependence, other tobacco product, uncomplicated
CPT/HCPCS: 20670 ×2; 11042; 01820; 73120; 76000; A4216

== ENCOUNTER → 2024-07-19 | Outpatient (CLI) | payer MEDICAID, SELFPAY ==
--- NOTE | 2024-07-19 13:54 | RAD_ITS ---
STUDY: X-RAY - RIGHT HAND, ATTENTION RING FINGER REASON FOR EXAM: Male, 28 years old. Fall after cast in place -- right ring finger. TECHNIQUE: 3 views of the right ring finger were obtained. COMPARISON: Right ring finger radiographs dated 07/12/2024. FINDINGS: There is unchanged appearance of the healing fracture of the base of the fourth middle phalanx. There is a unchanged appearance of the healing fracture of the base of the proximal phalanx of the fifth finger. Normal visualized third finger. RAD/Finger(s) Min 2 Views IMPRESSION: Unchanged appearance of the healing fracture of the base of the fourth middle phalanx. Unchanged appearance of the healing fracture of the base of the proximal phalanx of the fifth finger. Electronically Signed: Bryan Campos MD at 15:43 EST ,
--- NOTE | 2024-07-19 13:54 | RAD_ITS ---
STUDY: X-RAY - RIGHT HAND REASON FOR EXAM: Male, 28 years old. Right hand fracture follow up/increased pain. TECHNIQUE: 3 views of the right hand. COMPARISON: Right hand radiographs dated 07/12/2024. FINDINGS: Normal radiocarpal articulation. Normal distal radioulnar joint. Normal visualized carpal bones. Normal carpal articulations. Normal carpometacarpal articulation of the thumb. Normal second through fifth carpometacarpal joints. Normal metacarpi. Normal metacarpophalangeal joint of the thumb. Normal interphalangeal joint of the thumb. Normal proximal phalanx of the thumb. There is a healed fracture of the distal phalanx of the thumb. Normal metacarpophalangeal joints of the second through fifth fingers. There is unchanged appearance of the healing fracture of the base of the fourth middle phalanx. There is a unchanged appearance of the healing fracture of the base of the proximal phalanx of the fifth finger. The soft tissue structures are unremarkable. RAD/Hand Min 3 Views IMPRESSION: Unchanged appearance of the healing fracture of the base of the fourth middle phalanx. Unchanged appearance of the healing fracture of the base of the proximal phalanx of the fifth finger. Healed fracture of the distal phalanx of the thumb. Electronically Signed: Bryan Campos MD at 15:40 EST ,
== END | disposition home or self-care (01) ==
LOC: RAD 13:52
PROVIDERS: PCP Internal Medicine; Referring Provider Nurse Practitioner Family; Visit Provider Nurse Practitioner Family
DX: S62.209 Unspecified fracture of first metacarpal bone, unspecified hand (principal); S69.90XA Unspecified injury of unspecified wrist, hand and finger(s), initial encounter; S64.40XA Injury of digital nerve of unspecified finger, initial encounter; X58.XXXA Exposure to other specified factors, initial encounter
CPT/HCPCS: 73130; 73140

== ENCOUNTER → 2024-07-21 | Outpatient (CLI) | payer MEDICAID, SELFPAY ==
--- NOTE | 2024-07-21 18:43 | CT_ITS ---
EXAM: CT RIGHT UPPER EXTREMITY WITHOUT INTRAVENOUS CONTRAST, HAND CLINICAL INDICATION: increased pain right small finger -- trauma 05/23/24 TECHNIQUE: Helically acquired images were obtained of the right hand without intravenous contrast. This CT exam was performed using one or more of the following dose reduction techniques: automated exposure control, adjustment of the mA and/or kV according to patient size, and/or use of iterative reconstruction technique. RADIATION DOSE: CTDIvol = 24.58 mGy, DLP = 634.36 mGy-cm COMPARISON: July 19, 2024, July 12, 2024. There was hypertrophic callus around proximal fifth proximal phalanx. July 05, 2024 fluoroscopic images showed pins in the distal phalanx of the thumb and pins in the fifth MCP region. Plain film June 28, 2004 showed orthopedic pins involving fifth digit, fourth digit and distal phalanx of the thumb. Initial exams May 23, 2024. FINDINGS: BONES/JOINTS: There is a well-corticated margin of the fracture of the distal phalanx of the thumb. Nonunited fracture at the proximal middle [id number] region of the fourth digit in the location of prior orthopedic pin, with a small dorsal fragment at the joint, no joint widening or serenity bone destruction. Mild callus and approximated fracture margins of the fracture of the proximal phalanx of the fifth digit. The joint appears subluxed or partially dislocated, with the articular surface of the proximal phalanx adjacent to the palmar surface of the distal metacarpal. Similar BB-like metallic foreign body at the distal forearm-proximal wrist ventral soft tissues. No serenity bone destruction suggesting osteomyelitis or joint widening. SOFT TISSUES: Mild multifocal soft tissue swelling. OTHER FINDINGS: The orthopedic pins have been removed. CT/Extremity Upper without Contra IMPRESSION: 1. Predominantly healing fractures. Small displaced fracture fragments near the proximal fourth middle phalanx fracture. 2. Subluxation-dislocation at the fifth MCP. New or significantly increased. 2. No serenity bone destruction or joint distention. Electronically Signed: Marbella Holland MD at 21:54 EST ,
== END | disposition home or self-care (01) ==
PROVIDERS: PCP Internal Medicine; Referring Provider Nurse Practitioner Family; Visit Provider Nurse Practitioner Family
DX: S62.606B Fracture of unspecified phalanx of right little finger, initial encounter for open fracture (principal); S69.91XA Unspecified injury of right wrist, hand and finger(s), initial encounter; X58.XXXA Exposure to other specified factors, initial encounter
CPT/HCPCS: 73200

== ENCOUNTER 2024-07-25 09:43 | Emergency (ER) | payer MEDICAID, SELFPAY ==
[2024-07-25 09:44] VITALS: BP 131/113; PULSE 89; RESP 16; TEMP 36.7; O2SAT 98; BMI 35.6
--- NOTE | 2024-07-25 10:00 | EX.ED.DYSGE1 ---
HPI History of Present Illness Chief Complaint: Sore Throat Detail of Chief Complaint: Respiratory symptoms that started last July 19. Informant: patient Onset/Context/Timing Onset: Today (Right ear pain with decreased hearing, sore throat for the past couple of days and productive sputum) Context: Sudden Onset Timing: Continuous and Waxes and wanes Quality: Initially upper respiratory symptoms. Location: Upper respiratory Current Severity: Mild Maximum Severity: Moderate Worsened by: Throat pain is worse with swallowing Relieved by: Nothing Associated Symptoms Associated Symptoms: Subjective fever Narrative Narrative: Patient is a 28-year-old male who quit smoking 1 month ago. He presents with upper respiratory symptoms that started July 19. He presents today because of ear pain and decreased hearing on the right side. He also complains of throat pain is predominately on the right side. He denies drooling. He does endorse change in voice. His cough is productive of colored sputum. Is been productive for the past 5 to 7 days. He denies myalgias arthralgias. He denies GI symptoms. He denies thirst or dry mouth. He has no allergies to pain medicine. He states he has no allergies to antibiotics. However it is noted that he is allergic to penicillin with swelling. This will impact prescribed antibiotic choice. Prior similar symptoms: Yes Recent Illness/Hospitalization: No PFSH PFSH Medical History Wears glasses Back pain Heartburn Vapes nicotine containing substance Hx of hypospadias Asthma Home Medications ?Medication ?Instructions ?Recorded ?Last Taken ?Type acetaminophen 500 mg tablet 1,000 mg PO Q8H PRN PRN pain 06/14/24 Unknown History (Tylenol Extra Strength) doxycycline monohydrate 100 mg 100 mg PO BID #20 CAPSULES 07/25/24 Unknown Rx capsule Allergy/AdvReac Type Severity Reaction Status Date / Time Penicillins Allergy Severe Swelling Verified 07/25/24 09:45 Family History Mother Thyroid disorder Surgical History Hx of hand surgery Hx of appendectomy H/O wrist surgery Social History household members: significant other and children housing: apartment current occupational status: employed 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 Smoking Status: Current every day smoker tobacco type: cigarettes and e-cigarettes alcohol intake: never substance use type: does not use what type of physical activity do you participate in: none seatbelt use: always do you feel safe at home: Yes ROS ROS ED Constitutional Constitutional ED: Reports chills; Denies fever(s), subjective or sweats Eyes Eyes: Denies blurry vision or change in vision ENT ENT ED: Reports ear pain right and sore throat; Denies rhinorrhea Cardiovascular Cardiovascular: Denies chest pain, orthopnea, palpitations or paroxysmal nocturnal dyspnea Respiratory/Chest Respiratory/Chest: Reports cough and sputum; Denies dyspnea, dyspnea on exertion, orthopnea or paroxysmal nocturnal dyspnea Gastrointestinal Gastrointestinal: Denies abdominal pain, diarrhea, nausea or vomiting Musculoskeletal Musculoskeletal: Denies arthralgias, myalgias or neck pain Integumentary Denies rash Neurologic Neurologic: Denies headache(s) Hematologic/Lymphatic Hematologic/Lymphatic: Reports systems reviewed and no addt'l complaints, except as documented EXAM Physical Exam Const Vital Signs: 07/25/24 09:44 Temperature 98.0 F Temperature Source Temporal Pulse Rate 89 Respiratory Rate 16 Blood Pressure 131/113 H Blood Pressure Mean 119 Pulse Ox 98 Oxygen Delivery Method Room Air Vital signs reveal mildly elevated blood pressure. He has no history of elevated blood pressure. Positive well nourished and well developed Constitutional Narrative: BMI is 35.6. General Appearance ED: well developed and NAD; Negative for pallor HEENT Reports moist mucous membranes HEENT Narrative: Uvula midline. There is no erythema or exudate. Right TM is erythematous with distortion of landmarks and slightly bulging. The entire TM was not visualized due to cerumen in the external auditory canal. The left TM is normal. Nares patent. Eyes PERRL and EOMs intact bilaterally General Eye ED: Negative for pale conjunctiva or scleral icterus Neck no lymphadenopathy, supple and no JVD Neck Narrative: Trachea is midline. There is no stridor. Chest Wall inspection of chest normal and palpation of chest normal Resp normal respiratory effort and clear to auscultation bilaterally Cardio regular rate, regular rhythm, S1 normal heart sound, S2 normal heart sound and no murmurs Extremity Extremity Narrative: Patient has deformity to his fingers right hand due to traumatic injury, amputation with reimplantation General Extremety ED: Negative for edema or tenderness General Extremity: Negative for edema Neuro oriented x3 and CN's II-XII intact bilaterally Sensorium / Orientation: alert Psych mental status grossly normal Skin no rashes or lesions noted, no wounds and skin turgor normal General Skin Exam: Negative for jaundice or pallor MDM MDM MDM Narrative Medical decision making narrative: Patient does have otitis media on the right. With no abnormal oscillatory findings and normal vital signs other than slight elevated blood pressure imaging was not obtained based on literature from many years ago. No one with normal respiratory rate, heart rate, temperature and no hypoxia was noted to have abnormal findings on chest x-ray. Since patient does have history of penicillin allergy with evidence of otitis and purulent sputum we will place on quinolone which will cover both typical and atypical organisms. History & Record Review Additional record(s) reviewed:: Prior outpatient record (Operative note by Dr. Masood Parra for open fracture finger right hand) and Prior ED visit (Seen May 23 for injury to fingers right hand., May 02 for elbow contusion, August for dehydration) Discharge Plan Triage Chief Complaint: Sore Throat ED Provider: Ernie Willett Dx/Rx/DC Orders Clinical Impression: Acute right otitis media, Purulent bronchitis, Elevated blood-pressure reading without diagnosis of hypertension Instructions: ED Upper Resp Infec Abx Tx, ED Hypertension, To Be Confirmed, ED Otitis Media Adult Prescriptions: New doxycycline monohydrate 100 mg capsule 100 mg PO BID Qty: 20 0RF No Action acetaminophen [Tylenol Extra Strength] 500 mg tablet 1,000 mg PO Q8H PRN PRN (Reason: pain) Primary Care Provider: Anne Contreras Referrals: Anne Contreras MD [Primary Care Provider] - 1 Week if not improving Activity Restrictions/Additional Instructions: Make an appointment with your doctor to be seen in 2 weeks for blood pressure check. Print Language: Dutch Disposition Disposition: Home, Self Care
== END 2024-07-25 10:40 | disposition home or self-care (01) ==
LOC: ED 10:36
PROVIDERS: Emergency Provider Emergency Medicine; PCP Internal Medicine; Visit Provider Emergency Medicine
DX: H66.91 Otitis media, unspecified, right ear (principal); J41.1 Mucopurulent chronic bronchitis; R03.0 Elevated blood-pressure reading, without diagnosis of hypertension; Z88.0 Allergy status to penicillin; Z87.891 Personal history of nicotine dependence
CPT/HCPCS: 99282

== ENCOUNTER 2024-08-17 12:50 | Day surgery (SDC) | payer MEDICAID, SELFPAY ==
[2024-08-17] VITALS (9 sets, daily range): BP systolic 110–127; BP diastolic 63–82; PULSE 82–97; RESP 16–18; TEMP 36.6–36.9; O2SAT 93–96; BMI 35.6
[2024-08-17] MEDS: 0.9% Normal Saline (1000mL) 1,000 ML 15 ML IV (13:20)
--- NOTE | 2024-08-17 13:22 | PRE.ANES_ITS ---
ASA Classification* ASA Classification ASA Classification: 2 Assessment & Plan Anesthesia* Anesthesia Assessment Anesthesia Assessment: Discussed sedation and/or anesthesia options, risks, benefits, and alternatives with patient/parents/legal guardian/POA. Questions invited. The patient/parents/legal guardian/POA seems to understand and agrees to proceed with anesthesia plan. Reviewed the physical assessment, medical history, allergy history and patient home medications list prior to surgery/procedure/anesthetic and documented any changes. Performed airway and anesthesia risk assessments. Anesthesia Type Anesthesia Type: General Anesthesia Focused Assessment* Temperature: 98.4 F Pulse Rate: 82 Blood Pressure: 127/82 Respiratory Rate: 16 Pulse Ox: 96 Airway Assessment Mouth opens: >3 cm Mallampati Score: II Focused Labs Anesthesia Preop lab: CBC WBC 21.6 K/mm3 (4.4-11.0) H 05/24/24 06:19 RBC 4.44 M/mm3 (4.6-6.2) L 05/24/24 06:19 Hgb 13.6 g/dL (13.0-16.5) 05/24/24 06:19 Hct 41.2 % (40-54) 05/24/24 06:19 Plt Count 223 K/mm3 (150-450) 05/24/24 06:19 CHEMISTRY Potassium 4.1 mmol/L (3.5-5.1) 08/22/23 20:30 Sodium 140 mmol/L (136-145) 08/22/23 20:30 BUN 19 mg/dL (7-18) H 08/22/23 20:30 Creatinine 1.23 mg/dL (0.70-1.30) 08/22/23 20:30 Glucose 117 mg/dL (74-106) H 08/22/23 20:30 COAG PT 13.5 SECONDS (11.7-14.9) 08/22/23 20:30 Pre-Assessment Diagnosis/Proposed Procedure Planned Operative Procedure(s): (R) Revision Amputation Small Finger, Right Anesthesia History 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 When Was Last Pacemaker Check QUESTION #4 FULL TEXT: You/Your Family Experience fever (hyperthermia) with Anesthesia Last Oral Intake Last Oral intake: Last Oral Intake NPO since 10:00 08/17/24 13:13 Meds taken in AM with sips of water? Meds patient instructed to take am of surgery PONV PONV - design technology teacher: PONV - design technology teacher Female No 08/15/24 10:31 HX of Motion Sickness No 08/15/24 10:31 HX of N/V After Surgery Yes 08/15/24 10:31 Non-Smoker No 08/15/24 10:31 Duration of Surgery greater Yes 08/15/24 10:31 than 60 minutes Number of Risk Factors 2 08/15/24 10:31 PONV Score Moderate Risk 08/15/24 10:31 Height & Weight Height & Weight: Anesthesia: Height & Weight Height 6 ft 08/17/24 13:13 Weight: 119.295 kg 08/17/24 13:13 Body Mass Index (BMI) 35.6 08/17/24 13:13 Respiratory Assessment Respiratory Assessment - design technology teacher: Respiratory Tract Infection Hx - design technology teacher Hx Respiratory Tract Infection Yes: INSTRUCTED TO NOTIFY DR 08/15/24 10:31 STOP Sleep Apnea STOP Sleep Apnea - design technology teacher: STOP Sleep Apnea - design technology teacher Hx Hypertension No 08/15/24 10:31 Hx Sleep Apnea No 08/15/24 10:31 CPAP No 08/15/24 10:31 BIPAP Do you snore loudly (louder No 08/15/24 10:31 than talking or can be heard Do you often feel tired/ No 08/15/24 10:31 fatigued/ sleepy during daytime? Has anyone observed you stop No 08/15/24 10:31 breathing during sleep? STOP Results Negative 08/15/24 10:31 QUESTION #5 FULL TEXT : Do you snore loudly (louder than talking or can be heard through closed doors)? Tobacco Use History Tobacco Use History - design technology teacher: Tobacco Use History - design technology teacher Tobacco Use Smoking Status Current every day smoker 08/15/24 10:31 Hx Tobacco Use Yes 08/15/24 10:31 Years Smoking Packs Smoked per Day Smoking Cessation Date was within the last 15 years Hx Smoking Cessation Date Hx Smoking Cessation Counseling Hematologic Medial History Hematologic Hx - design technology teacher: Hematologic Medical Hx - care director Hx of Blood Transfusion No 08/15/24 10:31 Hx of Transfusion in last 3 No 08/15/24 10:31 Months Date of Last Transfusion (if within last 3 months) Ever experience any problems No 08/15/24 10:31 with transfusion(s)? Specify any problems Hx of Preganancy in last 3 N/A 08/15/24 10:31 Months Nurse Filling Out Transfusion MGRIFFITH 08/15/24 10:31 & Questions: Date: 08/15/24 08/15/24 10:31 Time: 10:32 08/15/24 10:31 Patient unable to answer at this time (ie. confused, unrespo /Reproduction History /Reproductive History - design technology teacher: /Reproductive Hx- design technology teacher Hx Now Gestational Age (in weeks): EDC: Hx Hx Para Hx Section SAB No 07/01/24 11:30 Active Medications Active Medications: Current Medications Generic Name Dose Route Start Last Admin Trade Name Freq PRN Reason Stop Dose Admin Clindamycin Phosphate 900 mg in 50 mls @ 75 mls/hr 08/17/24 14:45 Cleocin IV 08/17/24 15:24 PREOP ONE Sodium Chloride 1,000 mls @ 15 mls/hr 08/17/24 13:05 08/17/24 13:20 IV 08/23/24 02:24 15 mls/hr .Q48H ISABELLE Administration Protocol PFSH Medical History Gastric reflux Wears glasses Back pain Heartburn Vapes nicotine containing substance Hx of hypospadias Asthma Home Medications ?Medication ?Instructions ?Recorded ?Last Taken ?Type acetaminophen 500 mg tablet 1,000 mg PO Q8H PRN PRN pain 06/14/24 Unknown History (Tylenol Extra Strength) dextromethorphan HBr 5 mg/5 mL 10 mg PO Q8H PRN cold symptoms 08/15/24 Unknown History oral syrup (Vicks DayQuil Cough) Allergy/AdvReac Type Severity Reaction Status Date / Time Penicillins Allergy Severe Swelling Verified 08/17/24 13:13 Family History Mother Thyroid disorder Surgical History Hx of hand surgery Hx of appendectomy H/O wrist surgery Social History household members: significant other and children housing: apartment current occupational status: employed 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
--- NOTE | 2024-08-17 14:35 | PCM.HP.STD ---
HPI - General HPI Narrative CARLYLE HERRERA, is a 28 M who presents with a stiff and painful right small finger. Current Encounter (DATE OF SURGERY H&P UPDATE): I saw and examined the patient this morning in pre-operative holding. We discussed risks and benefits of today's surgery and they would like to proceed. NO CHANGE in health history since last seen and evaluated. Ready to proceed with surgery. [facility] Medical History Gastric reflux Wears glasses Back pain Heartburn Vapes nicotine containing substance Hx of hypospadias Asthma Home Medications ?Medication ?Instructions ?Recorded ?Last Taken ?Type acetaminophen 500 mg tablet 1,000 mg PO Q8H PRN PRN pain 06/14/24 Unknown History (Tylenol Extra Strength) dextromethorphan HBr 5 mg/5 mL 10 mg PO Q8H PRN cold symptoms 08/15/24 Unknown History oral syrup (Vicks DayQuil Cough) Allergy/AdvReac Type Severity Reaction Status Date / Time Penicillins Allergy Severe Swelling Verified 08/17/24 13:13 Family History Mother Thyroid disorder Surgical History Hx of hand surgery Hx of appendectomy H/O wrist surgery Social History household members: significant other and children housing: apartment current occupational status: employed 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 Smoking Status: Current every day smoker tobacco type: cigarettes and e-cigarettes alcohol intake: never substance use type: does not use what type of physical activity do you participate in: none seatbelt use: always do you feel safe at home: Yes Vital Signs Vital Signs Vital Signs: 08/17/24 13:13 08/17/24 13:13 08/17/24 13:22 Temperature 98.4 F 98.4 F Temperature Source Temporal Pulse Rate 82 82 Respiratory Rate 16 16 Respiratory Pattern Normal Blood Pressure 127/82 H 127/82 H Blood Pressure Mean 97 Blood Pressure Source Monitor Blood Pressure Position Semi-Fowlers Blood Pressure Location Left Arm Pulse Ox 96 96 Oxygen Delivery Method Room Air Weight Weight: 263 lb Body Mass Index (BMI) 35.6 Physical Exam Narrative Right upper extremity Inspection: Pin sites healed, no signs of drainage/infection. All incisions healed. There is no drainage or signs of infection. No induration or swelling. Flexion contracture of the ring finger DIP joint. Palpation: No tenderness to palpation over the thumb, ring. No palpable instability at the fractures. 50 degrees of ring finger PIP joint passive ROM. There is no tenderness today with palpation over the small finger P1 fracture site, rather pain is over the DIP point and over the PIP joint. Motor: Able to bend and extend index and long fingers. Can bend ring finger PIP (40 degrees) and DIP (20 degrees) joints slightly, can bend ring MCP joint of the small finger 45 degrees. Thumb IP joint flexes 90 degrees. He can flex MCP of small finger 30 degrees. No IP joint flexion on the small finger. Vascular: Fingers are warm and well perfused. Sensation: Persistent numbness distal to the zone of injury on the radial and ulnar borders of the small finger with no discernable two point discrimination on the ulnar border and 5 mm 2 point discrimination on the ulnar border distal to the zone of injury. No Tinel sign. He has intact sensation distal to the zone of injury on the ring finger. Assessment & Plan Assessment/Plan (1) Open fracture of finger of right hand: PLAN: INTERVAL H&P PLAN, DATE OF SURGERY: We will proceed with surgery today. Patient has persistent pain in the small finger with persistent stiffness. His pain and stiffness come from the base of the finger, but other parts of the finger as well. We discussed surgical interventions that could be done in the future for improvement of this digit (including correction of the existing deformity of the bone, tenolysis, and other interventions to improve function), but I also talked to him about the need for hand therapy. We further talked about partial amputation to help with agent broker strength (for example amputation to save length leaving the base of P1). He is again today adamant that he does not want any surgical interventions or any more hand therapy for the treatment of the small finger other than an amputaiton. His fiance and mother are present. They are all in agreement. 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 He understands that removal of a border digit with significantly decrease his agent broker strength. He would like to proceed with amputation of the digit at the level of the MCP joint.
--- NOTE | 2024-08-17 14:45 | BON_PTH ---
PATIENT: CARLYLE HERRERA LOC: [facility] U#:[id number] AGE/SX: 28/M ROOM: RE08/17/[address]: Dr. Masood Parra MD : 1995 BED: DIS: 08/17/2024 SPEC #: [id number] RECD: 08/17/24 17:24 STATUS: EDGAR REKanika #: [id number] TRESSA: 08/17/24 14:[address]: Masood Parra DEPT: SURGICAL PATHOLOGY RECD BY: Noam Lopez ENTERED: 08/18/24 10:07 SP TYPE: Bone OTHR DR: Dr. Anne Contreras MD Tissues: Bone of hand, NOS Procedures: Decalcification bone/plaque Surgery Specimen Level IV HEADER OPERATION: Revision amputation small finger, right PRE-OP DIAGNOSIS: Open fracture of finger of right hand TISSUE SUBMITTED: Right small finger MICROSCOPIC DIAGNOSIS Right small finger, revision amputation: Focal verrucous keratosis changes and dermal chronic inflammation. Pieces of bone with reactive changes and callus formation, clinically open fracture finger of right hand. 08/24/2024 MICROSCOPIC DESCRIPTION Slides are reviewed. GROSS DESCRIPTION Received in fixative is one container labeled with the patient's name and designated Right small finger. The specimen consists of a portion of digit (finger) measuring 5.0 x 1.9 x 1.5cm. The nail is present and unremarkable. A focal brownish area is noted close to the section margin measuring 0.2cm in greatest dimension. No other lesion is identified. Also present in the container is a detached piece of skin measuring 3.0 x 1.0 x 0.3cm. Also present in the container are two detached pieces of bone measuring 2.0 x 1.0 x 1.0cm and 1.0 x 1.0 x 0.5cm. Wooden Boat Builder sections are submitted in four cassettes as follows: 1- skin with area of brown lesion, detached piece of skin and soft tissue, 2- smallest piece of bone after decalcification, 3&4- bone from finger and detached piece of bone after decalcification. 08/18/2024 TC:5 CPT:91233,49982
[2024-08-17] MEDS: Clindamycin 900 MG/50 ML BAG 75 MG IV (15:00)
[2024-08-17] MEDS: Lidocaine 1% /Epi 1:100 (20ml) 20 ML Vial (15:09)
[2024-08-17] MEDS: Bupiv/Epi 0.25% 30 ML Vial (15:09)
--- NOTE | 2024-08-17 16:11 | PCM.POST.ANE ---
Anesthesia: Postop Eval I Current Vital Signs Temperature: 98 F Pulse Rate: 92 Blood Pressure: 126/78 Respiratory Rate: 18 Pulse Ox: 96 Oxygen Delivery Method: Room Air Assessment Airway patent: Yes Spontaneous unlabored respirations: Yes Mental status: Awake and Calm nausea: No Vomiting: No Anesthesia Complication: No Fluid Hydration Crystalloid volume administer (ml): 1,000 Total IV fluid infused: 1,000 Progress Note Anesthesia document: Postop Eval 1 completed: Yes
--- NOTE | 2024-08-17 18:15 | PCM.OPRPT ---
Operative Report (Standard) Operative Information Date of Procedure: 08/17/24 Pre-Operative Diagnosis: Stiff and painful right small finger after traumatic partial amputation (fracture, nerve injury, flexor and extensor tendon injuries) Post-Operative Diagnosis: Same Surgery/Procedure Performed: 1) Amputation of the right small finger at the metacarpal phalangeal (MCP) joint (CPT: 55130) reinspector: No Type of Anesthesia: General (with 20 cc of 0.25% Marcaine with 1:200,000 epinephrine for a local block ) RN Documented Start/Stop Times: Operation Date: 08/17/24 14:45 Case Time Into Pre-Op 08/17/24 13:01 Out of Pre-Op 08/17/24 14:42 Anesthesia Start 08/17/24 14:46 Into Room 08/17/24 14:46 Procedure Start 08/17/24 15:09 Procedure End 08/17/24 15:56 Anesthesia End 08/17/24 16:06 Out of Room 08/17/24 16:06 Into Recovery 08/17/24 16:10 Out of Recovery 08/17/24 16:35 Into Phase II Recovery 08/17/24 16:36 Out of Phase II 08/17/24 17:04 Procedure Start Time: 15:09 Procedure Stop Time: 15:56 Select all DRAINS/GRAFTS/IMPLANTS that apply: None Estimated Blood Loss: Minimal Specimen collected: Yes Description of specimen(s) removed: Amputated right small finger Description of surgery: Indications: 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 He presents with a painful stiff small finger. He is no longer interested in doing any hand therapy as this is interfering with his work schedule and his family responsibilities. He is unable to get his work gloves on well with the finger being so stiff, and reports a getting caught on things. He understands that not having a small finger will significantly reduce his teacher home therapy strength and hand function. He would like to proceed with amputation of the small finger and is not interested in any further salvage procedures. He understands the risks, benefits, and alternatives, as we have talked about them at multiple visits and immediately before the procedure today. Procedure details: Patient was correctly identified in preoperative holding and the digit was marked. He was taken back to the operating room where he was administered general anesthesia and prepped and draped in sterile fashion. A digital block was performed (see above). He was given time to take effect. A tourniquet was inflated on the arm to 250 mmHg after the Esmarch was used. A 15 blade scalpel was used to create a volar ulnar advancement flap of palmar tissue and continue the cut dorsally around the scar and the small finger digit. Dissection was carried along the bone with a 15 blade scalpel to the MCP joint where the digit was removed with a 15 blade scalpel. The wound was irrigated with copious amounts normal saline. Traction neurectomies were performed on the digital nerves and the arteries were cauterized with bipolar electrocautery. The metacarpal head was rongeured so as to remove the cartilage and prevent fluid collections. The tourniquet was let down and hemostasis was again obtained with bipolar electrocautery. The volar/ulnar palmar tissue was then advanced and rotated over the metacarpal head and deep suture with 4-0 Vicryl was placed to obliterate the space and advance the flap. The skin was then closed with horizontal mattress 3-0 nylon sutures. Xeroform, gauze Ab and Coban were applied. Patient tolerated procedure well and was awakened and taken the PACU in stable condition. Postoperative plan: Follow-up for wound check in 2 days in clinic. Surgical Findings: Intact flexor tendon repair with significant scarring around the repair along the course of the flexor tendon. Bony union of P1 of the amputated digit. Complications Complications: No Admit VTE Documentation VTE Mechan Device Prophylaxis: SCD's
--- NOTE | 2024-08-18 07:15 | POSTOPAN2_ITS ---
Anesthesia Postop Eval I Sum Postop Eval Completion status Anesthesia document: Postop Eval 1 completed: Yes Anesthesia Postop Eval I Summary Anesthesia Postop Eval I Summary: Anesthesia Postop Eval I: Assessment Summary Airway patent Yes 08/17/24 16:12 DIGITAL PROJECT COORDINATOR.[email or web address] Spontaneous unlabored Yes 08/17/24 16:12 DIGITAL PROJECT COORDINATOR.[email or web address] respirations Mental status Awake,Calm 08/17/24 16:12 DIGITAL PROJECT COORDINATOR.[email or web address] nausea No 08/17/24 16:12 DIGITAL PROJECT COORDINATOR.[email or web address] Vomiting No 08/17/24 16:12 DIGITAL PROJECT COORDINATOR.[email or web address] Anesthesia Postop Eval I: Fluid Summary Crystalloid volume administer 1,000 08/17/24 16:12 DIGITAL PROJECT COORDINATOR.[email or web address] (ml) Colloids volume administered ( ml) Blood Product volume administered (ml) Total IV fluid infused 1,000 08/17/24 16:12 DIGITAL PROJECT COORDINATOR.KATIE Anesthesia Postop Eval I: Summary Notes Anesthesia Complication No 08/17/24 16:12 DIGITAL PROJECT COORDINATOR.KATIE Anesthesia Complication Comment: Post-operative progress note Anesthesia: Postop Eval II Evaluation Mental status: Awake Pain Level: 0 nausea: No Vomiting: No
--- NOTE | 2024-08-18 07:15 | PCM.POSTANE2 ---
Anesthesia Postop Eval I Sum Postop Eval Completion status Anesthesia document: Postop Eval 1 completed: Yes Anesthesia Postop Eval I Summary Anesthesia Postop Eval I Summary: Anesthesia Postop Eval I: Assessment Summary Airway patent Yes 08/17/24 16:12 TECHNICAL [email or web address] Spontaneous unlabored Yes 08/17/24 16:12 TECHNICAL LEAD.[email or web address] respirations Mental status Awake,Calm 08/17/24 16:12 TECHNICAL LEAD.[email or web address] nausea No 08/17/24 16:12 TECHNICAL LEAD.[email or web address] Vomiting No 08/17/24 16:12 TECHNICAL LEAD.[email or web address] Anesthesia Postop Eval I: Fluid Summary Crystalloid volume administer 1,000 08/17/24 16:12 TECHNICAL LEAD.[email or web address] (ml) Colloids volume administered ( ml) Blood Product volume administered (ml) Total IV fluid infused 1,000 08/17/24 16:12 TECHNICAL LEAD.KATIE Anesthesia Postop Eval I: Summary Notes Anesthesia Complication No 08/17/24 16:12 TECHNICAL LEAD.KATIE Anesthesia Complication Comment: Post-operative progress note Anesthesia: Postop Eval II Evaluation Mental status: Awake Pain Level: 0 nausea: No Vomiting: No
== END 2024-08-17 17:04 | disposition home or self-care (01) ==
LOC: SDC 12:53 → AC 12:54
PROVIDERS: PCP Internal Medicine; Referring Provider Surgery Plastic and Reconstructive Surgery; Visit Provider Surgery Plastic and Reconstructive Surgery
PROC: (CPT 26952; principal; 2024-08-17 14:30)
DX: M79.644 Pain in right finger(s) (principal); M25.69 Stiffness of other specified joint, not elsewhere classified; S68.126 Partial traumatic metacarpophalangeal amputation of right little finger; W23.0XXS Caught, crushed, jammed, or pinched between moving objects, sequela; J45.909 Unspecified asthma, uncomplicated; F17.210 Nicotine dependence, cigarettes, uncomplicated; F17.290 Nicotine dependence, other tobacco product, uncomplicated; Z79.899 Other long term (current) drug therapy
CPT/HCPCS: 26952; 01830; 88305; 88311; J2405

== ENCOUNTER 2024-08-22 11:30 | Outpatient (RCR) | payer MEDICAID, SELFPAY ==
--- NOTE | 2024-06-15 14:43 | HP.OTEVAL_ITS ---
Patient's Visit Information Visit Information Visit Information: CARLYLE HERRERA is a 28 year old M, referred to Occupational Therapy by Dr. Masood Parra MD, with a diagnosis of right digital nerve laceration/ tendon injury. Date of Evaluation: 06/14/24 Occupational Therapist: TICO Richardson/Yahaira, CHT Subjective Subjective: This 25 year old male was seen for OT eval with dx of right hand trauma. Pt had injury on 05/23/24 ( placed hand in a radiator fan on a forklift) pt underwent sx on 05/25/24. of right RF middle phalanx base intra-articular fx ( PIP joint) closed reduction percutaneous pinning for revision of K wires. Right small finger proximal phalanx shaft fx open reduction percutaneous pinning with addition of cadaver bone chips. Therapist retrieved post sx hx. form surgical report from Dr. Parra : PROCEDURE PERFORMED: 1) Wash out of open distal phalanx fracture, right thumb (CPT 42085 ) 2) Open reduction percutaneous pinning of right thumb distal phalanx (CPT: 23588) 3) Nail bed repair, right thumb (CPT 28151) 4) Wash out of right ring finger (RRF) middle phalanx fracture (CP 53353) 5) Open reduction percutaneous pinning of RRF middle phalanx (P2) fracture (CPT: 60630) 6) Radial collateral ligament repair, right ring finger proximal interphalangeal (PIP) joint (CPT 14323) 7) Zone 2 Flexor digitorum profundus repair (FDP) of RRF (CP 04375) 8) Wash out of open proximal phalanx fracture, right small finger (RSF) proximal phalanx (P1), (CPT 39386) 9) Open reduction percutaneous pinning RSF P1 fracture (CPT: 21884) 10) Zone 2 Flexor digitorum profundus repair (FDP) of (CPT 91970) 11) Zone 2 Flexor digitorum superficialis repair (FDS), radial slip (CPT 75716) 12) Repair of extensor tendon, right small finger (CPT: 95032) 13) Radial digital nerve repair, RSF (CPT: 18281) 14) Simple repair of hand lacerations, 10 cm (CPT 91205) Due to pt having difficulty tolerating his cast- pt is referred for custom orthosis to allow for further support and protection of newly healing structure s. pt is right handed Pain right hand: Current Pain Intensity: 7 Pain Intensity Range: 4 and 6 ROM Elbow: right /left WNL Forearm: right limited pain left WFL Wrist: right limited due to healing structures ROM Comments: pin sites intact only movable fingers at this time IF/MF Sensation Sensation Comments: hyper sensitive at this time due to healing structures will test with monofilaments in 6 weeks following wound repair Quick DASH-Disab of Arm,Shoulder& Hand Quick DASH Score: 91.6650 Goals Goal:Daily scar massage when approriate: Yes Goal:ROM equal to unaffected hand: Yes Goal:Nickel Plater/Pinch strength at least 75% of unaffected hand: Yes Goal:No pain with affected hand use: Yes Goal:PIP Circumferences equal to unaffected hand: Yes Goal:Full use of affected hand in daily activities including work: Yes Goal:Improvement in sensation documented by [place] monofiliaments: Yes Goal:Decrease scar hypersensitivity: Yes Other Goal: open wound: wound closure in 2 weeks or less prior to pin removal. orthosis use: pt will demo IND donning/doffing of custom orthosis by end of 1st session. family will demo understanding of wound cleaning by end of 4th session to cont. with home dressing changes 2x a day Rehabilitation General Assessment: Pt arrives 2 weeks and 6 days from right hand trauma with surgical repair as listed above. pt demo with open wound of right small finger and pin covers in place on RF/LF. Due to severity of trauma pt demo need for intense skilled OT services 3-5x week for 6 months. Today therapist radha. custom orthosis (clam shell) to protect and support all newly healing structures. Rehabilitation Potential: Good Anticipated Interventions Anticipated Interventions: A/AAROM/PROM, Edema Control, Scar Care, Triggerpoint Release, Sensory Retraining, Wound Care, Modalities, Orthoses, Sensory Stimulation and Caregiver Training Visit Plan Frequency: 4-5x /Week Duration: 6 Months General Plan: will radha. custom orthosis for protection and support ed. family on orthosis use ed. family on pin care site ed. family on cleaning of wound ed. family on cleaning of incision initiate sensory re-ed /sensory TEXT: Thank you for the opportunity to evaluate your patient. For Medicare and Medicare HMO plans, please review the plan of care and approve it. It will need to be FAXED BACK to us at [phone] for Medicare purposes. Please let me know if there are questions or concerns regarding this plan of care. Physician Signature: Date:
--- NOTE | 2024-10-19 13:42 | HP.OT.NRP ---
Patient Information Patient Information: CARLYLE HERRERA was seen in my office for initial evaluation on 06/14/24. The following Plan of Care was established for this patient: POC Established Initial Frequency: 4-5x /Week Initial Duration: 6 Months Plan: will see pt about every week and a half or two weeks as pt only has 7 more approved therapy visits - ROM Anticipated Interventions Anticipated Interventions: A/AAROM/PROM, Edema Control, Scar Care, Triggerpoint Release, Sensory Retraining, Wound Care, Modalities, Orthoses, Sensory Stimulation and Caregiver Training Last Seen Last Seen: This patient was last seen in our office 08/22/24. Pertinent comments regarding their Occupational therapy will appear below: pt at this time has not scheduled further OT apts. Due to time laps in services pt is d/c/. At this point I will be discontinuing this patient from occupational therapy. I would be happy to see this patient again in the future if found appropriate by the physician. Thank you! Jo Collins, OTR/L, CHT
== END 2024-08-22 19:00 | disposition home or self-care (01) ==
LOC: OT 11:30
PROVIDERS: PCP Internal Medicine; Referring Provider Surgery Plastic and Reconstructive Surgery; Visit Provider Surgery Plastic and Reconstructive Surgery
DX: S69.90XD Unspecified injury of unspecified wrist, hand and finger(s), subsequent encounter (principal); S64.40XD Injury of digital nerve of unspecified finger, subsequent encounter
CPT/HCPCS: 97110; 97140; 97165; 97530; 97760

== ENCOUNTER → 2025-03-21 | Outpatient (CLI) | payer MEDICAID, SELFPAY ==
--- NOTE | 2025-03-21 10:51 | RAD_ITS ---
PROCEDURE: FINGER(S) MIN 2 VIEWS 03/21/2025 REASON FOR EXAM: TRAUMA RIGHT RING FINGER TECHNIQUE: FINGER(S) MIN 2 VIEWS Laterality: Right COMPARISON: 07/21/2024 FINDINGS: Interval 5th digit amputation. Previous fracture of the 4th digit middle phalangeal base, interval progression of healing, but there is persistent residual lucency. No dislocation. Old 5th metacarpal base fracture. RAD/Finger(s) Min 2 Views IMPRESSION: Interval progression of healing, middle phalangeal base fracture, 4th digit, bu t some persistent lucency. Interval 5th digit amputation [facility]
== END | disposition home or self-care (01) ==
LOC: RAD 10:47
PROVIDERS: PCP Internal Medicine; Referring Provider Surgery Plastic and Reconstructive Surgery; Visit Provider Surgery Plastic and Reconstructive Surgery
DX: S68.119A Complete traumatic metacarpophalangeal amputation of unspecified finger, initial encounter (principal); X58.XXXA Exposure to other specified factors, initial encounter
CPT/HCPCS: 73140

== ENCOUNTER 2025-03-29 09:30 | Outpatient (RCR) | payer MEDICAID, SELFPAY ==
--- NOTE | 2025-03-22 16:59 | HP.OTEVAL_ITS ---
Patient's Visit Information Visit Information Visit Information: CARLYLE HERRERA is a 29 year old M, referred to Occupational Therapy by Dr. Masood Parra MD, with a diagnosis of right hand crush injury. 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 injury of digital nerve -tendon injury -traumatic hand. pt is right handed pt states he is having difficulty picking up heavy items. 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 currently unemployed. pt states he will get numbness for a few days in is right ring finger and will come and go. pt states ulnar side of RF sensation is over active ( hypersensitivity) overall pt feels he is IND with most daily tasks but still struggles with more heavy lifting. Pain right hand: Current Pain Intensity: 5 Pain Intensity Range: 8 and 9 ROM Wrist: wrist 70/55 left 65/70 CMC: right 10 left 10 MP: right 55 left 60 IP: right 70 left 70 MP: right RF 0/85 left left 0/75 PIP: right RF 0/60 left +10/85 DIP: right RF -40/40 left 0/75 Strength Materials Planning Analyst: right50# left 115# Lateral Pinch: right 8# 16# Tripod Pinch: right 8# left 14# Strength Comments: Static compare for space control supervisor strength testing on BTE left 1st test 164# left 2nd test 159# left 3rd test 145# for average space control supervisor strength of 156# right 1st test 77# right 2nd test 93# right 3rd test 100# for a average space control supervisor strength of 99# This indicates a 42.4% difference between right space control supervisor strength and left Sensation Thumb: right 2.83 left 2.83 Index: right 2.83 left 2.83 Middle: right 2.83 left 2.83 Ring: right 2.83 ulnar side of RF 1.65 hyper sensitive left 2.83 Little: right NT left 2.83 Quick DASH-Disab of Arm,Shoulder& Hand Quick DASH Score: 72.5000 Goals Goal:: pt will demo a increase in right space control supervisor strength by 15# or greater return pt to a PLOF by d/c pt will demo a increase in right lateral and tripod pinch by 4# to increase pts ind. with daily tasks by d.c Goal:: pt will report a reduction in nerve pain by 50% or greater to improve pts sleep/rest by d/c Goal:: pt will demo understanding of using silicone gel scar sheets to assist with scar mtg. by end of 2nd visit. Rehabilitation General Assessment: Pt underwent sx on 2023 with dx of : PROCEDURE PERFORMED: 1) Wash out of open distal phalanx fracture, right thumb (CPT 63628 ) 2) Open reduction percutaneous pinning of right thumb distal phalanx (CPT: 59372) 3) Nail bed repair, right thumb (CPT 11598) 4) Wash out of right ring finger (RRF) middle phalanx fracture (CP 74895) 5) Open reduction percutaneous pinning of RRF middle phalanx (P2) fracture (CPT: 38625) 6) Radial collateral ligament repair, right ring finger proximal interphalangeal (PIP) joint (CPT 80988) 7) Zone 2 Flexor digitorum profundus repair (FDP) of RRF (CP 49459) 8) Wash out of open proximal phalanx fracture, right small finger (RSF) proximal phalanx (P1), (CPT 28564) 9) Open reduction percutaneous pinning RSF P1 fracture (CPT: 42238) 10) Zone 2 Flexor digitorum profundus repair (FDP) of (CPT 68130) 11) Zone 2 Flexor digitorum superficialis repair (FDS), radial slip (CPT 91032) 12) Repair of extensor tendon, right small finger (CPT: 29200) 13) Radial digital nerve repair, RSF (CPT: 81513) 14) Simple repair of hand lacerations, 10 cm (CPT 72887) OPERATIVE FINDINGS: Severely comminuted fracture of the proximal phalanx of the right small finger with missing bone from the injury. Severely comminuted fracture of the middle phalanx base of the right ring finger. Radial collateral ligament injury with avulsion of the FDS insertions and avulsion of the A3 and 4 pulleys. Dirt in the wound pt did return to OR later 2024 for Amputation of the right small finger at the metacarpal phalangeal (MCP) joint (CPT: 90393) this was request of pt as he reported he could not feel his finger. pt has been seen intermittently in OT for splint and rehab. Pt has had states he would like to improve his space control supervisor strength and figure out how he can decrease the sensitivity on the lF stump and ulnar side of RF. pt is demo with weakness of right space control supervisor and pinch strength limiting use of right dominate hand with daily tasks. pt would benefit form skilled OT services 1x week for 8 weeks to improve pts strength and ed. pt on sensory re-ed and desensitization. pt demo understanding and agree to POC. Rehabilitation Potential: Good Anticipated Interventions Anticipated Interventions: Strengthening, Scar Care, Desensitization, Sensory Retraining and Education re Diagnosis Visit Plan Frequency: 1x/Week Duration: 2 Months TEXT: Thank you for the opportunity to evaluate your patient. For Medicare and Medicare HMO plans, please review the plan of care and approve it. It will need to be FAXED BACK to us at [phone] for Medicare purposes. Please let me know if there are questions or concerns regarding this plan of care. Physician Signature: Date:
--- NOTE | 2025-05-03 15:00 | HP.OT.NRP ---
Patient Information Patient Information: CARLYLE HERRERA was seen in my office for initial evaluation on 03/22/25. The following Plan of Care was established for this patient: POC Established Initial Frequency: 1x/Week Initial Duration: 2 Months Plan: 2 months- 1x week Anticipated Interventions Anticipated Interventions: Strengthening, Scar Care, Desensitization, Sensory Retraining and Education re Diagnosis Last Seen Last Seen: This patient was last seen in our office 03/29/25. Pertinent comments regarding their Occupational therapy will appear below: pt canceled a follow up apt after 03/29/25. He then no showed the next 3 therapy sessions that were scheduled. Due to cancellation and No- shows pt is d/c at this time. At this point I will be discontinuing this patient from occupational therapy. I would be happy to see this patient again in the future if found appropriate by the physician. Thank you! Jo Collins, OTR/L, CHT
== END 2025-03-29 19:00 | disposition home or self-care (01) ==
LOC: OT 09:30
PROVIDERS: PCP Internal Medicine; Referring Provider Surgery Plastic and Reconstructive Surgery; Visit Provider Surgery Plastic and Reconstructive Surgery
DX: S68.119D Complete traumatic metacarpophalangeal amputation of unspecified finger, subsequent encounter (principal); S69.91XD Unspecified injury of right wrist, hand and finger(s), subsequent encounter; S64.40XD Injury of digital nerve of unspecified finger, subsequent encounter
CPT/HCPCS: 97110; 97166

== ENCOUNTER 2025-05-17 09:18 | Day surgery (SDC) | payer MEDICAID, SELFPAY ==
[2025-05-17] VITALS (9 sets, daily range): BP systolic 115–136; BP diastolic 65–91; PULSE 59–88; RESP 16–20; TEMP 36.1–37; O2SAT 94–98; BMI 36.4
--- NOTE | 2025-05-17 09:45 | HP.PCM_ITS ---
HPI - General HPI Narrative CARLYLE HERRERA, is a 29 M who presents for right small finger MCP joint amputation site heterogenic ossification removal and right ring finger steroid injection today. 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 Volar to dorsal degloving injuries of the ring and small fingers, with a full-thickness laceration on the thumb. He was taken the OR on 05/24/24 for wound washout, K-wire pinning, tendon repair. His postoperative xray showed ongoing unstable fracture that was inadequately fixated by K wire therefore he returned to the OR on 05/26/24 for repeat washout, K wire revision and cadaver allograft placement. He started hand therapy and underwent pin removal on 07/06/24. He unfortunately continued to have small finger stiffness and pain despite maximizing conservative measures and affected his activities of daily living. On 08/17/24 he underwent right small finger amputation at the metacarpal phalange. He healed well and was satisfied with the function of his hand with good abstract maker strength. He returned for follow up in March, noting point tenderness ring finger radial side scar that is tender and tight, as well as surgical exploration and removal of the heterotopic ossification over the MCP joint amputation that is causing him point tenderness of radial side of ring finger and palpable firm mass consistent with heterotopic ossification. He is good stable health. No changes to medical history, denies new meds. He has cut down smoking to 2-3 cigs/day. He reports his MCP amputation site of right small finger is still very tender over the bony area. He has ongoing stiffness of his right ring finger but states it's functional and he has good abstract maker strength still. He reports sensitivity along his scar on the radial side of the ring finger. [facility] Medical History (Updated 04/26/25 @ 08:35 by Padmini Treviño) Smoker Shortness of breath on exertion Wears glasses Hx of hypospadias Asthma Home Medications ?Medication ?Instructions ?Recorded ?Last Taken ?Type acetaminophen 500 mg tablet 1,000 mg PO Q8H PRN PRN pa in 06/14/24 Unknown History (Tylenol Extra Strength) Allergy/AdvReac Type Severity Reaction Status Date / Time Penicillins Allergy Severe Swelling Verified 05/17/25 09:40 Family History Mother Thyroid disorder Surgical History (Updated 04/26/25 @ 08:35 by Padmini Treviño) Hx of surgical amputation of finger Hx of hand surgery Hx of appendectomy H/O wrist surgery Social History household members: significant other and children housing: apartment current occupational status: employed current occupation: [email or web address] Smoking Status: Current every day smoker tobacco type: cigarettes and e- cigarettes alcohol intake: never substance use type: does not use what type of physical activity do you participate in: none seatbelt use: always do you feel safe at home: Yes ROS ROS Narrative General: Denies fever, chills HEENT: Denies headaches, vision changes, sore throat Cardio: Denies chest pain, leg edema Pulmonary: Denies shortness of pain, cough, wheezing GI: Denies nausea, vomiting, diarrhea Physical Exam Narrative Right upper extremity: Inspection: All lacerations and pin sites have healed. There is no drainage or signs of infection. No induration or swelling. Flexion contracture of the ring finger DIP joint. Small finger amputation site healed well. Palpation: Focal tenderness of heterogenic ossification at MCP amputation site. Tenderness of radial aspect of the ring finger. Ring finger appears more supple with some hypertrophic scarring on the ring finger. No ring finger tenderness to palpation or manipulation. No palpable instability at the fractures. 90 degrees RRF passive ROM. 75 degrees of RRF PIP joint passive ROM. 50 degrees of RRF DIP joint passive range of motion. No PIP joint collateral ligament instability or dislocation with radial or ulnar stress and volar to dorsal stress. Motor: Able to bend and extend index and long fingers. Some angulation with flexion of the ring finger (overlaps slightly with long finger) Active ROM RRF MCP: 80 degrees RRF PIP: 75 degrees RRF DIP: 50 degrees Thumb IP joint bends 90 degrees. Vascular: Fingers are warm and well perfused. Sensation: 2 mm 2-point discrimination on the radial and ulnar sides of all fingers. He reports subjective sensation of tingling on the radial and ulnar borders distal to the DIP joint of the ring finger. Assessment & Plan Assessment/Plan (1) Heterotopic ossification: (2) Hypertrophic scar of skin: PLAN: Plan For for right ring finger MCP amputation heterogenic ossification removal and r ight ring finger Kenalog injection. Plan for discharge same day. Follow up Wednesday 05/23 at [facility].
--- NOTE | 2025-05-17 09:45 | RAD_ITS ---
EXAM: XR Right Hand, 2 Views CLINICAL INDICATION: RT HAND OSSIFICATION REMOVAL TECHNIQUE: Frontal and lateral views of the right hand. COMPARISON: No relevant prior studies available. FINDINGS: A total of 14 image was obtained. Total radiation dose 1.46 mGy. Total fluoroscopy time 16 seconds. RAD/Hand 2 Views IMPRESSION: As above. Reading Location: [id number]
[2025-05-17] MEDS: Lactated Ringers 1,000 ML 15 ML IV (09:51)
--- NOTE | 2025-05-17 10:02 | OP.PCM_ITS ---
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 Surgery/Procedure Performed: 1) Excision of neuroma with traction neurectomy of the right hand near MCP joint amputation of small finger (old small finger proper digital nerve) 2) Scar injection right ring finger (hypertrophic scar), 0.5 cc of Kenalog 40 latin american studies director: Yes Er Nurse: Daphney Gerber Tasks completed by esol teacher assistant: Retracting Type of Anesthesia: Local MAC (15 cc of a 50-50 mixture of quarter percent Marcaine and 1% lidocaine) RN Documented Start/Stop Times: Operation Date: 05/17/25 11:45 Case Time Into Pre-Op 05/17/25 09:27 Procedure Start Time: 10:39 Procedure Stop Time: 11:15 Select all DRAINS/GRAFTS/IMPLANTS that apply: None Estimated Blood Loss: 10 cc Specimen collected: Yes Description of specimen(s) removed: Fragment of heterotopic ossification from the right hand sent for pathology Description of surgery: Indications: Patient is delightful 29 old male presenting for a painful area beneath the scar from the revision amputation site of the MCP joint of the right small finger. The area is consistent with an area of heterotopic ossification seen on the x- ray vs. neuroma. He would like it removed. It is palpable under the skin. I marked the area of the palpable, mobile mass over the MCP joint amputation incision. He agreed to excision of this location. Furthermore, I also talked to him about scar injection for a hypertrophic ulnar-sided ring finger scar, and he was in agreement. The risks benefits and alternatives of the procedure were discussed. Procedure details: Patient was correctly identified in preoperative holding and taken back to the operating room where he was administered sedation and above-noted local anesthesia. He was prepped and draped in sterile fashion all proper timeouts were performed. Tourniquet was applied to the arm and insufflated to 250 mmHg. The area of point tenderness and presumed heterotopic ossification was identified with the mini C arm and was consistent with the preoperative site marking in preoperative holding (where he was tender). A 15 blade scalpel was used to make an incision over this area, and we immediately saw a ball of nerve consistent with a neuroma immediately beneath the skin. This was congruent with the area of palpable mobile mass examined in preop and in clinic. This was actually more superficial than the presumed heterotopic ossification identified in the C arm. The bone fragment area identified on the C arm was stable and not mobile, and therefore was likely not the actual problem, rather the palpable mass/area of point tenderness was in fact a neuroma. The digital nerve to the ring finger was dissected and confirmed to be out of the field (not involved in the neuroma and the ring finger digital nerve on the ulnar side was in complete continuity). We therefore resected the proper digital (to previously amputated small finger) neuroma at the base with traction neurectomy and sent it to pathology. Since there was no further palpable mass/mobile area at this point and the bone appeared to be completely solid without any fragments/heterotopic ossification clinically, we deferred any further exploration as the mass was already identified and removed. We let the tourniquet down and hemostasis obtained with bipolar electrocautery. The wound was irrigated with copious amounts normal saline. It was closed with 3-0 nylon horizontal mattress suture. Attention was then turned to the hypertrophic scar in the ulnar border of the right ring finger which was injected with 0.5 cc of Kenalog 40. Patient tolerated the procedure. A bulky gauze dressing and Coban was applied and he was taken to the PACU in stable condition. Surgical Findings: Neuroma beneath the skin that was consistent with the palpable mass/area of point tenderness. No signs of infection. Complications Complications: No
--- NOTE | 2025-05-17 10:06 | PCM.PRE.AN2 ---
ASA Classification* ASA Classification ASA Classification: 2 Assessment & Plan Anesthesia* Anesthesia Assessment Anesthesia Assessment: Discussed sedation and/or anesthesia options, risks, benefits, and alternatives with patient/parents/legal guardian/POA. Questions invited. The patient/parents/legal guardian/POA seems to understand and agrees to proceed with anesthesia plan. Reviewed the physical assessment, medical history, allergy history and patient home medications list prior to surgery/procedure/anesthetic and documented any changes. Performed airway and anesthesia risk assessments. Anesthesia Type Anesthesia Type: General History Source History Obtained from:: Patient and Chart Anesthesia Focused Assessment* Temperature: 98.6 F Pulse Rate: 59 Blood Pressure: 136/82 Respiratory Rate: 16 Pulse Ox: 98 Oxygen Delivery Method: Room Air Airway Assessment Mouth opens: >3 cm Mallampati Score: II Teeth Condition: Intact Neck Range of motion (ROM): Full ROM Labs Anesthesia Preop lab: CBC WBC, (4.4-11.0) 21.6 K/mm3 H 05/24/24, 06:19 RBC, (4.6-6.2) 4.44 M/mm3 L 05/24/24, 06:19 Hgb, (13.0-16.5) 13.6 g/dL 05/24/24, 06:19 Hct, (40-54) 41.2 % 05/24/24, 06:19 Plt Count, (150-450) 223 K/mm3 05/24/24, 06:19 CHEMISTRY Potassium, (3.5-5.1) 4.1 mmol/L 08/22/23, 20:30 Sodium, (136-145) 140 mmol/L 08/22/23, 20:30 BUN, (7-18) 19 mg/dL H 08/22/23, 20:30 Creatinine, (0.70-1.30) 1.23 mg/dL 08/22/23, 20:30 Glucose, (74-106) 117 mg/dL H 08/22/23, 20:30 COAG PT, (11.7-14.9) 13.5 SECONDS 08/22/23, 20:30 Pre-Assessment Diagnosis/Proposed Procedure Planned Operative Procedure(s): RIGHT HANDHETEROTROPIC OSSIFICATION REMOVAL SCAR INJECTION RIGHT FINGER Anesthesia History Anesthesia History - supervisor shrimp pond: Anesthesia History - supervisor shrimp pond Hx Hospitalization No 04/26/25 08:30 Any Problems With Anesthesia No 04/26/25 08:30 Cholinesterase deficiency No 04/26/25 08:30 You/Your Family Experience No 04/26/25 08:30 fever (hyperthermia) with Relationship Recent Exposure to Contagious No 09/05/24 09:25 Disease Does patient have nerve No 04/26/25 08:30 stimulator Patient instructed to have device shut off --Does patient have Pacemaker No 05/17/25 09:41 or ICD? When Was Last Pacemaker Check QUESTION #4 FULL TEXT: You/Your Family Experience fever (hyperthermia) with Anesthesia Last Oral Intake Last Oral intake: Last Oral Intake NPO since 22:30 05/17/25 09:41 Meds taken in AM with sips of No 05/17/25 09:41 water? Meds patient instructed to take am of surgery PONV PONV - supervisor shrimp pond: PONV - supervisor shrimp pond Female No 04/26/25 08:30 HX of Motion Sickness No 04/26/25 08:30 HX of N/V After Surgery No 04/26/25 08:30 Non-Smoker No 04/26/25 08:30 Duration of Surgery greater Yes 04/26/25 08:30 than 60 minutes Number of Risk Factors 1 04/26/25 08:30 PONV Score Low Risk 04/26/25 08:30 Height & Weight Height & Weight: Anesthesia: Height & Weight Height 6 ft 05/17/25 09:41 Weight: 122 kg 05/17/25 09:41 Body Mass Index (BMI) 36.4 05/17/25 09:41 Respiratory Assessment Respiratory Assessment - supervisor shrimp pond: Respiratory Tract Infection Hx - supervisor shrimp pond Hx Respiratory Tract Infection No 04/26/25 08:30 STOP Sleep Apnea STOP Sleep Apnea - supervisor [place]: STOP Sleep Apnea - supervisor shrimp pond Hx Hypertension No 04/26/25 08:30 Hx Sleep Apnea No 04/26/25 08:30 CPAP No 09/05/24 09:25 BIPAP Do you snore loudly (louder No 04/26/25 08:30 than talking or can be heard Do you often feel tired/ No 04/26/25 08:30 fatigued/ sleepy during daytime? Has anyone observed you stop No 04/26/25 08:30 breathing during sleep? STOP Results Negative 04/26/25 08:30 QUESTION #5 FULL TEXT : Do you snore loudly (louder than talking or can be heard through closed doors)? 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 Specify any problems Hx of Preganancy in last 3 N/A 04/26/25 08:30 Months Nurse Filling Out Transfusion DSCHRIBER 04/26/25 08:30 & Questions: Date: 04/26/25 04/26/25 08:30 Time: 08:32 04/26/25 08:30 Patient unable to answer at this time (ie. confused, unrespo /Reproduction History /Reproductive History - supervisor shrimp pond: /Reproductive Hx- supervisor shrimp pond Hx Now No 04/26/25 08:30 Gestational Age (in weeks): EDC: Hx Hx Para Hx Section SAB No 04/26/25 08:30 Active Medications Active Medications: Current Medications Generic Name Dose Route Start Last Admin Trade Name John PRN Reason Stop Dose Admin Lactated Ringer's 1,000 mls @ 15 mls/hr 05/17/25 09:30 05/17/25 09:51 IV 15 mls/hr .Q48H ISABELLE Administration Clindamycin Phosphate 900 mg in 50 mls @ 75 mls/hr 05/17/25 09:35 Cleocin IV 05/17/25 10:14 INTRAOP ONE PFSH Medical History Smoker Shortness of breath on exertion Wears glasses Hx of hypospadias Asthma Home Medications ?Medication ?Instructions ?Recorded ?Last Taken ?Type acetaminophen 500 mg tablet 1,000 mg PO Q8H PRN PRN pain 06/14/24 Unknown History (Tylenol Extra Strength) doxycycline hyclate 100 mg capsule 100 mg PO BID 7 days #14 caps 05/17/25 Unknown Rx oxycodone 5 mg tablet 5 mg PO Q8H PRN pain 5 days #15 05/17/25 Unknown Rx tabs Allergy/AdvReac Type Severity Reaction Status Date / Time Penicillins Allergy Severe Swelling Verified 05/17/25 09:40 Family History Mother Thyroid disorder Surgical History Hx of surgical amputation of finger Hx of hand surgery Hx of appendectomy H/O wrist surgery Social History household members: significant other and children housing: apartment current occupational status: employed 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
[2025-05-17] MEDS: Lactated Ringers 1,000 ML 1000 ML IV (10:25)
[2025-05-17] MEDS: Midazolam 2 MG/2 ML Syringe IV (10:28)
[2025-05-17] MEDS: Lidocaine 1% (5 ml sdv) 5 ML Vial IV (10:30)
[2025-05-17] MEDS: Lidocaine 1% (20 ml mdv) 20 ML Vial (10:38)
[2025-05-17] MEDS: Bupiv/Epi 0.25% 30 ML Vial (11:09)
--- NOTE | 2025-05-17 11:33 | PCM.POST.ANE ---
Anesthesia: Postop Eval I Current Vital Signs Temperature: 97.0 F Pulse Rate: 88 Blood Pressure: 121/65 Respiratory Rate: 20 Pulse Ox: 95 Oxygen Delivery Method: Room Air Assessment Airway patent: Yes Spontaneous unlabored respirations: Yes Mental status: Awake and Calm nausea: No Vomiting: No Anesthesia Complication: No Fluid Hydration Crystalloid volume administer (ml): 500 Total IV fluid infused: 500 Progress Note Anesthesia document: Postop Eval 1 completed: Yes
--- NOTE | 2025-05-17 11:45 | NEUR_PTH ---
PATIENT: CARLYLE HERRERA LOC: [facility] U#:[id number] AGE/SX: 29/M ROOM: RE05/17/[address]: Dr. Masood Parra MD : [id number] BED: DIS: 05/17/2025 SPEC #: [id number] RECD: 05/17/25 14:20 STATUS: EDGAR MAME #: [id number] TRESSA: 05/17/25 11:[address]: Masood Parra DEPT: SURGICAL PATHOLOGY RECD BY: Andrew Farris ENTERED: 05/17/25 15:11 SP TYPE: NEUROMA OTHR DR: Dr. Anne Contreras MD Tissues: A - NEUROMA Procedures: Surgery Specimen Level III HEADER OPERATION: Right hand heterotopic ossification removal, scar injection PRE-OP DIAGNOSIS: Hypertrophic scar of skin, heterotopic ossification right hand TISSUE SUBMITTED: A- Possible neuroma, right hand MICROSCOPIC DIAGNOSIS A. Soft tissue, right hand, excision: * Neuroma MICROSCOPIC DESCRIPTION Slides are reviewed. GROSS DESCRIPTION A. Received in formalin labeled with the patient's name and date of . Designated as possible neuroma right hand is a 1.2 x 0.6 x 0.4 cm argueta-white to yellow, soft to rubbery tissue fragment. Entirely submitted in [address] 05/17/2025 CPT:68961
--- NOTE | 2025-05-17 12:32 | POSTOPAN2_ITS ---
Anesthesia Postop Eval I Sum Postop Eval Completion status Anesthesia document: Postop Eval 1 completed: Yes Anesthesia Postop Eval I Summary Anesthesia Postop Eval I Summary: Anesthesia Postop Eval I: Assessment Summary Airway patent Yes 05/17/25 11:33 COFFEE MACHINE [email or web address] Spontaneous unlabored Yes 05/17/25 11:33 COFFEE MACHINE [email or web address] respirations Mental status Awake,Calm 05/17/25 11:33 COFFEE MACHINE [email or web address] nausea No 05/17/25 11:33 COFFEE MACHINE [email or web address] Vomiting No 05/17/25 11:33 COFFEE MACHINE [email or web address] Anesthesia Postop Eval I: Fluid Summary Crystalloid volume administer 500 05/17/25 11:33 COFFEE MACHINE [email or web address] (ml) Colloids volume administered ( ml) Blood Product volume administered (ml) Total IV fluid infused 500 05/17/25 11:33 COFFEE MACHINE [email or web address] Anesthesia Postop Eval I: Summary Notes Anesthesia Complication No 05/17/25 11:33 COFFEE MACHINE [email or web address] Anesthesia Complication Comment: Post-operative progress note Anesthesia: Postop Eval II Evaluation Mental status: Awake and Calm Pain Level: 1 nausea: No Vomiting: No Complications Anesthesia Complication: No
--- NOTE | 2025-05-17 12:32 | PCM.POSTANE2 ---
Anesthesia Postop Eval I Sum Postop Eval Completion status Anesthesia document: Postop Eval 1 completed: Yes Anesthesia Postop Eval I Summary Anesthesia Postop Eval I Summary: Anesthesia Postop Eval I: Assessment Summary Airway patent Yes 05/17/25 11:33 COMMERCIAL PROPERTY [email or web address] Spontaneous unlabored Yes 05/17/25 11:33 COMMERCIAL PROPERTY [email or web address] respirations Mental status Awake,Calm 05/17/25 11:33 COMMERCIAL PROPERTY [email or web address] nausea No 05/17/25 11:33 COMMERCIAL PROPERTY [email or web address] Vomiting No 05/17/25 11:33 COMMERCIAL PROPERTY [email or web address] Anesthesia Postop Eval I: Fluid Summary Crystalloid volume administer 500 05/17/25 11:33 COMMERCIAL PROPERTY [email or web address] (ml) Colloids volume administered ( ml) Blood Product volume administered (ml) Total IV fluid infused 500 05/17/25 11:33 COMMERCIAL PROPERTY [email or web address] Anesthesia Postop Eval I: Summary Notes Anesthesia Complication No 05/17/25 11:33 COMMERCIAL PROPERTY [email or web address] Anesthesia Complication Comment: Post-operative progress note Anesthesia: Postop Eval II Evaluation Mental status: Awake and Calm Pain Level: 1 nausea: No Vomiting: No Complications Anesthesia Complication: No
== END 2025-05-17 12:43 | disposition home or self-care (01) ==
LOC: SDC 09:18 → AC 09:21
PROVIDERS: PCP Internal Medicine; Visit Provider Surgery Plastic and Reconstructive Surgery
PROC: (CPT 26055; principal; 2025-05-17 11:30)
DX: T87.31 Neuroma of amputation stump, right upper extremity (principal); M24.541 Contracture, right hand; L91.0 Hypertrophic scar; W24 Contact with lifting and transmission devices, not elsewhere classified; S62.606S Fracture of unspecified phalanx of right little finger, sequela; S62.60 Fracture of unspecified phalanx of finger; F17.210 Nicotine dependence, cigarettes, uncomplicated; F17.290 Nicotine dependence, other tobacco product, uncomplicated; Z89.021 Acquired absence of right finger(s)
CPT/HCPCS: 64776; 11900; 73120; 76000; 88304